=== PATIENT | male | born 1955 | race Caucasian/White ===

== ENCOUNTER 2017-06-03 17:23 | Observation (INO) | payer BC, OTHER ==
[2017-06-03] MEDS ORDERED: Sodium Chloride 0.9% 10 ML Syringe FLUSH PRN (17:41)
[2017-06-03] MEDS ORDERED: Sodium Chloride 0.9% 2.5 ML Syringe FLUSH PRN (17:41)
[2017-06-03] MEDS ORDERED: Ketorolac 30 MG/ML SDV IVPUSH ONE (17:41)
[2017-06-03] MEDS ORDERED: Sodium Chloride 0.9% 1,000 ML IV ONE (17:41)
--- NOTE | 2017-06-03 17:46 | EDM.PDOC ---
<BrockParviz José Miguel - Last Filed: 06/03/17 22:10> ED HPI GENERAL MEDICAL PROBLEM - General Chief Complaint: Abdominal Pain Stated Complaint: SHARP ABD PAIN Time Seen by Provider: 06/03/17 17:34 - History of Present Illness INITIAL COMMENTS - FREE TEXT/NARRATIVE: CT returned with cholelithiasis questionable nonobstructing stone in the common bile duct further ultrasound did not reveal her visualized common bile duct have a phone conversation with Dr. 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 Assessment Cholelithiasis Questionable CBD nonobstructing stone Plan patient will be admitted nothing by mouth after midnight follow liver function and lipase MRCP in the morning Lamine will be consult - Related Data Allergies Allergy/AdvReac Type Severity Reaction Status Date / Time No Known Allergies Allergy Verified 06/04/17 05:11 Home Meds: Home Meds Linagliptin [Tradjenta] 5 mg PO DAILY 06/03/17 [History] Losartan/Hydrochlorothiazide [Losartan-HCTZ 100-25 MG] 0.5 tab PO DAILY [History] Simvastatin [Zocor] 40 mg PO DAILY 06/03/17 [History] amLODIPine [Norvasc] 10 mg PO DAILY 06/03/17 [History] Course - Vital Signs Last Recorded V/S: Last Vital Signs Temp 36.3 C 06/03/17 22:50 Pulse 76 06/03/17 22:50 Resp 19 06/03/17 22:50 BP 144/89 H 06/03/17 22:50 Pulse Ox 93 L 06/03/17 22:50 - Orders/Labs/Meds Orders: Active Orders 24 hr Category Date Time Status Abdomen Ltd [US] Stat Exams 06/03/17 20:12 Taken Abdomen Pelvis wo Cont [CT] Stat Exams 06/03/17 19:05 Taken CULTURE URINE [RM] Stat Lab 06/03/17 18:14 Received Sodium Chloride 0.9% [Saline Flush] Med 06/03/17 17:41 Active 10 ml FLUSH ASDIRECTED PRN Sodium Chloride 0.9% [Saline Flush] Med 06/03/17 17:41 Active 2.5 ml FLUSH ASDIRECTED PRN Saline Lock Insert [OM.PC] Stat Oth 06/03/17 17:39 Ordered Medication Orders Sodium Chloride (Normal Saline) 1,000 mls @ 125 mls/hr IV ASDIRECTED RICHARD Last Admin: 06/04/17 04:16 Dose: 125 mls/hr Morphine Sulfate (Morphine) 2 mg IVPUSH Q2H PRN PRN Reason: Pain Ondansetron HCl (Zofran) 4 mg IVPUSH Q4H PRN PRN Reason: Nausea/Vomiting Sodium Chloride (Saline Flush) 10 ml FLUSH ASDIRECTED PRN PRN Reason: Keep Vein Open Last Admin: 06/03/17 18:12 Dose: 10 ml Sodium Chloride (Saline Flush) 2.5 ml FLUSH ASDIRECTED PRN PRN Reason: Keep Vein Open Last Admin: 06/03/17 18:13 Dose: 2.5 ml Labs: Laboratory Tests 06/03/17 06/03/17 06/03/17 Range/Units 18:14 18:14 18:14 WBC 11.64 H (4.0-11.0) K/uL RBC 4.53 (4.50-5.90) M/uL Hgb 14.1 (13.0-17.0) g/dL Hct 42.5 (38.0-50.0) % MCV 93.8 (80.0-98.0) fL MCH 31.1 (27.0-32.0) pg MCHC 33.2 (31.0-37.0) g/dL RDW Std Deviation 44.3 (28.0-62.0) fl RDW Coeff of Dalton 13 (11.0-15.0) % Plt Count 224 (150-400) K/uL MPV 10.40 (7.40-12.00) fL Neut % (Auto) 82.5 H (48.0-80.0) % Lymph % (Auto) 9.6 L (16.0-40.0) % [place] % (Auto) 7.0 (0.0-15.0) % Eos % (Auto) 0.3 (0.0-7.0) % Baso % (Auto) 0.6 (0.0-1.5) % Neut # (Auto) 9.6 H (1.4-5.7) K/uL Lymph # (Auto) 1.1 (0.6-2.4) K/uL [place] # (Auto) 0.8 (0.0-0.8) K/uL Eos # (Auto) 0.0 (0.0-0.7) K/uL Baso # (Auto) 0.1 (0.0-0.1) K/uL Nucleated RBC % 0.0 /100WBC Nucleated RBCs # 0 K/uL Sodium 135 L (136-146) mmol/L Potassium 5.5 H (3.5-5.1) mmol/L Chloride 106 (98-110) mmol/L Carbon Dioxide 17 L (21-31) mmol/L BUN 40 H (6.0-23.0) mg/dL Creatinine 2.1 H (0.6-1.5) mg/dL Est Cr Clr Drug Dosing 39.52 mL/min Estimated GFR (MDRD) 32.1 ml/min Glucose 183 H (60-110) mg/dL Calcium 9.4 (8.8-10.8) mg/dL Total Bilirubin 0.3 (0.1-1.5) mg/dL AST 35 (5-40) IU/L ALT 38 (8-54) IU/L Alkaline Phosphatase 60 (40-150) Total Protein 8.5 H (6.0-8.0) g/dL Albumin 4.3 (3.4-4.8) g/dL Globulin 4.2 H (2.0-3.5) g/dL Albumin/Globulin Ratio 1.0 L (1.3-2.8) Amylase 34 (10-90) U/L Lipase 20 (7-80) U/L Urine Color YELLOW Urine Appearance CLEAR Urine pH 5.5 (5.0-8.0) Ur Specific [place] 1.020 (1.001-1.035) Urine Protein TRACE (NEGATIVE) mg/dL Urine Glucose (UA) 250 H (NEGATIVE) mg/dL Urine Ketones NEGATIVE (NEGATIVE) mg/dL Urine Occult Blood LARGE H (NEGATIVE) Urine Nitrite NEGATIVE (NEGATIVE) Urine Bilirubin NEGATIVE (NEGATIVE) Urine Urobilinogen 0.2 (<2.0) EU/dL Ur Leukocyte Esterase NEGATIVE (NEGATIVE) Urine RBC TOO NUMBEROUS TO CT (0-2/HPF) Urine WBC 0-1 (0-5/HPF) Ur Epithelial Cells RARE (NONE-FEW) Calcium Oxalate Crystal OCCASIONAL (NEGATIVE) Urine Bacteria FEW (NEGATIVE) Meds: Medications Generic Name Dose Route Start Last Admin Trade Name Heshamq PRN Reason Stop Dose Admin Sodium Chloride 1,000 mls @ 125 mls/hr 06/03/17 22:45 06/04/17 04:16 Normal Saline IV 125 mls/hr ASDIRECTED RICHARD Administration Morphine Sulfate 2 mg 06/03/17 22:36 Morphine IVPUSH Q2H PRN Pain Ondansetron HCl 4 mg 06/03/17 22:36 Zofran IVPUSH Q4H PRN Nausea/Vomiting Sodium Chloride 10 ml 06/03/17 17:41 06/03/17 18:12 Saline Flush FLUSH 10 ml ASDIRECTED PRN Administration Keep Vein Open Sodium Chloride 2.5 ml 06/03/17 17:41 06/03/17 18:13 Saline Flush FLUSH 2.5 ml ASDIRECTED PRN Administration Keep Vein Open Discontinued Medications Generic Name Dose Route Start Last Admin Trade Name Heshamq PRN Reason Stop Dose Admin Sodium Chloride 1,000 mls @ 999 mls/hr 06/03/17 17:41 06/03/17 18:12 Normal Saline IV 06/03/17 18:41 999 mls/hr STAT ONE Administration Sodium Chloride 1,000 mls @ 125 mls/hr 06/03/17 19:45 06/03/17 19:39 Normal Saline IV 125 mls/hr STAT RICHARD Administration Ketorolac Tromethamine 30 mg 06/03/17 17:41 06/03/17 18:12 Toradol IVPUSH 06/03/17 17:42 30 mg ONETIME ONE Administration Departure - Departure Time of Disposition: 22:12 Disposition: Refer to Observation Condition: Fair Clinical Impression: Right flank pain, Cholelithiasis - Discharge Information - My Orders Last 24 Hours: My Active Orders 06/03/17 17:39 Saline Lock Insert [OM.PC] Stat 06/03/17 17:41 Sodium Chloride 0.9% [Saline Flush] 10 ml FLUSH ASDIRECTED PRN Sodium Chloride 0.9% [Saline Flush] 2.5 ml FLUSH ASDIRECTED PRN 06/03/17 18:14 CULTURE URINE [RM] Stat - Assessment/Plan Last 24 Hours: My Active Orders 06/03/17 17:39 Saline Lock Insert [OM.PC] Stat 06/03/17 17:41 Sodium Chloride 0.9% [Saline Flush] 10 ml FLUSH ASDIRECTED PRN Sodium Chloride 0.9% [Saline Flush] 2.5 ml FLUSH ASDIRECTED PRN 06/03/17 18:14 CULTURE URINE [RM] Stat <Camila Ceballos - Last Filed: 06/04/17 07:03> ED HPI GENERAL MEDICAL PROBLEM - History of Present Illness INITIAL COMMENTS - FREE TEXT/NARRATIVE: HISTORY AND PHYSICAL: History of present illness: The patient is a 61-year-old male with a history of [id number] diabetes hypertension hypercholesterolemia who follows at [facility] with Dr. Carrera and presents with onset of right lower flank pain that radiates to the right mid and right lower abdomen that started at 2 PM today. It was not sudden in onset but he did feel the discomfort which seemed to progress very quickly to this current pain. He says it's very deep and does radiate to his groin. He has no history of kidney stones or kidney trouble and has had no hematuria or dysuria. He's had no fevers chills nausea vomiting or diarrhea associated with this discomfort. Patient has not had any abdominal surgical history and he did not take anything specifically for this pain. He does not have any history of trauma to the area such as falls or abnormal strenuous activity. He has no midline back pain in this discomfort does not radiate to his buttocks or to his leg. He has no weakness in his lower extremities and no neurovascular changes. He says his bowel movements have been normal for him without change in color or character. Review of systems: As per history of present illness and below otherwise all systems reviewed and negative. Past medical history: As per history of present illness and as reviewed below otherwise noncontributory. Surgical history: As per history of present illness and as reviewed below otherwise noncontributory. Social history: No reported history of drug or alcohol abuse. Family history: As per history of present illness and as reviewed below otherwise noncontributory. Physical exam: Gen.: Well-developed overweight man who is nontoxic and moves easily in the ED without distress. His vital signs have been noted by me HEENT: Atraumatic, normocephalic, negative for conjunctival pallor or scleral icterus, mucous membranes moist, throat clear, neck supple, nontender, trachea midline. Lungs: Clear to auscultation, breath sounds equal bilaterally, chest nontender. Heart: S1S2, regular rate and rhythm no overt murmurs Abdomen: Soft, nondistended, nontender. Abdomen is very rotund and there is no tympany on percussion and bowel sounds are slightly hypoactive. There is no tenderness on deep palpation of the right upper or right lower quadrants but at the right mid abdomen at the level of the umbilicus there is some discomfort on very deep palpation without rebound or guarding. Negative for masses or hepatosplenomegaly. Negative for costovertebral tenderness. Pelvis: Stable nontender. Genitourinary: Deferred. Rectal: Deferred. Extremities: Atraumatic, negative for cords or calf pain. Neurovascular unremarkable. Neuro: Awake, alert, oriented. Cranial nerves II through XII unremarkable. Cerebellum unremarkable. Motor and sensory unremarkable throughout. Exam nonfocal. Back: There are no midline step-offs in his defects of the thoracic or lumbar spine no CVA tenderness and on palpation of the right flank and right upper lumbar/thoracic area there is no reproducible tenderness or soft tissue injuries appreciated Diagnostics: UA urine culture CBC CMP amylase lipase CT scan of the abdomen and pelvis Therapeutics: IV fluids Toradol 1900: Case is endorsed to Dr. Watson to follow-up on the lab tests as well as the CAT scan results and disposition the patient Impression: Right flank pain/right abdominal pain Definitive disposition and diagnosis as appropriate pending reevaluation and review of above. Rt. Flank Pain Score (Numeric/FACES): 10 Past Medical History Cardiovascular History: Reports: Hypertension Endocrine/Metabolic History: Reports: Diabetes, Type II - Past Surgical History Musculoskeletal Surgical History: Reports: Other (See Below) Other Musculoskeletal Surgeries/Procedures:: hamstring surgery Social & Family History - Family History Family Medical History: Noncontributory - Tobacco Use Smoking Status *Q: Never Smoker - Recreational Drug Use Recreational Drug Use: No ED ROS GENERAL - Review of Systems Review Of Systems: ROS reveals no pertinent complaints other than HPI. ED EXAM, GENERAL - Physical Exam Exam: See Below (See dictation) Course - Orders/Labs/Meds Labs: Laboratory Tests 06/03/17 06/03/17 06/03/17 Range/Units 18:14 18:14 18:14 WBC 11.64 H (4.0-11.0) K/uL RBC 4.53 (4.50-5.90) M/uL Hgb 14.1 (13.0-17.0) g/dL Hct 42.5 (38.0-50.0) % MCV 93.8 (80.0-98.0) fL MCH 31.1 (27.0-32.0) pg MCHC 33.2 (31.0-37.0) g/dL RDW Std Deviation 44.3 (28.0-62.0) fl RDW Coeff of Dalton 13 (11.0-15.0) % Plt Count 224 (150-400) K/uL MPV 10.40 (7.40-12.00) fL Neut % (Auto) 82.5 H (48.0-80.0) % Lymph % (Auto) 9.6 L (16.0-40.0) % [place] % (Auto) 7.0 (0.0-15.0) % Eos % (Auto) 0.3 (0.0-7.0) % Baso % (Auto) 0.6 (0.0-1.5) % Neut # (Auto) 9.6 H (1.4-5.7) K/uL Lymph # (Auto) 1.1 (0.6-2.4) K/uL [place] # (Auto) 0.8 (0.0-0.8) K/uL Eos # (Auto) 0.0 (0.0-0.7) K/uL Baso # (Auto) 0.1 (0.0-0.1) K/uL Nucleated RBC % 0.0 /100WBC Nucleated RBCs # 0 K/uL Sodium 135 L (136-146) mmol/L Potassium 5.5 H (3.5-5.1) mmol/L Chloride 106 (98-110) mmol/L Carbon Dioxide 17 L (21-31) mmol/L BUN 40 H (6.0-23.0) mg/dL Creatinine 2.1 H (0.6-1.5) mg/dL Est Cr Clr Drug Dosing 39.52 mL/min Estimated GFR (MDRD) 32.1 ml/min Glucose 183 H (60-110) mg/dL Calcium 9.4 (8.8-10.8) mg/dL Total Bilirubin 0.3 (0.1-1.5) mg/dL AST 35 (5-40) IU/L ALT 38 (8-54) IU/L Alkaline Phosphatase 60 (40-150) Total Protein 8.5 H (6.0-8.0) g/dL Albumin 4.3 (3.4-4.8) g/dL Globulin 4.2 H (2.0-3.5) g/dL Albumin/Globulin Ratio 1.0 L (1.3-2.8) Amylase 34 (10-90) U/L Lipase 20 (7-80) U/L Urine Color YELLOW Urine Appearance CLEAR Urine pH 5.5 (5.0-8.0) Ur Specific [place] 1.020 (1.001-1.035) Urine Protein TRACE (NEGATIVE) mg/dL Urine Glucose (UA) 250 H (NEGATIVE) mg/dL Urine Ketones NEGATIVE (NEGATIVE) mg/dL Urine Occult Blood LARGE H (NEGATIVE) Urine Nitrite NEGATIVE (NEGATIVE) Urine Bilirubin NEGATIVE (NEGATIVE) Urine Urobilinogen 0.2 (<2.0) EU/dL Ur Leukocyte Esterase NEGATIVE (NEGATIVE) Urine RBC TOO NUMBEROUS TO CT (0-2/HPF) Urine WBC 0-1 (0-5/HPF) Ur Epithelial Cells RARE (NONE-FEW) Calcium Oxalate Crystal OCCASIONAL (NEGATIVE) Urine Bacteria FEW (NEGATIVE)
[2017-06-03] MEDS ORDERED: Sodium Chloride 0.9% 1,000 ML IV SCH ×2 (19:45→22:45)
[2017-06-03] MEDS ORDERED: Ondansetron 4 MG/2 ML SDV IVPUSH PRN (22:36)
[2017-06-03] MEDS ORDERED: Morphine 2 MG/ML Syringe IVPUSH PRN (22:36)
--- NOTE | 2017-06-04 08:05 | PCM.HP ---
H&P History of Present Illness - General Date of Service: 06/04/17 Admit Problem/Dx: Admission Diagnosis/Problem Admission Diagnosis/Problem Cholelithiasis Source of Information: Patient History Limitations: Reports: No Limitations - History of Present Illness Initial Comments - Free Text/Narative: 61-year-old male with a history of HTN, Hypercholesterolemia & NIDDM admitted for cholelithiasis. Patient presented to ED with right sided abdominal pain that began suddenly yesterday evening. Pain began as discomfort but rapidly increased in severity causing him to present to the ED. He denies any associated fever, chills, nausea, vomiting, dysuria, hematuria or changes in urine/stool frequency. No previous history of kidney stones or abdominal surgery. In the ED his labs and vitals were normal. CT abdomen revealed cholelithiasis questionable nonobstructing stone in the common bile duct. RUQ US was done but CBD was not visualized. Dr. Aceves was consulted from ED and she recommended admit to observation for MRCP this morning. Patient states today he is doing better. His abdominal pain has nor recurred since admission. He continues to urinate but denies any pain or difficulty. ED Course Diagnostics: UA, urine culture, CBC, CMP, amylase, lipase, CT scan of the abdomen and pelvis wo contrast, abdominal US Therapeutics: IV fluids, Toradol Consults: Dr. Aceves, General Surgery Rt. Flank Pain Score (Numeric/FACES): 10 - Related Data Allergies/Adverse Reactions: Allergies Allergy/AdvReac Type Severity Reaction Status Date / Time No Known Allergies Allergy Verified 06/04/17 05:11 Home Medications: Home Meds Linagliptin [Tradjenta] 5 mg PO DAILY 06/03/17 [History] Losartan/Hydrochlorothiazide [Losartan-HCTZ 100-25 MG] 0.5 tab PO DAILY [History] Simvastatin [Zocor] 40 mg PO DAILY 06/03/17 [History] amLODIPine [Norvasc] 10 mg PO DAILY 06/03/17 [History] Past Medical History Cardiovascular History: Reports: Hypertension Endocrine/Metabolic History: Reports: Diabetes, Type II Dermatologic History: Reports: Other (See Below) Other Dermatologic History: rash to rith upper,outer thigh - Past Surgical History Musculoskeletal Surgical History: Reports: Other (See Below) Other Musculoskeletal Surgeries/Procedures:: hamstring surgery Social & Family History - Family History Family Medical History: Noncontributory Cardiac: Reports: Hypertension - Tobacco Use Smoking Status *Q: Never Smoker Second Hand Smoke Exposure: No - Caffeine Use Caffeine Use: Reports: Coffee Other Caffeine Use: "once in a while" - Recreational Drug Use Recreational Drug Use: No H&P Review of Systems - Review of Systems: Review Of Systems: See Below General: Reports: No Symptoms HEENT: Reports: No Symptoms Pulmonary: Reports: No Symptoms Cardiovascular: Reports: No Symptoms Genitourinary: Reports: No Symptoms Musculoskeletal: Reports: No Symptoms Skin: Reports: No Symptoms Psychiatric: Reports: No Symptoms Neurological: Reports: No Symptoms Hematologic/Lymphatic: Reports: No Symptoms Immunologic: Reports: No Symptoms Exam - Exam Exam: See Below - Vital Signs Vital Signs: Last Vital Signs Temp 36.3 C 06/04/17 04:00 Pulse 93 06/04/17 04:00 Resp 18 06/04/17 04:00 BP 119/57 L 06/04/17 04:00 Pulse Ox 93 L 06/04/17 04:00 Weight: 132.5 kg - Exam General: Alert, Oriented, Cooperative HEENT: Conjunctiva Clear, EACs Clear, EOMI, Hearing Intact, Mucosa Moist & [place] , Nares Patent, Normal Nasal Septum, Posterior Pharynx Clear, Pupils Equal, Pupils Reactive, TMs Clear Neck: Supple, Trachea Midline Lungs: Clear to Auscultation, Normal Respiratory Effort Cardiovascular: Regular Rate, Regular Rhythm GI/Abdominal Exam: Normal Bowel Sounds, Soft, Non-Tender Back Exam: Normal Inspection Extremities: Normal Inspection, Normal Capillary Refill Skin: Warm, Dry, Intact Neurological: Cranial Nerves Intact, Reflexes Equal Bilateral Neuro Extensive - Mental Status: Alert, Oriented x3 Psychiatric: Alert, Normal Affect, Normal Mood - Patient Data Lab Results Last 24 hrs: Laboratory Results - last 24 hr 06/04/17 06/04/17 Range/Units 05:11 05:11 WBC 8.42 (4.0-11.0) K/uL RBC 4.32 L (4.50-5.90) M/uL Hgb 13.4 (13.0-17.0) g/dL Hct 40.3 (38.0-50.0) % MCV 93.3 (80.0-98.0) fL MCH 31.0 (27.0-32.0) pg MCHC 33.3 (31.0-37.0) g/dL RDW Std Deviation 43.9 (28.0-62.0) fl RDW Coeff of [place] 13 (11.0-15.0) % Plt Count 216 (150-400) K/uL MPV 9.90 (7.40-12.00) fL Neut % (Auto) 64.3 (48.0-80.0) % Lymph % (Auto) 22.6 (16.0-40.0) % [place] % (Auto) 10.2 (0.0-15.0) % Eos % (Auto) 2.3 (0.0-7.0) % Baso % (Auto) 0.6 (0.0-1.5) % Neut # (Auto) 5.4 (1.4-5.7) K/uL Lymph # (Auto) 1.9 (0.6-2.4) K/uL [place] # (Auto) 0.9 H (0.0-0.8) K/uL Eos # (Auto) 0.2 (0.0-0.7) K/uL Baso # (Auto) 0.1 (0.0-0.1) K/uL Nucleated RBC % 0.0 /100WBC Nucleated RBCs # 0 K/uL Sodium 139 (136-146) mmol/L Potassium 4.3 (3.5-5.1) mmol/L Chloride 110 (98-110) mmol/L Carbon Dioxide 21 (21-31) mmol/L BUN 31 H (6.0-23.0) mg/dL Creatinine 1.6 H (0.6-1.5) mg/dL Est Cr Clr Drug Dosing 51.87 mL/min Estimated GFR (MDRD) 43.9 ml/min Glucose 122 H (60-110) mg/dL Calcium 8.7 L (8.8-10.8) mg/dL Total Bilirubin 0.5 (0.1-1.5) mg/dL AST 23 (5-40) IU/L ALT 32 (8-54) IU/L Alkaline Phosphatase 57 (40-150) Total Protein 6.6 (6.0-8.0) g/dL Albumin 3.8 (3.4-4.8) g/dL Globulin 2.8 (2.0-3.5) g/dL Albumin/Globulin Ratio 1.4 (1.3-2.8) Result Diagrams: 06/04/17 05:11 06/04/17 05:11 *Q Meaningful Use (ADM) - VTE *Q VTE Criteria *Q: - Stroke *Q Stroke Criteria *Q: - AMI *Q AMI Criteria *Q: Problem List Initiated/Reviewed/Updated: Yes Orders Last 24hrs: Active Orders 24 hr Category Date Time Status NPO [Nothing Per Oral Diet] [DIET] Diet 06/04/17 Breakfast Active Abdomen w wo Cont [MR] Stat Exams 06/04/17 07:46 Ordered Morphine Med 06/03/17 22:36 Active 2 mg IVPUSH Q2H PRN Ondansetron [Zofran] Med 06/03/17 22:36 Active 4 mg IVPUSH Q4H PRN Sodium Chloride 0.9% [Normal Saline] 1,000 ml Med 06/03/17 22:45 Active IV ASDIRECTED Medication Orders Sodium Chloride (Normal Saline) 1,000 mls @ 125 mls/hr IV ASDIRECTED RICHARD Last Admin: 06/04/17 04:16 Dose: 125 mls/hr Morphine Sulfate (Morphine) 2 mg IVPUSH Q2H PRN PRN Reason: Pain Ondansetron HCl (Zofran) 4 mg IVPUSH Q4H PRN PRN Reason: Nausea/Vomiting Sodium Chloride (Saline Flush) 10 ml FLUSH ASDIRECTED PRN PRN Reason: Keep Vein Open Last Admin: 06/03/17 18:12 Dose: 10 ml Sodium Chloride (Saline Flush) 2.5 ml FLUSH ASDIRECTED PRN PRN Reason: Keep Vein Open Last Admin: 06/03/17 18:13 Dose: 2.5 ml Assessment/Plan Comment:: 61 year old male with history of HTN, NIDDM & hypercholesterolemia admitted for right abdominal pain presumed secondary to cholelithiasis and/or Nephrolithiaisis #Cholelithiasis -borderline leukocytosis at admission, now resolved -AST/ALT/TBR normal -CT abdomen-pelvis wo contrast suggestive of Cholelithiasis and probable nonobstructing choledocholithiasis in distal CBD -Abdominal US revealed Gallstones in the gallbladder with thickened wall at 0.4 cm but no signs of cholecystitis. CBD was not visualized. -General surgery Dr. Aceves was consulted from ED who recommened MRCP plan: -MRCP ordered , patient currently NPO -as per Dr. Aceves, if MRCP is negative then patient will be cleared from General surgery point of view #ASHLEY -elevated BUN 40 & Cr 2.1 at admission, improved this AM to BUN 31 & Cr 1.6 -UA positive for blood -patient denies dysuria, gross hematuria or change in urinary frequency -CT abdomen-pelvis wo contrast suggestive of possible right renal stone: mild to moderate atrophy of the right and mild atrophy of the left kidney with perinephric stranding. Small triangular-shaped calyceal calculus versus milk of calcium posterior inferior right lower lobe. Perinephric cysts on the left. No significant mass or findings for obstruction. Both ureters are upper normal caliber without definitive filling defect. -Abdominal US reveals Right nonobstructing stone, but no mention of size of stone plan: -continue IVF -start flomax for nephrolithiasis once MRCP complete -monitor renal function -hold Toradol #Nephrolithiasis, right kidney, nonobstructing -as per above -consider out-patient referral to Urology at discharge #Right sided abdominal Pain -pain improved -plan as per above #hepatic Steatosis -likely secondary to obesity and/or NIDDM -no significant changes on hepatic panel -f/u with PCP at discharge
--- NOTE | 2017-06-04 12:06 | PCM.CONS ---
H&P History of Present Illness - General Date of Service: 06/04/17 Admit Problem/Dx: Admission Diagnosis/Problem Admission Diagnosis/Problem Cholelithiasis Source of Information: Patient History Limitations: Reports: No Limitations - History of Present Illness Initial Comments - Free Text/Narative: patient is a 61-year-old male who presented last night to the emergency room with right sided abdominal pain. He denies ever having pain like this before. it came on suddenly and rapidly increased in severity. He presented to the emergency room. He denied any fevers chills nausea vomiting shortness of breath or chest pain. Workup in the emergency room revealed a mild leukocytosis and elevated BUN/creatinine and hyperkalemia. CT the abdomen pelvis showed cholelithiasis with questionable choledocholithiasis. An ultrasound was performed that showed a mildly thickened gallbladder wall, cholelithiasis, but the common bile duct was unable to be visualized. His lipase and amylaseand liver function tests and bilirubin were all within normal limits. He was given IV fluids and pain medicine. His pain resolved. He was admitted to the medicine service for observation. The pain has not returned. Hislabs this morning all appear normal. Rt. Flank Pain Score (Numeric/FACES): 10 - Related Data Allergies/Adverse Reactions: Allergies Allergy/AdvReac Type Severity Reaction Status Date / Time No Known Allergies Allergy Verified 06/04/17 05:11 Home Medications: Home Meds Linagliptin [Tradjenta] 5 mg PO DAILY 06/03/17 [History] Losartan/Hydrochlorothiazide [Losartan-HCTZ 100-25 MG] 0.5 tab PO DAILY [History] Simvastatin [Zocor] 40 mg PO DAILY 06/03/17 [History] amLODIPine [Norvasc] 10 mg PO DAILY 06/03/17 [History] Past Medical History Cardiovascular History: Reports: Hypertension Endocrine/Metabolic History: Reports: Diabetes, Type II Dermatologic History: Reports: Other (See Below) Other Dermatologic History: rash to rith upper,outer thigh - Past Surgical History Musculoskeletal Surgical History: Reports: Other (See Below) Other Musculoskeletal Surgeries/Procedures:: hamstring surgery Social & Family History - Family History Family Medical History: Noncontributory Cardiac: Reports: Hypertension - Tobacco Use Smoking Status *Q: Never Smoker Second Hand Smoke Exposure: No - Caffeine Use Caffeine Use: Reports: Coffee Other Caffeine Use: "once in a while" - Recreational Drug Use Recreational Drug Use: No H&P Review of Systems - Review of Systems: Review Of Systems: See Below Exam - Exam Exam: See Below - Vital Signs Vital Signs: Last Vital Signs Temp 36.7 C 06/04/17 08:00 Pulse 82 06/04/17 08:00 Resp 18 06/04/17 08:00 BP 141/84 H 06/04/17 08:00 Pulse Ox 94 L 06/04/17 08:00 Weight: 132.5 kg - Exam General: Alert, Oriented HEENT: Conjunctiva Clear, EOMI, Hearing Intact, Mucosa Moist & Cantril, Posterior Pharynx Clear Neck: Supple Lungs: Clear to Auscultation, Normal Respiratory Effort Cardiovascular: Regular Rate, Regular Rhythm GI/Abdominal Exam: Soft, Non-Tender, No Distention, No Mass. No: Guarding, Rigid, Rebound Back Exam: Normal Inspection Extremities: Normal Inspection - Patient Data Lab Results Last 24 hrs: Laboratory Results - last 24 hr 06/04/17 06/04/17 Range/Units 05:11 05:11 WBC 8.42 (4.0-11.0) K/uL RBC 4.32 L (4.50-5.90) M/uL Hgb 13.4 (13.0-17.0) g/dL Hct 40.3 (38.0-50.0) % MCV 93.3 (80.0-98.0) fL MCH 31.0 (27.0-32.0) pg MCHC 33.3 (31.0-37.0) g/dL RDW Std Deviation 43.9 (28.0-62.0) fl RDW Coeff of Dalton 13 (11.0-15.0) % Plt Count 216 (150-400) K/uL MPV 9.90 (7.40-12.00) fL Neut % (Auto) 64.3 (48.0-80.0) % Lymph % (Auto) 22.6 (16.0-40.0) % [place] % (Auto) 10.2 (0.0-15.0) % Eos % (Auto) 2.3 (0.0-7.0) % Baso % (Auto) 0.6 (0.0-1.5) % Neut # (Auto) 5.4 (1.4-5.7) K/uL Lymph # (Auto) 1.9 (0.6-2.4) K/uL [place] # (Auto) 0.9 H (0.0-0.8) K/uL Eos # (Auto) 0.2 (0.0-0.7) K/uL Baso # (Auto) 0.1 (0.0-0.1) K/uL Nucleated RBC % 0.0 /100WBC Nucleated RBCs # 0 K/uL Sodium 139 (136-146) mmol/L Potassium 4.3 (3.5-5.1) mmol/L Chloride 110 (98-110) mmol/L Carbon Dioxide 21 (21-31) mmol/L BUN 31 H (6.0-23.0) mg/dL Creatinine 1.6 H (0.6-1.5) mg/dL Est Cr Clr Drug Dosing 51.87 mL/min Estimated GFR (MDRD) 43.9 ml/min Glucose 122 H (60-110) mg/dL Calcium 8.7 L (8.8-10.8) mg/dL Total Bilirubin 0.5 (0.1-1.5) mg/dL AST 23 (5-40) IU/L ALT 32 (8-54) IU/L Alkaline Phosphatase 57 (40-150) Total Protein 6.6 (6.0-8.0) g/dL Albumin 3.8 (3.4-4.8) g/dL Globulin 2.8 (2.0-3.5) g/dL Albumin/Globulin Ratio 1.4 (1.3-2.8) Result Diagrams: 06/04/17 05:11 06/04/17 05:11 Consult PN Assessment/Plan Procedures: Procedures X-RAY EXAM KNEE 4 OR MORE (06/04/15) Problem List Initiated/Reviewed/Updated: Yes My Orders Last 24 Hours: My Active Orders 06/04/17 07:46 Abdomen w wo Cont [MR] Stat Plan: Symptomatic cholelthiasis possible choledocholithiasis: The patient will undergo an MRCP this morning. If that shows no evidence of choledocholithiasis he is ok to go home. I would have him follow-up in one week with me so that we can schedule him for an outpatient laparoscopic cholecystectomy. He should avoid fatty foods and return to the ED should his symptoms reoccur. If he has choledocholithiasis (which I doubt given his normal LFTs, bilirubin) he may need to undergo an ERCP. Will follow up on the results of the MRCP and make final recommendations if there is any abnormal findings.
[2017-06-04] MEDS ORDERED: Gadobenate Dimeglumine 529 MG/ML 20 ML SDV IVPUSH STA (12:54)
--- NOTE | 2017-06-04 14:02 | MR ---
EXAMINATION: MRI abdomen with and without contrast/MRCP HISTORY: CT evidence of choledocholithiasis COMPARISON: CT dated 06/03/2017 TECHNIQUE: Multiplanar and multisequence imaging obtained of the abdomen before and following the adm inistration of 6 mL of MultiHance. The MRCP protocol was used with thick slab MIP reconstructions. FINDINGS: The liver, spleen, adrenal glands, and pancreas appear normal in signal. Several cholelith iasis are noted without significant pericholecystic fluid. There is no definite filling defect noted within the common bile duct. No intra or extrahepatic biliary ductal dilatation. The pancreatic duct appears normal. There is moderate focal thickening of the proximal second portion of the duodenum wit h mild adjacent edema. This area of the duodenum also demonstrates mildly increased relative and enha ncement. The kidneys enhance and function symmetrically without evidence of obstructive uropathy. There is a c yst within the upper pole of the left kidney. No significant abdominal ascites. No bulky retroperiton eal lymphadenopathy. Visualized bone marrow signal appears normal. IMPRESSION: 1. Cholelithiasis without evidence cholecystitis. 2. No choledocholithiasis noted. 3. Moderate stranding mucosal thickening involving the proximal second portion of the duodenum. This likely represents underlying duodenitis versus peptic ulcer disease.
--- NOTE | 2017-06-04 14:48 | PCM.SN ---
- Free Text/Narrative Note: As per Dr. Rothman patient found to have duodenitis. She has ordered H.pylori studies. If positive will treat, if not patient can be sent home on 40mg pantoprazole and follow-up with her in 1 Week.
--- NOTE | 2017-06-04 15:57 | CT ---
EXAM DATE: 06/03/17 PATIENT'S AGE: 61 Patient: RAMBO JIMENES Facility: [place], [place] Site . Site : 1955 Study: CT Abdomen/Pelvis WO TUNG [id number]/4/2018 7:37:35 PM Ordering Physician: Lin Jensen Final Report: INDICATION: Right-sided flank pain radiating into the abdomen. TECHNIQUE: CT abdomen and pelvis without contrast. COMPARISON: None FINDINGS: Lower chest: Strandy atelectasis at both costophrenic angles. Liver: Mild low attenuation diffusely. Spleen: Unremarkable. Pancreas: Unremarkable. Gallbladder and bile ducts: Peripherally mineralized small dependent gallstones. No inflammation. No biliary ductal dilatation. Punctate 1 mm density dependently distal common bile duct may be a nonobstructing choledocholith. Kidneys: Mild to moderate atrophy of the right and mild atrophy of the left kidney with perinephric stranding. Small triangular-shaped calyceal calculus versus milk of calcium posterior inferior right lower lobe. Perinephric cysts on the left. No significant mass or findings for obstruction. Both ureters are upper normal caliber without definitive filling defect. Adrenal glands: Unremarkable. GI tract: Unremarkable. Appendix is normal. Vascular structures: There is moderate diffuse atherosclerosis without aneurysmal dilatation. Lymph nodes: Unremarkable. Miscellaneous: Unremarkable. No free air or significant free fluid. Pelvic Organs: Unremarkable. Bones: Moderately prominent left greater than right sacroiliac degenerative arthrosis. No fracture or bone lesion. Diffuse mild degenerative disk disease. Mild osteoarthritis of both hips and symphysis pubis. IMPRESSION: Cholelithiasis and probable nonobstructing choledocholithiasis distal CBD. Direct visualization or MRCP for further characterization if there is ongoing clinical concern. Correlation with LFT studies recommended. Small amount of calcium cyst or small caliceal calculus lower pole on the right. Mild atrophy right kidney. Mild hepatic steatosis. Please note that all CT scans at this facility use dose modulation, iterative reconstruction, and/or weight-based dosing when appropriate to reduce radiation dose to as low as reasonably achievable. Dictated by Raul Casanova MD @ Jun 03 2017 7:50PM (Electronic Signature) Report Signed by Proxy. [facility]
--- NOTE | 2017-06-04 16:14 | US ---
EXAM DATE: 06/03/17 PATIENT'S AGE: 61 Patient: RAMBO JIMENES Facility: [place], [place] Site . Site : 1955 Study: US Abdomen [id number] 9:33:18 PM Ordering Physician: Lin Jensen Final Report: Indication: Pain. Findings : Examination is limited due to patient body habitus and overlying bowel gas. The liver is diffusely coarsened and echogenic reflecting fatty infiltration. The right kidney is increased in echotexture relative to the liver and an echogenic focus reflecting a stone is noted in the right lower kidney. Gallstones are noted in the gallbladder and the wall is thickened at 0.4 cm. A Goodman`s sign was not encountered during the course of this exam. The common bile duct was unable to be visualized. The pancreas is not visualized. Impression: 1. Cholelithiasis. 2. Stone right lower kidney, nonobstructing. 3. Cholelithiasis without ultrasound evidence of cholecystitis. 4. Hepatic steatosis. 5. Nonvisualization of the pancreas. Dictated by Josselyn Aguilar MD @ Jun 03 2017 10:01PM (Electronic Signature) Report Signed by Proxy. [facility]
--- NOTE | 2017-06-04 16:24 | PCM.DCSUM1 ---
Discharge Summary - Hospital Course Free Text/Narrative:: 61 yo male admitted 06/03/17 for right sided abdominal pain. His pain was acute and resolved shortly after admission. He did not have this pain in the past. Work-up was suggestive of Cholelithiasis. Dr. Aceves was consulted and ordered MRCP which was negative. Patient was cleared by general surgery and recommended out-patient f/u in 1 week. He was discharged home 06/04/17. #Cholelithiasis -borderline leukocytosis at admission, now resolved -AST/ALT/TBR normal -CT abdomen-pelvis wo contrast suggestive of Cholelithiasis and probable nonobstructing choledocholithiasis in distal CBD -Abdominal US revealed Gallstones in the gallbladder with thickened wall at 0.4 cm but no signs of cholecystitis. CBD was not visualized. -MRCP negative -consulted Dr. Aceves General surgery plan: -f/u with Dr. Aceves in 1 week #ASHLEY -elevated BUN 40 & Cr 2.1 at admission, improved this AM to BUN 31 & Cr 1.6 -UA positive for blood -Abdominal US reveals Right nonobstructing stone, but no mention of size of stone -patient instructed to increase PO fluid intake and will f/u with PCP for monitoring of renal function #Nephrolithiasis, right kidney, nonobstructing -f/u with PCP #Right sided abdominal Pain, resolved -plan as per above #hepatic Steatosis -likely secondary to obesity and/or NIDDM -no significant changes on hepatic panel -recommended exercise and weight loss -f/u with PCP - Discharge Data Discharge Date: 06/04/17 Discharge Disposition: Home, Self-Care 01 Condition: Good - Patient Instructions Diet, Other: avoid fatty foods until follow-up with general surgery Activity: As Tolerated Notify Provider of: Fever, Increased Pain, Swelling and Redness, Drainage, Nausea and/or Vomiting - Discharge Plan Prescriptions/Med Rec: Pantoprazole Sodium [Protonix] 40 mg PO DAILY #30 tablet.dr Home Medications: Home Meds Linagliptin [Tradjenta] 5 mg PO DAILY 06/03/17 [History] Losartan/Hydrochlorothiazide [Losartan-HCTZ 100-25 MG] 0.5 tab PO DAILY [History] Simvastatin [Zocor] 40 mg PO DAILY 06/03/17 [History] amLODIPine [Norvasc] 10 mg PO DAILY 06/03/17 [History] Pantoprazole Sodium [Protonix] 40 mg PO DAILY #30 tablet. 06/04/17 [Rx] Forms: ED Department Discharge Referrals: Cecily Aceves MD [Physician] - PCP,None [Primary Care Provider] - (1 week to monitor renal fuction ) - Discharge Summary/Plan Comment DC Time >30 min.: No - Patient Data Vitals - Most Recent: Last Vital Signs Temp 36.4 C 06/04/17 14:00 Pulse 72 06/04/17 14:00 Resp 18 06/04/17 14:00 BP 145/84 H 06/04/17 14:00 Pulse Ox 94 L 06/04/17 14:00 Weight - Most Recent: 132.5 kg I&O - Last 24 hours: Intake & Output 06/04/17 06/04/17 06/04/17 06:59 14:59 22:59 Intake Total 616 Output Total 1000 Balance -384 Lab Results - Last 24 hrs: Laboratory Results - last 24 hr 06/04/17 06/04/17 06/04/17 Range/Units 05:11 05:11 05:11 WBC 8.42 (4.0-11.0) K/uL RBC 4.32 L (4.50-5.90) M/uL Hgb 13.4 (13.0-17.0) g/dL Hct 40.3 (38.0-50.0) % MCV 93.3 (80.0-98.0) fL MCH 31.0 (27.0-32.0) pg MCHC 33.3 (31.0-37.0) g/dL RDW Std Deviation 43.9 (28.0-62.0) fl RDW Coeff of [place] 13 (11.0-15.0) % Plt Count 216 (150-400) K/uL MPV 9.90 (7.40-12.00) fL Neut % (Auto) 64.3 (48.0-80.0) % Lymph % (Auto) 22.6 (16.0-40.0) % [place] % (Auto) 10.2 (0.0-15.0) % Eos % (Auto) 2.3 (0.0-7.0) % Baso % (Auto) 0.6 (0.0-1.5) % Neut # (Auto) 5.4 (1.4-5.7) K/uL Lymph # (Auto) 1.9 (0.6-2.4) K/uL [place] # (Auto) 0.9 H (0.0-0.8) K/uL Eos # (Auto) 0.2 (0.0-0.7) K/uL Baso # (Auto) 0.1 (0.0-0.1) K/uL Nucleated RBC % 0.0 /100WBC Nucleated RBCs # 0 K/uL Sodium 139 (136-146) mmol/L Potassium 4.3 (3.5-5.1) mmol/L Chloride 110 (98-110) mmol/L Carbon Dioxide 21 (21-31) mmol/L BUN 31 H (6.0-23.0) mg/dL Creatinine 1.6 H (0.6-1.5) mg/dL Est Cr Clr Drug Dosing 51.87 mL/min Estimated GFR (MDRD) 43.9 ml/min Glucose 122 H (60-110) mg/dL Calcium 8.7 L (8.8-10.8) mg/dL Total Bilirubin 0.5 (0.1-1.5) mg/dL AST 23 (5-40) IU/L ALT 32 (8-54) IU/L Alkaline Phosphatase 57 (40-150) Total Protein 6.6 (6.0-8.0) g/dL Albumin 3.8 (3.4-4.8) g/dL Globulin 2.8 (2.0-3.5) g/dL Albumin/Globulin Ratio 1.4 (1.3-2.8) H. pylori IgG Antibody NEGATIVE (NEG) Med Orders - Current: Current Medications Sodium Chloride (Normal Saline) 1,000 mls @ 125 mls/hr IV [facility]ED [facility] Last Admin: 06/04/17 04:16 Dose: 125 mls/hr Morphine Sulfate (Morphine) 2 mg IVPUSH Q2H PRN PRN Reason: Pain Ondansetron HCl (Zofran) 4 mg IVPUSH Q4H PRN PRN Reason: Nausea/Vomiting Sodium Chloride (Saline Flush) 10 ml FLUSH ASDIRECTED PRN PRN Reason: Keep Vein Open Last Admin: 06/03/17 18:12 Dose: 10 ml Sodium Chloride (Saline Flush) 2.5 ml FLUSH ASDIRECTED PRN PRN Reason: Keep Vein Open Last Admin: 06/03/17 18:13 Dose: 2.5 ml Discontinued Medications Gadobenate Dimeglumine (Multihance) 20 ml IVPUSH ONETIME STA Stop: 06/04/17 12:55 Last Admin: 06/04/17 12:55 Dose: 10 ml Sodium Chloride (Normal Saline) 1,000 mls @ 999 mls/hr IV STAT ONE Stop: 06/03/17 18:41 Last Admin: 06/03/17 18:12 Dose: 999 mls/hr Sodium Chloride (Normal Saline) 1,000 mls @ 125 mls/hr IV STAT RICHARD Last Admin: 06/03/17 19:39 Dose: 125 mls/hr Ketorolac Tromethamine (Toradol) 30 mg IVPUSH ONETIME ONE Stop: 06/03/17 17:42 Last Admin: 06/03/17 18:12 Dose: 30 mg *Q Meaningful Use (DIS) - VTE *Q VTE Criteria *Q: - Stroke *Q Stroke Criteria *Q: - AMI *Q AMI Criteria *Q:
--- NOTE | 2017-06-04 16:53 | PCM.SN ---
- Free Text/Narrative Note: patient was found to have inflammation around the duodenum on MRI. H. pylori antigen test was negative. He should go home on Protonix 40 mg every before meals. I will see him in clinic in 1-2 weeks to schedule him for an outpatient EGD and laparoscopic cholecystectomy.
== END 2017-06-04 18:00 | disposition home or self-care (01) ==
LOC: MW.ED 17:23 → MW.MS 22:13
PROVIDERS: ADMIT Family Medicine; ATTEND Family Medicine
DX: K80.20 Calculus of gallbladder without cholecystitis without obstruction (principal); D72.829 Elevated white blood cell count, unspecified; N17.9 Acute kidney failure, unspecified; N20.0 Calculus of kidney; K76.0 Fatty (change of) liver, not elsewhere classified; E66.9 Obesity, unspecified; E11.9 Type 2 diabetes mellitus without complications; I10 Essential (primary) hypertension; E78.00 Pure hypercholesterolemia, unspecified; K29.80 Duodenitis without bleeding; Z79.899 Other long term (current) drug therapy
CPT/HCPCS: 36415; 74176; 74183; 76705; 80053; 81001; 82150; 83690; 85025; 86677; 87086; 93005; 96361; 96374; 99285; A9577; J1885; J7040; 99284; G0378

== ENCOUNTER 2017-06-24 12:28 | Day surgery (SDC) | payer BC ==
[~2017-06-24 12:28] MED LIST: Lactated Ringers 1,000 ML IV SCH; Sodium Chloride 0.9% 10 ML Syringe FLUSH PRN; Sodium Chloride 0.9% 2.5 ML Syringe FLUSH PRN
--- NOTE | 2017-06-24 14:18 | PCM.PREANE ---
Preanesthetic Assessment - Anesthesia/Transfusion/Family Hx Anesthesia History: Prior Anesthesia Without Reaction Other Type of Anesthesia Reaction Comment: "spinal did not work with my hamstring surgery" Family History of Anesthesia Reaction: No Transfusion History: No Prior Transfusion(s) - Review of Systems General: No Symptoms Pulmonary: No Symptoms Cardiovascular: No Symptoms Neurological: No Symptoms Other: Reports: None - Physical Assessment NPO Status Date: 06/23/17 Height: 1.83 m Weight: 131.542 kg ASA Class: 2 Mental Status: Alert & Oriented x3 Airway Class: Mallampati = 1 Dentition: Reports: Missing Tooth/Teeth ROM/Head Extension: Full Lungs: Clear to Auscultation, Normal Respiratory Effort Cardiovascular: Regular Rate, Regular Rhythm - Allergies Allergies/Adverse Reactions: Allergies Allergy/AdvReac Type Severity Reaction Status Date / Time No Known Allergies Allergy Verified 06/21/17 15:15 - Anesthesia Plan Pre-Op Medication Ordered: None - Acknowledgements Anesthesia Type Planned: MAC Pt an Appropriate Candidate for the Planned Anesthesia: Yes Alternatives and Risks of Anesthesia Discussed w Pt/Guardian: Yes Pt/Guardian Understands and Agrees with Anesthesia Plan: Yes PreAnesthesia Questionnaire Cardiovascular History: Reports: High Cholesterol, Hypertension Musculoskeletal History: Reports: Fracture, Osteoarthritis Other Musculoskeletal History: hx fx foot and fx finger rt hand Endocrine/Metabolic History: Reports: Diabetes, Type II, Obesity/BMI 30+ Dermatologic History: Reports: None - Past Surgical History Head Surgeries/Procedures: Reports: None Cardiovascular Surgical History: Reports: None Musculoskeletal Surgical History: Reports: Other (See Below) Other Musculoskeletal Surgeries/Procedures:: hamstring surgery , surgical tx for fx finger on rt hand - SUBSTANCE USE Smoking Status *Q: Never Smoker Second Hand Smoke Exposure: No Recreational Drug Use History: No - HOME MEDS Home Medications: Home Meds Linagliptin [Tradjenta] 5 mg PO DAILY 06/03/17 [History] Simvastatin [Zocor] 40 mg PO DAILY 06/03/17 [History] Pantoprazole Sodium [Protonix] 40 mg PO DAILY #30 tablet. 06/04/17 [Rx] Losartan Potassium 25 mg PO DAILY 06/21/17 [History] Nebivolol [Bystolic] 20 mg PO DAILY 06/21/17 [History] - CURRENT (IN HOUSE) MEDS Current Meds: Current Medications Lactated Ringer's (Ringers, Lactated) 1,000 mls @ 125 mls/hr IV ASDIRECTED RICHARD Sodium Chloride (Saline Flush) 10 ml FLUSH ASDIRECTED PRN PRN Reason: Keep Vein Open Sodium Chloride (Saline Flush) 2.5 ml FLUSH ASDIRECTED PRN PRN Reason: Keep Vein Open
[2017-06-24] MEDS ORDERED: Lidocaine 2% 5 ML SDV ONE (14:41)
[2017-06-24] MEDS ORDERED: Propofol 200 MG/20 ML SDV ONE (14:42)
[2017-06-24] MEDS ORDERED: Midazolam 1 MG/ML 2 ML SDV ONE (14:42)
--- NOTE | 2017-06-24 15:28 | PCM.OPNOTE ---
- General Post-Op/Procedure Note Date of Surgery/Procedure: 06/24/17 Operative Procedure(s): EGD Findings: Duodenal ulcers Pre Op Diagnosis: Duodenitis Post-Op Diagnosis: Duodenal ulcers Anesthesia Technique: MAC Primary Surgeon: Cecily Aceves Condition: Good
--- NOTE | 2017-06-24 16:01 | PCM.POSTAN ---
POST ANESTHESIA ASSESSMENT - MENTAL STATUS Mental Status: Alert, Oriented - RESPIRATORY Respiratory Status: Respiratory Rate WNL, Airway Patent, O2 Saturation Stable - CARDIOVASCULAR CV Status: Pulse Rate WNL, Blood Pressure Stable - GASTROINTESTINAL GI Status: No Symptoms - POST OP HYDRATION Hydration Status: Adequate & Stable
--- NOTE | 2017-06-24 16:38 | PCM48HPAN ---
Post Anesthesia Note - EVALUATION WITHIN 48HRS OF ANESTHETIC Vital Signs in Normal Range: Yes Patient Participated in Evaluation: Yes Respiratory Function Stable: Yes Airway Patent: Yes Cardiovascular Function Stable: Yes Hydration Status Stable: Yes Pain Control Satisfactory: Yes Nausea and Vomiting Control Satisfactory: Yes Mental Status Recovered: Yes
--- NOTE | 2017-06-24 23:09 | OR ---
SURGEON: CECILY ACEVES MD DATE OF PROCEDURE: 06/24/2017 PREOPERATIVE DIAGNOSIS: Duodenitis. POSTOPERATIVE DIAGNOSIS: Duodenal ulcers. PROCEDURE PERFORMED: Diagnostic EGD and biopsies. ENDOSCOPIST: Cecily Aceves M.D. ANESTHESIA: MAC. INSTRUMENT USED: Olympus endoscope. EXTENT OF EXAM: To the second portion of the duodenum. PREPARATION: Good. LIMITATIONS: None. INDICATION FOR EXAMINATION: The patient is a 62-year-old male who was admitted to the hospital with severe epigastric pain. An MRI of the abdomen showed duodenitis. The patient was discharged home on Protonix. After discharge, the patient developed melena. He was started on sucralfate as well. After starting the sucralfate, the melena subsided. The patient complains that the Protonix gives him joint aches and so it is unknown whether or not he is taking this medication faithfully. Either way, the patient and I discussed the need for a diagnostic EGD. We discussed the procedure, expected perioperative course, and risks including bleeding or perforation. The patient verbalized understanding and wishes to proceed. PROCEDURE IN DETAIL: The patient was brought into the endoscopy suite and placed in a beach chair position. A time-out was completed verifying the patient's name, age, date of , allergies, and procedure to be performed. A bite block was placed in the patient's mouth and monitored anesthesia care induced. Continuous oxygen was provided via nasal cannula throughout the procedure. After adequate sedation was achieved, a well lubricated endoscope was placed in the patient's mouth and advanced under direct visualization to the level of the second portion of the duodenum. The second portion of the duodenum appeared normal and a photograph was taken. The scope was then fully withdrawn while examining the color, texture, anatomy, integrity, mucosa from the cecum to the anal canal. The patient was found to have a large ulcer along the posterior aspect of the duodenum, in the distal first portion. This did not appear to have any stigmata of bleeding. Several small ulcers were noted around this area. The first portion of the duodenum did appear inflamed and biopsies were taken. The scope was then brought in the stomach and a photograph was taken of the pylorus as well as the GE junction. Both appeared normal. The gastric mucosa was free of inflammation or ulceration. Biopsies were taken of the gastric antrum, body, and fundus and sent for H. pylori testing and histologic review. The scope was then brought into the distal esophagus. A photograph was taken of the Z-line, which appeared normal. The scope was then fully withdrawn and the remainder of the esophageal mucosa appeared normal. The scope was removed from the patient. The procedure terminated. The patient tolerated the procedure well and was taken to the PACU in stable condition. ENDOSCOPIC DIAGNOSIS: Duodenal ulcers. RECOMMENDATIONS: I explained to the patient the importance of taking his PPI daily. I will switch him to omeprazole 40 mg every morning to see if this is better tolerated. He should continue to take the sucralfate. We will follow up with the patient in 2 weeks. LULÚ MEADE /[id number]
== END 2017-06-24 16:30 | disposition home or self-care (01) ==
LOC: MW.SDS 12:28
PROVIDERS: ATTEND Surgery
DX: K29.80 Duodenitis without bleeding (principal); K29.50 Unspecified chronic gastritis without bleeding; I10 Essential (primary) hypertension; M17.0 Bilateral primary osteoarthritis of knee; K80.20 Calculus of gallbladder without cholecystitis without obstruction; E11.9 Type 2 diabetes mellitus without complications; E66.9 Obesity, unspecified; Z68.39 Body mass index [BMI] 39.0-39.9, adult; Z79.899 Other long term (current) drug therapy; Z79.84 Long term (current) use of oral hypoglycemic drugs
CPT/HCPCS: 43239; J2250; J7120; 88305; 88312; J2704

== ENCOUNTER 2017-09-02 06:22 | Day surgery (SDC) | payer BC ==
--- NOTE | 2017-09-02 06:58 | PCM.PREANE ---
Preanesthetic Assessment - Anesthesia/Transfusion/Family Hx Anesthesia History: Prior Anesthesia Without Reaction Other Type of Anesthesia Reaction Comment: "spinal did not work with my hamstring surgery" Family History of Anesthesia Reaction: No Transfusion History: No Prior Transfusion(s) Intubation History: Unknown - Review of Systems General: No Symptoms Pulmonary: No Symptoms Cardiovascular: No Symptoms Gastrointestinal: No Symptoms, Other (recently diagnosed duodenal ulcer) Neurological: No Symptoms Other: Reports: None - Physical Assessment Height: 1.83 m Weight: 130.181 kg ASA Class: 3 Mental Status: Alert & Oriented x3 Airway Class: Mallampati = 3 Dentition: Reports: Missing Tooth/Teeth (multiple upper and lower) Thyro-Mental Finger Breadths: 3 Mouth Opening Finger Breadths: 2 ROM/Head Extension: Full Lungs: Clear to Auscultation, Normal Respiratory Effort Cardiovascular: Regular Rate, Regular Rhythm - Lab Values: Laboratory Last Values POC Glucose 170 mg/dL (60-110) H 09/02/17 06:41 - Allergies Allergies/Adverse Reactions: Allergies Allergy/AdvReac Type Severity Reaction Status Date / Time No Known Allergies Allergy Verified 06/21/17 15:15 - Blood Blood Available: No - Anesthesia Plan Pre-Op Medication Ordered: None - Acknowledgements Anesthesia Type Planned: MAC Pt an Appropriate Candidate for the Planned Anesthesia: Yes Alternatives and Risks of Anesthesia Discussed w Pt/Guardian: Yes Pt/Guardian Understands and Agrees with Anesthesia Plan: Yes PreAnesthesia Questionnaire Cardiovascular History: Reports: High Cholesterol, Hypertension Gastrointestinal History: Reports: Cholelithiasis, Other (See Below) Other Gastrointestinal History: duodenal ulcers, Musculoskeletal History: Reports: Fracture, Osteoarthritis Other Musculoskeletal History: hx fx foot and fx finger rt hand Endocrine/Metabolic History: Reports: Diabetes, Type II, Obesity/BMI 30+ Dermatologic History: Reports: None - Past Surgical History Head Surgeries/Procedures: Reports: None Cardiovascular Surgical History: Reports: None GI Surgical History: Reports: EGD (2 months ago) Musculoskeletal Surgical History: Reports: Other (See Below) Other Musculoskeletal Surgeries/Procedures:: hamstring surgery , surgical tx for fx finger on rt hand - SUBSTANCE USE Smoking Status *Q: Never Smoker Second Hand Smoke Exposure: No Recreational Drug Use History: No - HOME MEDS Home Medications: Home Meds Linagliptin [Tradjenta] 5 mg PO DAILY 06/03/17 [History] Simvastatin [Zocor] 40 mg PO DAILY 06/03/17 [History] Losartan Potassium 25 mg PO DAILY 06/21/17 [History] Nebivolol [Bystolic] 20 mg PO DAILY 06/21/17 [History] Omeprazole 40 mg PO DAILY #60 cap.sr 06/24/17 [Rx] Sucralfate 1 gm PO QID #56 tablet 06/24/17 [Rx] - CURRENT (IN HOUSE) MEDS Current Meds: Current Medications Lactated Ringer's (Ringers, Lactated) 1,000 mls @ 125 mls/hr IV ASDIRECTED [facility] Last Admin: 09/02/17 06:50 Dose: 125 mls/hr Sodium Chloride (Saline Flush) 10 ml FLUSH ASDIRECTED PRN PRN Reason: Keep Vein Open Sodium Chloride (Saline Flush) 2.5 ml FLUSH ASDIRECTED PRN PRN Reason: Keep Vein Open Sodium Chloride (Saline Flush) 10 ml FLUSH ASDIRECTED PRN PRN Reason: Keep Vein Open Sodium Chloride (Saline Flush) 2.5 ml FLUSH ASDIRECTED PRN PRN Reason: Keep Vein Open
[2017-09-02] MEDS ORDERED: fentaNYL 100 MCG/2 ML SDV ONE (07:28)
[2017-09-02] MEDS ORDERED: Lidocaine 2% 5 ML SDV ONE (07:28)
[2017-09-02] MEDS ORDERED: Midazolam 1 MG/ML 2 ML SDV ONE (07:28)
[2017-09-02] MEDS ORDERED: Propofol 200 MG/20 ML SDV ONE (07:28)
--- NOTE | 2017-09-02 07:59 | PCM.OPNOTE ---
- General Post-Op/Procedure Note Date of Surgery/Procedure: 09/02/17 Operative Procedure(s): Diagnostic EGD Findings: Healed duodenal ulcers. Normal mucosa Pre Op Diagnosis: Duodenal ulcer Post-Op Diagnosis: Resolved duodenal ulcers Anesthesia Technique: MAC Primary Surgeon: Cecily Aceves Condition: Good
--- NOTE | 2017-09-02 08:17 | PCM48HPAN ---
Post Anesthesia Note - EVALUATION WITHIN 48HRS OF ANESTHETIC Vital Signs in Normal Range: Yes Patient Participated in Evaluation: Yes Respiratory Function Stable: Yes Airway Patent: Yes Cardiovascular Function Stable: Yes Hydration Status Stable: Yes Pain Control Satisfactory: Yes Nausea and Vomiting Control Satisfactory: Yes Mental Status Recovered: Yes Resp Rate: 10 - COMMENTS/OBSERVATIONS Free Text/Narrative:: no anesthesia problems
--- NOTE | 2017-09-02 09:25 | OR ---
SURGEON: JOSE JUAN SALEEM MD DATE OF PROCEDURE: 09/02/2017 PREOPERATIVE DIAGNOSIS: Duodenal ulcer. POSTOPERATIVE DIAGNOSIS: Normal esophagogastroduodenoscopy. PROCEDURE PERFORMED: Diagnostic esophagogastroduodenoscopy. ANESTHESIA: MAC. INSTRUMENT USED: Olympus endoscope. EXTENT OF EXAMINATION: Second portion of duodenum. PREPARATION: Good. LIMITATIONS: None. INDICATION FOR EXAMINATION: The patient is a 62-year-old male who presented two months ago with severe epigastric pain. Workup revealed duodenal ulcers. He was placed on a PPI, and his symptoms have resolved. The patient does have cholelithiasis and is scheduled for a laparoscopic cholecystectomy. Prior to this procedure, a decision was made to proceed with a diagnostic EGD to ensure that the duodenal ulcers have completely healed. The patient and I discussed the procedure, expected perioperative course, and risks including bleeding or perforation. The patient verbalized understanding and wishes to proceed. PROCEDURE IN DETAIL: The patient was brought into the endoscopy suite and placed in a beach chair position. A time-out was completed verifying the patient's name, age, date of , allergies, and procedure to be performed. A bite-block was placed in the patient's mouth and monitored anesthesia care induced. Continuous oxygen was provided via nasal cannula throughout the procedure. After adequate sedation was achieved, a well-lubricated endoscope was placed in the patient's mouth and advanced under direct visualization to the level of the second portion of duodenum. This appeared normal and a photograph was taken. The scope was then fully withdrawn while examining the color, texture, anatomy, and integrity of the mucosa of the upper GI tract. The patient's duodenum appeared to be well healed with no evidence of any residual inflammation or ulceration. The scope was brought into the stomach, and a photograph was taken of the pylorus as well as the GE junction. Both appeared normal. The gastric mucosa was free of pathology. The scope was then brought into the distal esophagus, and a photograph was taken of the Z-line. This appeared normal. There was no evidence of esophagitis or reflux. The remainder of the esophageal mucosa was normal. The scope was then removed from the patient. The procedure was terminated, and the patient was transferred to the PACU in stable condition. ENDOSCOPIC DIAGNOSIS: Normal esophagogastroduodenoscopy. RECOMMENDATIONS: Continue omeprazole for now. The patient is scheduled for a laparoscopic cholecystectomy and will continue with procedure. LULÚ MEADE /[id number]
== END 2017-09-02 08:30 | disposition home or self-care (01) ==
LOC: MW.SDS 06:22
PROVIDERS: ATTEND Surgery
DX: K26.9 Duodenal ulcer, unspecified as acute or chronic, without hemorrhage or perforation (principal); I10 Essential (primary) hypertension; E11.9 Type 2 diabetes mellitus without complications; Z79.899 Other long term (current) drug therapy
CPT/HCPCS: 43235; 82962; J2250; J3010; J7120; 00731; J2704

== ENCOUNTER 2017-09-14 06:42 | Day surgery (SDC) | payer BC ==
[~2017-09-14 06:42] MED LIST changes: +ceFAZolin 2 GM in Premix Bag 1 BAG IV ONE
[2017-09-14] MEDS ORDERED: Propofol 200 MG/20 ML SDV ONE (07:07)
[2017-09-14] MEDS ORDERED: fentaNYL 100 MCG/2 ML SDV ONE ×2 (07:07→08:08)
[2017-09-14] MEDS ORDERED: Midazolam 1 MG/ML 2 ML SDV ONE (07:07)
--- NOTE | 2017-09-14 07:14 | PCM.PREANE ---
Preanesthetic Assessment - Anesthesia/Transfusion/Family Hx Anesthesia History: Prior Anesthesia Without Reaction Other Type of Anesthesia Reaction Comment: "spinal did not work with my hamstring surgery" Family History of Anesthesia Reaction: No Transfusion History: No Prior Transfusion(s) Intubation History: Unknown - Review of Systems General: No Symptoms Pulmonary: No Symptoms Cardiovascular: No Symptoms Gastrointestinal: No Symptoms, Other (cholelithiasis) Neurological: No Symptoms Other: Reports: None - Physical Assessment O2 Sat by Pulse Oximetry: 93 Respiratory Rate: 16 Vital Signs: Last Vital Signs Temp 36.4 C 09/14/17 06:47 Pulse 68 09/14/17 06:47 Resp 16 09/14/17 06:47 BP 147/92 H 09/14/17 06:47 Pulse Ox 93 L 09/14/17 06:47 Height: 1.83 m Weight: 130.181 kg ASA Class: 3 Mental Status: Alert & Oriented x3 Airway Class: Mallampati = 2 Dentition: Reports: Broken Tooth/Teeth (multiple), Missing Tooth/Teeth ( multiple upper and lower) Thyro-Mental Finger Breadths: 3 Mouth Opening Finger Breadths: 3 ROM/Head Extension: Full Lungs: Clear to Auscultation, Normal Respiratory Effort Cardiovascular: Regular Rate, Regular Rhythm - Allergies Allergies/Adverse Reactions: Allergies Allergy/AdvReac Type Severity Reaction Status Date / Time No Known Allergies Allergy Verified 09/09/17 07:55 - Blood Blood Available: No - Anesthesia Plan Pre-Op Medication Ordered: None - Acknowledgements Anesthesia Type Planned: General Anesthesia Pt an Appropriate Candidate for the Planned Anesthesia: Yes Alternatives and Risks of Anesthesia Discussed w Pt/Guardian: Yes Pt/Guardian Understands and Agrees with Anesthesia Plan: Yes PreAnesthesia Questionnaire Cardiovascular History: Reports: High Cholesterol, Hypertension Gastrointestinal History: Reports: Cholelithiasis, Other (See Below) Other Gastrointestinal History: duodenal ulcers Musculoskeletal History: Reports: Fracture, Osteoarthritis Other Musculoskeletal History: hx fx foot and fx finger rt hand Endocrine/Metabolic History: Reports: Diabetes, Type II, Obesity/BMI 30+ Dermatologic History: - Past Surgical History Head Surgeries/Procedures: Reports: None Cardiovascular Surgical History: Reports: None GI Surgical History: Reports: EGD Musculoskeletal Surgical History: Reports: Other (See Below) Other Musculoskeletal Surgeries/Procedures:: hamstring surgery , surgical tx for fx finger on rt hand - SUBSTANCE USE Smoking Status *Q: Never Smoker Second Hand Smoke Exposure: No Recreational Drug Use History: No - HOME MEDS Home Medications: Home Meds Linagliptin [Tradjenta] 5 mg PO DAILY 06/03/17 [History] Simvastatin [Zocor] 40 mg PO DAILY 06/03/17 [History] Losartan Potassium 25 mg PO DAILY 06/21/17 [History] Nebivolol [Bystolic] 20 mg PO DAILY 06/21/17 [History] Omeprazole 40 mg PO DAILY #60 cap.sr 06/24/17 [Rx] Sucralfate 1 gm PO QID #56 tablet 06/24/17 [Rx] - CURRENT (IN HOUSE) MEDS Current Meds: Current Medications Lactated Ringer's (Ringers, Lactated) 1,000 mls @ 125 mls/hr IV ASDIRECTED [facility] Last Admin: 09/14/17 06:52 Dose: 125 mls/hr Sodium Chloride (Saline Flush) 10 ml FLUSH ASDIRECTED PRN PRN Reason: Keep Vein Open Sodium Chloride (Saline Flush) 2.5 ml FLUSH ASDIRECTED PRN PRN Reason: Keep Vein Open Discontinued Medications Fentanyl (Sublimaze) Confirm Administered Dose 200 mcg .ROUTE .STK-MED ONE Stop: 09/14/17 07:08 Cefazolin Sodium/Dextrose 2 gm (/ Premix) 50 mls @ 100 mls/hr IV ONETIME ONE Stop: 09/13/17 12:36 Midazolam HCl (Versed 1 Mg/Ml) Confirm Administered Dose 2 mg .ROUTE .STK-MED ONE Stop: 09/14/17 07:08 Propofol (Diprivan 20 Ml) Confirm Administered Dose 200 mg .ROUTE .STK-MED ONE Stop: 09/14/17 07:08
[2017-09-14] MEDS ORDERED: Ondansetron 4 MG/2 ML SDV ONE (07:15)
[2017-09-14] MEDS ORDERED: Glycopyrrolate 0.2 MG/ML SDV ONE (07:15)
[2017-09-14] MEDS ORDERED: Ketorolac 30 MG/ML SDV ONE (07:15)
[2017-09-14] MEDS ORDERED: Neostigmine Methylsulfate 1 MG/ML 5 ML Syringe ONE (07:15)
[2017-09-14] MEDS ORDERED: Lidocaine 2% 5 ML SDV ONE (07:15)
[2017-09-14] MEDS ORDERED: Scopolamine 1.5 MG Transdermal Patch TRDERM PRN (07:15)
[2017-09-14] MEDS ORDERED: Rocuronium 10 MG/ML 10 ML Syringe ONE (07:15)
[2017-09-14] MEDS ORDERED: Desflurane 240 ML Bottle ONE (07:19)
[2017-09-14] MEDS ORDERED: Bupivacaine 0.5% 30 ML SDV ONE (07:23)
[2017-09-14] MEDS ORDERED: Phenylephrine/Normal Saline 100 MCG/ML 10 ML Syringe ONE ×2 (08:00→08:22)
[2017-09-14] MEDS ORDERED: ePHEDrine 50 MG/ML SDV ONE (08:18)
[2017-09-14] MEDS ORDERED: fentaNYL 100 MCG/2 ML SDV IVPUSH PRN (09:25)
--- NOTE | 2017-09-14 09:33 | PCM.OPNOTE ---
- General Post-Op/Procedure Note Date of Surgery/Procedure: 09/14/17 Operative Procedure(s): Laparoscopic cholecystectomy Findings: Mildly cirrhotic liver. Mild-moderately inflamed gallbladder. Pre Op Diagnosis: Symptomatic cholelithiasis Post-Op Diagnosis: same Anesthesia Technique: General ET Tube Primary Surgeon: Cecily Aceves EBL in mLs: 20 Condition: Good
--- NOTE | 2017-09-14 10:00 | PCM.POSTAN ---
POST ANESTHESIA ASSESSMENT - MENTAL STATUS Mental Status: Alert, Oriented - RESPIRATORY Respiratory Status: Respiratory Rate WNL, Airway Patent, O2 Saturation Stable, Supplemental Oxygen (per NC) - CARDIOVASCULAR CV Status: Pulse Rate WNL, Blood Pressure Stable - GASTROINTESTINAL GI Status: No Symptoms - PAIN Pain Score: 4 - POST OP HYDRATION Hydration Status: Adequate & Stable - OBSERVATIONS Free Text/Narrative:: Pt stable for discharge to phase II recovery. No anesthesia complications.
--- NOTE | 2017-09-14 10:37 | OR ---
SURGEON: JOSE JUAN SALEEM MD DATE OF PROCEDURE: 09/14/2017 PREOPERATIVE DIAGNOSIS: Symptomatic cholelithiasis. POSTOPERATIVE DIAGNOSIS: Symptomatic cholelithiasis. PROCEDURE PERFORMED: Laparoscopic cholecystectomy. ANESTHESIA: General endotracheal anesthesia. FLUIDS: See anesthesia record. URINE OUTPUT: See anesthesia record. ESTIMATED BLOOD LOSS: 20 mL. PATHOLOGY: Gallbladder. FINDINGS: Mildly cirrhotic liver. The gallbladder with [id number] inflammation. COMPLICATIONS: None. INDICATIONS: The patient is a 62-year-old male, who recently was treated for duodenal ulcer. Two weeks ago, the patient underwent a diagnostic EGD which revealed complete resolution of his peptic ulcer disease. He was incidentally found to have gallstones during his workup. The patient continues to have right upper quadrant and right shoulder pain. A decision was made to remove the gallbladder. The patient and I discussed the laparoscopic and open approaches. I explained that should I be unable to safely complete it laparoscopically, I would convert to open. We discussed the procedure, expected perioperative course, and risks including bleeding, infection, or damage to surrounding structures. The patient verbalized understanding and wishes to proceed. PROCEDURE IN DETAIL: The patient was brought into the OR and placed on the OR table in supine position. A time-out was completed verifying the patient's name, age, date of , allergies, and procedure to be performed. General endotracheal anesthesia was induced. The left arm was tucked to the patient's side and a Reyes catheter placed. The abdomen was prepped and draped in usual standard fashion. An area above the umbilicus was anesthetized with 0.5% Marcaine plain. A 2 cm supraumbilical incision was made using an 11 blade. Cautery was used to dissect down to the subcutaneous fat. S retractors were used to dissect bluntly down to the level of the fascia. The fascia was elevated with Louie's and incised sharply with the Metzenbaum scissors. Entry into the abdomen was palpated with my finger. A 12 mm Darrell trocar was inserted in the abdomen. The abdomen was insufflated to a pressure of 13 mmHg. A 5 mm 30-degree scope was inserted in the abdomen, and I inspected the area underneath my initial incision. No damage to surrounding structures was noted. The patient was placed into reverse Trendelenburg position and airplaned slightly to the left. The trocars were placed in the following locations: One in the epigastric area, one in the right flank, and one along the right subcostal margin in the midclavicular line. I attempted to grasp the dome of the gallbladder with an atraumatic grasper, but it was tense and full of bile. An aspirating needle was brought into the field and used to aspirate 120 mL of bilious appearing fluid from the gallbladder. This allowed me to adequately manipulate the gallbladder without undue tension. The dome of the gallbladder was lifted cranially. There were adhesions. The surrounding omentum was adhesed up to the body of the gallbladder wall. These were lysed with gentle blunt dissection as well as hook cautery. The infundibulum was noted to be encased in inflamed-appearing fat. This was scored using hook cautery and then bluntly dissected. The cystic duct and artery were skeletonized to allow adequate visualization of their insertion points on the gallbladder. I then cleared away the gallbladder from the proximal one-third of the cystic plate. A photograph was taken once I reached my critical view. A clip bean sprout grower was used to doubly clip and ligate my cystic duct and artery. The gallbladder was then removed from the gallbladder fossa using electrocautery. A small rent was made in the gallbladder wall and bile was spilled into the abdomen. Once the gallbladder was completely freed from the gallbladder fossa, it was placed in an EndoCatch bag and removed through the supraumbilical port site. The 12 mm trocar was placed back in the abdomen, and I inspected my operative field. The spilled bile and blood was suctioned clear. Hemostasis was achieved using electrocautery, and a small amount of Surgicel was placed in the gallbladder fossa. This appeared to achieve adequate hemostasis. The remainder of the abdomen was irrigated with normal saline until it ran clear. Inspection of the liver was notable for mild cirrhosis. The 5 mm trocars were then removed under direct visualization and the abdomen allowed to desufflate. The 12 mm Darrell trocar was removed as well. The fascia at the supraumbilical port site was closed with [id number] 0 Vicryl suture. The subcutaneous fat was closed with interrupted 3-0 Vicryls and the skin closed with a running 4-0 Monocryl stitch. The 5 mm trocar sites were closed with interrupted 4-0 Monocryls. Steri-Strips and sterile dressings were applied. The patient tolerated the procedure well and was taken to PACU in stable condition. LULÚ MEADE /[id number]
== END 2017-09-14 11:55 | disposition home or self-care (01) ==
LOC: MW.SDS 06:42
PROVIDERS: ATTEND Surgery
DX: K80.10 Calculus of gallbladder with chronic cholecystitis without obstruction (principal); K26.9 Duodenal ulcer, unspecified as acute or chronic, without hemorrhage or perforation; I10 Essential (primary) hypertension; M17.0 Bilateral primary osteoarthritis of knee; E11.9 Type 2 diabetes mellitus without complications; E78.00 Pure hypercholesterolemia, unspecified; E66.9 Obesity, unspecified; Z68.38 Body mass index [BMI] 38.0-38.9, adult; Z79.899 Other long term (current) drug therapy; Z79.84 Long term (current) use of oral hypoglycemic drugs
CPT/HCPCS: 47562; A9270; J1885; J2250; J2405; J3010; J7120; 88304; J2704

== ENCOUNTER 2017-10-04 09:13 | Emergency (ER) | payer OTHER, BC ==
[2017-10-04] MEDS ORDERED: Diphtheria,Pertussis(Acell),Tetanus Vaccine 0.5 ML Syringe IM ONE (09:30)
[2017-10-04] MEDS ORDERED: Silver Sulfadiazine 1% Crm 50 GM Tube TOP ONE (09:30)
--- NOTE | 2017-10-04 09:33 | EDM.PDOC ---
ED HPI GENERAL MEDICAL PROBLEM - General Chief Complaint: Burn Stated Complaint: RIGHT WRIST BURN WORK RELATED Time Seen by Provider: 10/04/17 09:28 Source of Information: Reports: Patient - History of Present Illness INITIAL COMMENTS - FREE TEXT/NARRATIVE: HISTORY AND PHYSICAL: History of present illness: [Patient was at work this morning morning and a radiator cap popped on a radiator burning his anterior wrist with antifreeze, painful blistering lesion approximately 3 inches in diameter no fever nausea vomiting chills sweats No chest pain shortness breath headache dizziness palpitation no bowel or urine symptoms ] Review of systems: As per history of present illness and below otherwise all systems reviewed and negative. Past medical history: As per history of present illness and as reviewed below otherwise noncontributory. Surgical history: As per history of present illness and as reviewed below otherwise noncontributory. Social history: No reported history of drug or alcohol abuse. Family history: As per history of present illness and as reviewed below otherwise noncontributory. Physical exam: HEENT: Atraumatic, normocephalic, pupils reactive, negative for conjunctival pallor or scleral icterus, mucous membranes moist, throat clear, neck supple, nontender, trachea midline. Lungs: Clear to auscultation, breath sounds equal bilaterally, chest nontender. Heart: S1S2, regular, negative for clicks, rubs, or JVD. Abdomen: Soft, nondistended, nontender. Negative for masses or hepatosplenomegaly. Negative for costovertebral tenderness. Pelvis: Stable nontender. Genitourinary: Deferred. Rectal: Deferred. Extremities: Atraumatic, negative for cords or calf pain. Neurovascular unremarkable. Neuro: Awake, alert, oriented. Cranial nerves II through XII unremarkable. Cerebellum unremarkable. Motor and sensory unremarkable throughout. Exam nonfocal. Skin as per history of present illness otherwise remarkable Diagnostics: [Clinical] Therapeutics: [Status updated Silvadene twice a day 10 days] Impression: [Second-degree burn right wrist], less than 1% total body surface area Definitive disposition and diagnosis as appropriate pending reevaluation and review of above. - Related Data Allergies Allergy/AdvReac Type Severity Reaction Status Date / Time No Known Allergies Allergy Verified 10/04/17 09:29 Home Meds: Home Meds Linagliptin [Tradjenta] 5 mg PO DAILY 06/03/17 [History] Simvastatin [Zocor] 40 mg PO DAILY 06/03/17 [History] Losartan Potassium 25 mg PO DAILY 06/21/17 [History] Nebivolol [Bystolic] 20 mg PO DAILY 06/21/17 [History] Omeprazole 40 mg PO DAILY #60 cap.sr 06/24/17 [Rx] Sucralfate 1 gm PO QID #56 tablet 06/24/17 [Rx] Past Medical History Cardiovascular History: Reports: High Cholesterol, Hypertension Gastrointestinal History: Reports: Cholelithiasis, Other (See Below) Other Gastrointestinal History: duodenal ulcers Musculoskeletal History: Reports: Fracture, Osteoarthritis Other Musculoskeletal History: hx fx foot and fx finger rt hand Endocrine/Metabolic History: Reports: Diabetes, Type II, Obesity/BMI 30+ Dermatologic History: - Past Surgical History Head Surgeries/Procedures: Reports: None Cardiovascular Surgical History: Reports: None GI Surgical History: Reports: EGD Musculoskeletal Surgical History: Reports: Other (See Below) Other Musculoskeletal Surgeries/Procedures:: hamstring surgery , surgical tx for fx finger on rt hand Social & Family History - Family History Family Medical History: Noncontributory Cardiac: Reports: Hypertension - Tobacco Use Smoking Status *Q: Never Smoker Second Hand Smoke Exposure: No - Caffeine Use Caffeine Use: Reports: Coffee Other Caffeine Use: "once in a while" - Recreational Drug Use Recreational Drug Use: No ED ROS GENERAL - Review of Systems Review Of Systems: ROS reveals no pertinent complaints other than HPI. ED EXAM, GENERAL - Physical Exam Exam: See Below Departure - Departure Time of Disposition: 09:31 Disposition: Home, Self-Care 01 Condition: Good Clinical Impression: Burn - Discharge Information Referrals: Denver Carrera MD [Primary Care Provider] - Additional Instructions: Silvadene applied twice a day 10 days Change dressing as needed if it becomes soiled Return if symptoms persist or worsen or redness warmth or pus fever nausea vomiting chills sweats which are signs of the burn becoming infected Follow-up with plastic surgery, call phone number below to schedule appropriate follow-up [facility] - [facility] Professional Building [address] [place] [address], [address] [place] [address] The following information is given to patients seen in the emergency department who are being discharged to home. This information is to outline your options for follow-up care. We provide all patients seen in our emergency department with a follow-up referral. The need for follow-up, as well as the timing and circumstances, are variable depending upon the specifics of your emergency department visit. If you don't have a primary care physician on staff, we will provide you with a referral. We always advise you to contact your personal physician following an emergency department visit to inform them of the circumstance of the visit and for follow-up with them and/or the need for any referrals to a consulting specialist. The emergency department will also refer you to a specialist when appropriate. This referral assures that you have the opportunity for follow-up care with a specialist. All of these measure are taken in an effort to provide you with optimal care, which includes your follow-up. Under all circumstances we always encourage you to contact your private physician who remains a resource for coordinating your care. When calling for follow-up care, please make the office aware that this follow-up is from your recent emergency room visit. If for any reason you are refused follow-up, please contact the [facility] emergency department at and asked to speak to the emergency department charge nurse.
== END 2017-10-04 10:37 | disposition home or self-care (01) ==
LOC: MW.ED 09:13
DX: T23.271A Burn of second degree of right wrist, initial encounter (principal); E78.00 Pure hypercholesterolemia, unspecified; I10 Essential (primary) hypertension; E11.9 Type 2 diabetes mellitus without complications; Z23 Encounter for immunization; Z79.899 Other long term (current) drug therapy; X16.XXXA Contact with hot heating appliances, radiators and pipes, initial encounter; Y99.0 Civilian activity done for income or pay
CPT/HCPCS: 16020; 90471; 90715; 99283; A9270

== ENCOUNTER 2018-01-20 18:10 | Emergency (ER) | payer BC, OTHER ==
--- NOTE | 2018-01-20 19:16 | EDM.PDOC ---
ED HPI GENERAL MEDICAL PROBLEM - General Chief Complaint: General Stated Complaint: RIGHT SIDE OF RIBS ARE IN PAIN Time Seen by Provider: 01/20/18 19:13 Source of Information: Reports: Patient History Limitations: Reports: No Limitations - History of Present Illness INITIAL COMMENTS - FREE TEXT/NARRATIVE: HISTORY AND PHYSICAL: History of present illness: Patient is a 62-year-old male here with rib pain following injury today. He states that he tripped over a mat earlier today and fell on to his left side. He denies hitting his head or LOC. He states he is having pain with deep breaths and sneezing now. He has not taken anything for his pain. Review of systems: As per history of present illness and below otherwise all systems reviewed and negative. Past medical history: As per history of present illness and as reviewed below otherwise noncontributory. Surgical history: As per history of present illness and as reviewed below otherwise noncontributory. Social history: No reported history of drug or alcohol abuse. Family history: As per history of present illness and as reviewed below otherwise noncontributory. Physical exam: General: patient sitting comfortably in no acute distress HEENT: Atraumatic, normocephalic, pupils reactive, negative for conjunctival pallor or scleral icterus, mucous membranes moist, throat clear, neck supple, nontender, trachea midline. Lungs: Clear to auscultation, breath sounds equal bilaterally, tenderness to palpation of right lateral chest. No ecchymosis noted and skin intact. Heart: S1S2, regular, negative for clicks, rubs, or JVD. Abdomen: Soft, nondistended, nontender. Negative for masses or hepatosplenomegaly. Negative for costovertebral tenderness. Pelvis: Stable nontender. Genitourinary: Deferred. Rectal: Deferred. Extremities: Atraumatic, negative for cords or calf pain. Neurovascular unremarkable. Neuro: Awake, alert, oriented. Cranial nerves II through XII unremarkable. Cerebellum unremarkable. Motor and sensory unremarkable throughout. Exam nonfocal. Notes: Diagnostics: Ribs with chest, right - age indeterminate 2nd right anterior fracture, no in location of patients pain Therapeutics: None Impression: Chest contusion Plan: 1. Alternate motrin and tylenol as needed, use incentive spirometer as discussed 2. Follow up with primary care provider 3. Return to ED as needed as discussed Definitive disposition and diagnosis as appropriate pending reevaluation and review of above. - Related Data Allergies Allergy/AdvReac Type Severity Reaction Status Date / Time No Known Allergies Allergy Verified 10/04/17 09:29 Home Meds: Home Meds Linagliptin [Tradjenta] 5 mg PO DAILY 06/03/17 [History] Simvastatin [Zocor] 40 mg PO DAILY 06/03/17 [History] Losartan Potassium 25 mg PO DAILY 06/21/17 [History] Nebivolol [Bystolic] 20 mg PO DAILY 06/21/17 [History] Past Medical History Cardiovascular History: Reports: High Cholesterol, Hypertension Respiratory History: Reports: None Gastrointestinal History: Reports: Cholelithiasis, Other (See Below) Other Gastrointestinal History: duodenal ulcers Genitourinary History: Reports: None Musculoskeletal History: Reports: Fracture, Osteoarthritis Other Musculoskeletal History: hx fx foot and fx finger rt hand Neurological History: Reports: None Psychiatric History: Reports: None Endocrine/Metabolic History: Reports: Diabetes, Type II, Obesity/BMI 30+ Hematologic History: Reports: None Immunologic History: Reports: None Oncologic (Cancer) History: Reports: None Dermatologic History: Reports: None - Infectious Disease History Infectious Disease History: Reports: None - Past Surgical History Head Surgeries/Procedures: Reports: None Cardiovascular Surgical History: Reports: None GI Surgical History: Reports: EGD Musculoskeletal Surgical History: Reports: Other (See Below) Other Musculoskeletal Surgeries/Procedures:: hamstring surgery , surgical tx for fx finger on rt hand Oncologic Surgical History: Reports: None Social & Family History - Family History Family Medical History: Noncontributory Cardiac: Reports: Hypertension - Tobacco Use Smoking Status *Q: Never Smoker Second Hand Smoke Exposure: No - Caffeine Use Caffeine Use: Reports: Coffee, Soda Other Caffeine Use: "once in a while" - Recreational Drug Use Recreational Drug Use: No ED ROS GENERAL - Review of Systems Review Of Systems: ROS reveals no pertinent complaints other than HPI. ED EXAM, GENERAL - Physical Exam Exam: See Below (see dictation) Course - Vital Signs Last Recorded V/S: Last Vital Signs Temp 36.2 C 01/20/18 18:49 Pulse 87 01/20/18 18:49 Resp 18 01/20/18 18:49 BP 173/100 H 01/20/18 18:49 Pulse Ox 94 L 01/20/18 18:49 - Orders/Labs/Meds Orders: Active Orders 24 hr Category Date Time Status Ribs 2V w Chest Rt [CR] Stat Exams 01/20/18 19:03 Taken Departure - Departure Time of Disposition: 20:01 Disposition: Home, Self-Care 01 Condition: Good Clinical Impression: Rib contusion - Discharge Information Referrals: Denver Carrera MD [Primary Care Provider] - Forms: ED Department Discharge Additional Instructions: The following information is given to patients seen in the emergency department who are being discharged to home. This information is to outline your options for follow-up care. We provide all patients seen in our emergency department with a follow-up referral. The need for follow-up, as well as the timing and circumstances, are variable depending upon the specifics of your emergency department visit. If you don't have a primary care physician on staff, we will provide you with a referral. We always advise you to contact your personal physician following an emergency department visit to inform them of the circumstance of the visit and for follow-up with them and/or the need for any referrals to a consulting specialist. The emergency department will also refer you to a specialist when appropriate. This referral assures that you have the opportunity for follow-up care with a specialist. All of these measure are taken in an effort to provide you with optimal care, which includes your follow-up. Under all circumstances we always encourage you to contact your private physician who remains a resource for coordinating your care. When calling for follow-up care, please make the office aware that this follow-up is from your recent emergency room visit. If for any reason you are refused follow-up, please contact the [facility] Emergency Department at and asked to speak to the emergency department charge nurse. [facility] [address] [place] [id number] [address] 1. Alternate motrin and tylenol as needed, use incentive spirometer as discussed 2. Follow up with primary care provider 3. Return to ED as needed as discussed - My Orders Last 24 Hours: My Active Orders 01/20/18 19:03 Ribs 2V w Chest Rt [CR] Stat - Assessment/Plan Last 24 Hours: My Active Orders 01/20/18 19:03 Ribs 2V w Chest Rt [CR] Stat
--- NOTE | 2018-01-21 20:45 | CR ---
EXAM DATE: 01/20/18 PATIENT'S AGE: 62 Patient: RAMBO JIMENES Facility: [place], [place] Site . Site : 1955 Study: XRay Chest ribs w chest [id number]/23/2018 7:43:29 PM Ordering Physician: Doctor Santana Final Report: INDICATION: fell on right side TECHNIQUE: Chest 1 view and right-sided rib series COMPARISON: None FINDINGS: Cardiovascular and mediastinum: The heart is normal size. Tortuosity of the descending thoracic aorta. Mediastinum is within normal limits. Lungs and pleural space: Mild scarring/atelectasis along the left lung base. No sign of pleural effusion. No pneumothorax. Bones: Age indeterminate 2nd right anterior rib fracture. Degenerative changes. Other: Cholecystectomy changes. IMPRESSION: 1. No acute cardiopulmonary disease. 2. Age indeterminate 2nd right anterior rib fracture. Dictated by Michelet Christine MD @ 01/20/2018 7:53:09 PM Dictated by: Michelet Christine MD @ 01/20/2018 19:56:53 (Electronic Signature) Report Signed by Proxy. [facility] CENTERAgapito
== END 2018-01-20 20:16 | disposition home or self-care (01) ==
LOC: MW.ED 18:10
DX: S20.212A Contusion of left front wall of thorax, initial encounter (principal); I10 Essential (primary) hypertension; E78.00 Pure hypercholesterolemia, unspecified; E11.9 Type 2 diabetes mellitus without complications; Z79.899 Other long term (current) drug therapy; W01.198A Fall on same level from slipping, tripping and stumbling with subsequent striking against other object, initial encounter
CPT/HCPCS: 71101-26-RT; 71101-RT; 99283

== ENCOUNTER 2018-07-07 09:42 | Emergency (ER) | payer OTHER ==
--- NOTE | 2018-07-07 10:24 | EDM.PDOC ---
ED HPI GENERAL MEDICAL PROBLEM - General Chief Complaint: Upper Extremity Injury/Pain Stated Complaint: LEFT HAND FINGER INJURY Time Seen by Provider: 07/07/18 10:09 Source of Information: Reports: Patient History Limitations: Reports: No Limitations - History of Present Illness INITIAL COMMENTS - FREE TEXT/NARRATIVE: HISTORY AND PHYSICAL: History of present illness: Patient is a 63-year-old male who presents to the emergency room today with a crush injury to his left pinky. He states he got his finger crushed in the door of the bus about an hour ago. He states he is up-to-date on his tetanus vaccine. He denies any pain at this time. He states that when it happened he had immediate pain but now he feels numb. Patient denies any other prior hand injury or trauma. Patient does have some nausea. He denies fever, chills, vomiting, all other GI or symptoms.Patient does have a history of hypertension. He states he just took his hypertension medications not long before arrival to the ED. Review of systems: As per history of present illness and below otherwise all systems reviewed and negative. Past medical history: As per history of present illness and as reviewed below otherwise noncontributory. Surgical history: As per history of present illness and as reviewed below otherwise noncontributory. Social history: See social history for further information Family history: As per history of present illness and as reviewed below otherwise noncontributory. Physical exam: General: Patient is alert, orientated, and in no acute distress. He is sitting comfortably on exam table. HEENT: Atraumatic, normocephalic, pupils equal and reactive bilaterally, negative for conjunctival pallor or scleral icterus, mucous membranes moist, TMs normal bilaterally, throat clear, neck supple, nontender, trachea midline. No drooling or trismus noted. No meningeal signs. No hot potato voice noted. Lungs: Clear to auscultation, breath sounds equal bilaterally, chest nontender. Heart: S1S2, regular rate and rhythm without overt murmur Abdomen: Soft, nondistended, nontender. Negative for masses or hepatosplenomegaly. Negative for costovertebral tenderness. Pelvis: Stable nontender. Genitourinary: Deferred. Rectal: Deferred. Skin: See extremities. Intact, warm, dry. No lesions or rashes noted. Extremities: There is a 2-3 cm laceration of the left distal volar aspect of the pinky, unable to visualize bone or tendon underneath. Otherwise, moves all extremities per self. Neurovascular unremarkable. Neuro: Patient is able to move left pinky without difficulty. Awake, alert, oriented. Cranial nerves II through XII unremarkable. Cerebellum unremarkable. Motor and sensory unremarkable throughout. Exam nonfocal. Notes: Since patient had a crush injury, will get imaging to make sure there is non- underneath fracture. Pain medication was offered to patient for discomfort but he declines at this time. Has no other injury or concerns related to today's visit. Imaging shows an open minimally displaced fracture through the distal fifth phalanx with an overlying soft tissue laceration and swelling in osseous structures and joint spaces appear preserved mild subchondral cystic change noted within the third MCP joint. Did anesthetize the area following cleansed with iodine/ Betadine solution with 1% lidocaine plain. Usual and customary procedures were taken for suture placement. Patient did tolerate the procedure well. Did speak with Dr. Calles, the hand specialist/surgeon, who will follow-up outpatient with him. Sterile dressing was applied. Patient was given 1 g of Ancef here in the ER and will be sent home with a prescription for antibiotics. Patient was offered pain medication for home but he declines at this time and will just use Tylenol a prescription for Bacliff was sent if patient decides to pick these up. Diagnostics: 5th digit xray Therapeutics: Wound care, sutures, Ancef IM, dressing Prescription: Bacliff (#30), Zofran, Bactrim DS Impression: 1. Open fracture of distal fifth phalanx 2. Soft tissue laceration Plan: 1. Take antibiotics / medications as prescribed. You can use Zofran for nausea. 2. Alternate Tylenol and Ibuprofen as needed for pain. You can use Bacliff as needed for moderate to severe pain. Caution as this medication can cause drowsiness so careful with activities outside of the house or operating a vehicle / machinery. 3. Follow up with Dr. Calles who is a hand specialist for definitive treatment. Would like you re-evaluated by her in the next 1-2 days. 4. Limit use of the finger until follow up with Dr. Calles. Can use ice as needed for swelling. 5. Follow up with your primary care provider for high blood pressure in the next 1-2 days. 6. Return to the ED as needed and as discussed. Definitive disposition and diagnosis as appropriate pending reevaluation and review of above. Right Finger-Little Pain Score (Numeric/FACES): 2 - Related Data Allergies Allergy/AdvReac Type Severity Reaction Status Date / Time No Known Allergies Allergy Verified 10/04/17 09:29 Home Meds: Home Meds Linagliptin [Tradjenta] 5 mg PO DAILY 06/03/17 [History] Simvastatin [Zocor] 40 mg PO DAILY 06/03/17 [History] Losartan Potassium 25 mg PO DAILY 06/21/17 [History] Nebivolol [Bystolic] 20 mg PO DAILY 06/21/17 [History] Acetaminophen/HYDROcodone [Bacliff 325-5 MG] 1 dose PO Q4H #30 tablet 07/07/18 [Rx ] Ondansetron [Zofran ODT] 4 mg PO Q6H PRN #10 tab.dis 07/07/18 [Rx] Sulfamethoxazole/Trimethoprim [Bactrim Ds Tablet] 1 each PO BID 10 Days #20 tablet 07/07/18 [Rx] Past Medical History Cardiovascular History: Reports: High Cholesterol, Hypertension Respiratory History: Reports: None Gastrointestinal History: Reports: Cholelithiasis, Other (See Below) Other Gastrointestinal History: duodenal ulcers Genitourinary History: Reports: None Musculoskeletal History: Reports: Fracture, Osteoarthritis Other Musculoskeletal History: hx fx foot and fx finger rt hand Neurological History: Reports: None Psychiatric History: Reports: None Endocrine/Metabolic History: Reports: Diabetes, Type II, Obesity/BMI 30+ Hematologic History: Reports: None Immunologic History: Reports: None Oncologic (Cancer) History: Reports: None Dermatologic History: Reports: None - Infectious Disease History Infectious Disease History: Reports: None - Past Surgical History Head Surgeries/Procedures: Reports: None Cardiovascular Surgical History: Reports: None GI Surgical History: Reports: Cholecystectomy, EGD Musculoskeletal Surgical History: Reports: Other (See Below) Other Musculoskeletal Surgeries/Procedures:: hamstring surgery , surgical tx for fx finger on rt hand Oncologic Surgical History: Reports: None Social & Family History - Family History Family Medical History: Noncontributory Cardiac: Reports: Hypertension - Tobacco Use Smoking Status *Q: Never Smoker - Caffeine Use Caffeine Use: Reports: Coffee Other Caffeine Use: "once in a while" - Recreational Drug Use Recreational Drug Use: No Review of Systems - Review of Systems Review Of Systems: ROS reveals no pertinent complaints other than HPI. ED EXAM, GENERAL - Physical Exam Exam: See Below (see dictation) ED TRAUMA EXTREMITY PROCEDURES - Laceration/Wound Repair Left Distal Digit - 5th (Baby) Lac/Wound Length In cm: 3 Appearance: Superficial, Irregular, Mildly Contaminated Distal NVT: Neuro & Vascular Intact, No Tendon Injury Anesthetic Type: Local Local Anesthesia - Lidocaine (Xylocaine): 1% Plain Local Anesthetic Volume: 4cc Skin Prep: Chlorhexidine (Hibiciens), Providone-Iodine (Betadine) Exploration/Debridement/Repair: Wound Explored Suture Size: other (5-0) # of Sutures: 6 Suture Type: Nylon, Interrupted Sterile Dressing Applied: Nurse Tetanus Status Addressed: Yes Complications: No Course - Vital Signs Last Recorded V/S: Last Vital Signs Temp 95.7 F 07/07/18 09:56 Pulse 60 07/07/18 11:49 Resp 15 07/07/18 11:49 BP 147/80 H 07/07/18 11:49 Pulse Ox 95 07/07/18 11:49 - Orders/Labs/Meds Orders: Active Orders 24 hr Category Date Time Status Ondansetron [Zofran ODT] Med 07/07/18 11:01 Active 8 mg PO ONETIME PRN Medication Orders Ondansetron HCl (Zofran Odt) 8 mg PO ONETIME PRN PRN Reason: Nausea/Vomiting Meds: Medications Generic Name Dose Route Start Last Admin Trade Name Freq PRN Reason Stop Dose Admin Ondansetron HCl 8 mg 07/07/18 11:01 Zofran Odt PO ONETIME PRN Nausea/Vomiting Discontinued Medications Generic Name Dose Route Start Last Admin Trade Name Freq PRN Reason Stop Dose Admin Cefazolin Sodium 1 gm 07/07/18 10:59 07/07/18 11:38 Ancef IM 07/07/18 11:00 1 gm ONETIME ONE Administration Lidocaine HCl 5 ml 07/07/18 10:01 07/07/18 10:04 Xylocaine-Mpf 1% INJECT 07/07/18 10:02 5 ml ONETIME ONE Administration Departure - Departure Time of Disposition: 11:51 Disposition: Home, Self-Care 01 Clinical Impression: Laceration Phalanx, distal fracture of finger Qualifiers: Encounter type: initial encounter Finger: little finger Fracture type: open Fracture alignment: displaced Laterality: left Qualified Code(s): S62.637B - Displaced fracture of distal phalanx of left little finger, initial encounter for open fracture - Discharge Information Prescriptions: Acetaminophen/HYDROcodone [Bacliff 325-5 MG] 1 dose PO Q4H #30 tablet Ondansetron [Zofran ODT] 4 mg PO Q6H PRN #10 tab.dis PRN Reason: Nausea Sulfamethoxazole/Trimethoprim [Bactrim Ds Tablet] 1 each PO BID 10 Days #20 tablet Instructions: Finger Fracture, [id number] Referrals: Denver Carrera MD [Primary Care Provider] - Forms: ED Department Discharge Additional Instructions: The following information is given to patients seen in the emergency department who are being discharged to home. This information is to outline your options for follow-up care. We provide all patients seen in our emergency department with a follow-up referral. The need for follow-up, as well as the timing and circumstances, are variable depending upon the specifics of your emergency department visit. If you don't have a primary care physician on staff, we will provide you with a referral. We always advise you to contact your personal physician following an emergency department visit to inform them of the circumstance of the visit and for follow-up with them and/or the need for any referrals to a consulting specialist. The emergency department will also refer you to a specialist when appropriate. This referral assures that you have the opportunity for follow-up care with a specialist. All of these measure are taken in an effort to provide you with optimal care, which includes your follow-up. Under all circumstances we always encourage you to contact your private physician who remains a resource for coordinating your care. When calling for follow-up care, please make the office aware that this follow-up is from your recent emergency room visit. If for any reason you are refused follow-up, please contact the [facility] Emergency Department at and asked to speak to the emergency department charge nurse. [facility] [address] [place] [address] [id number] [address] [place] [address] [facility] - Plastic Surgery Professional Building [address] [place] [address], [address] [place] [address] 1. Take antibiotics / medications as prescribed. You can use Zofran for nausea. 2. Alternate Tylenol and Ibuprofen as needed for pain. You can use Bacliff as needed for moderate to severe pain. Caution as this medicication can cause drowsiness so careful with activities outside of the house or operating a vehicle / machinery. 3. Follow up with Dr. Calles who is a hand specialist for definitive treatment. 4. Limit use of the finger until follow up with Dr. Calles. Can use ice as needed for swelling. 5. Follow up with your primary care provider for high blood pressure. 6. Return to the ED as needed and as discussed. - My Orders Last 24 Hours: My Active Orders 07/07/18 11:01 Ondansetron [Zofran ODT] 8 mg PO ONETIME PRN - Assessment/Plan Last 24 Hours: My Active Orders 07/07/18 11:01 Ondansetron [Zofran ODT] 8 mg PO ONETIME PRN
--- NOTE | 2018-07-07 10:55 | CR ---
EXAMINATION: Left hand, fifth digit HISTORY: Crush injury COMPARISON: None TECHNIQUE: 3 views FINDINGS/IMPRESSION: There is likely an open minimally displaced fracture through the distal fifth phalanx with an overlying soft tissue laceration and swelling. The remaining osseous structures and joint spaces appear preserved. Mild subchondral cystic change noted within the third MCP joint.
[2018-07-07] MEDS ORDERED: ceFAZolin 1 GM Vial IM ONE (10:59)
[2018-07-07] MEDS ORDERED: Ondansetron 4 MG Tab.DIS PO PRN (11:01)
== END 2018-07-07 12:03 | disposition home or self-care (01) ==
LOC: MW.ED 09:42
DX: S62.637B Displaced fracture of distal phalanx of left little finger, initial encounter for open fracture (principal); I10 Essential (primary) hypertension; E78.00 Pure hypercholesterolemia, unspecified; Z79.899 Other long term (current) drug therapy; W23.0XXA Caught, crushed, jammed, or pinched between moving objects, initial encounter
CPT/HCPCS: 12002; 73140; 96372; 99283; J0690

== ENCOUNTER 2019-02-13 14:34 | Emergency (ER) | payer OTHER ==
--- NOTE | 2019-02-13 15:00 | EDM.PDOC ---
ED HPI GENERAL MEDICAL PROBLEM - General Chief Complaint: Lower Extremity Injury/Pain Stated Complaint: LEFT SWOLLEN CALF Time Seen by Provider: 02/13/19 14:36 Source of Information: Reports: Patient History Limitations: Reports: No Limitations - History of Present Illness INITIAL COMMENTS - FREE TEXT/NARRATIVE: HISTORY AND PHYSICAL: History of present illness: Patient is a 63-year-old male who presents to the ED today with concern of left calf redness and swelling 4 days. Patient denies any direct trauma or injury to the calf. Patient states he has a history of hypertension but denies any other health history. Patient states other than the swelling and redness in his left calf he has not noticed any other symptoms. Patient denies any history of blood clots are in the shortness of breath, hemoptysis, or pleuritic chest pain. Patient has a history of T2DM. Patient denies fever, chills, chest pain, shortness of breath, or cough. Denies headache, neck stiff ness, change in vision, syncope, or near syncope. Denies nausea, vomiting, abdominal pain, diarrhea, constipation, or dysuria. Has not noted any blood in urine or stool. Patient has been eating and drinking appropriately. Review of systems: As per history of present illness and below otherwise all systems reviewed and negative. Past medical history: As per history of present illness and as reviewed below otherwise noncontributory. Surgical history: As per history of present illness and as reviewed below otherwise noncontributory. Social history: See social history for further information Family history: As per history of present illness and as reviewed below otherwise noncontributory. Physical exam: General: Patient is alert, oriented, and in no acute distress. Patient sitting comfortably on exam table. HEENT: Atraumatic, normocephalic, pupils equal and reactive bilaterally, negative for conjunctival pallor or scleral icterus, mucous membranes moist, TMs normal bilaterally, throat clear, neck supple, nontender, trachea midline. No drooling or trismus noted. No meningeal signs. No hot potato voice noted. Lungs: Clear to auscultation, breath sounds equal bilaterally, chest nontender. Heart: S1S2, regular rate and rhythm without overt murmur Abdomen: Soft, nondistended, nontender. Negative for masses or hepatosplenomegaly. Negative for costovertebral tenderness. Pelvis: Stable nontender. Genitourinary: Deferred. Rectal: Deferred. Skin: Intact, warm, dry. No lesions or rashes noted. Extremities: Atraumatic, negative for cords or calf pain. Neurovascular unremarkable. The left calf is erythematous and edematous with 2+ nonpitting edema. Patient does have moderate discomfort with palpation of the left calf. Dorsalis pedis and posterior tibial pulses are grossly intact of the left lower extremity with capillary refill less than 2 seconds. Neuro: Awake, alert, oriented. Cranial nerves II through XII unremarkable. Cerebellum unremarkable. Motor and sensory unremarkable throughout. Exam nonfocal. Notes: Discussed lab results with patient and he states that his kidney functions have been elevated in the past and that he follows along with Dr. Carrera for this. Discussed the importance of follow-up with primary care and patient put on expedited follow up list. Voices understanding and is agreeable to plan of care. Denies any further questions or concerns at this time. Diagnostics: CBC, CMP, UA, PT/INR, PTT, lower extremity Doppler ultrasound, tib/fib XR Therapeutics: Rocephin Prescription: Keflex Impression: Lower extremity cellulitis, left h/o Type 2 diabetes Transaminitis Elevated renal function tests Plan: 1. Take medication as prescribed. You can alternate ibuprofen and Tylenol as directed for pain and discomfort. 2. Follow-up with your primary care provider as discussed. Return to the ED as needed and as discussed. Definitive disposition and diagnosis as appropriate pending reevaluation and review of above. Left Calf Pain Score (Numeric/FACES): 7 - Related Data Allergies Allergy/AdvReac Type Severity Reaction Status Date / Time No Known Allergies Allergy Verified 02/13/19 14:47 Home Meds: Home Meds Linagliptin [Tradjenta] 5 mg PO DAILY 06/03/17 [History] Simvastatin [Zocor] 40 mg PO DAILY 06/03/17 [History] Losartan Potassium 25 mg PO DAILY 06/21/17 [History] Nebivolol [Bystolic] 20 mg PO DAILY 06/21/17 [History] Acetaminophen/HYDROcodone [[place] 325-5 MG] 1 dose PO Q4H #30 tablet 07/07/18 [Rx ] Ondansetron [Zofran ODT] 4 mg PO Q6H PRN #10 tab.dis 07/07/18 [Rx] Sulfamethoxazole/Trimethoprim [Bactrim Ds Tablet] 1 each PO BID 10 Days #20 tablet 07/07/18 [Rx] cephALEXin [Keflex] 500 mg PO Q8H 10 Days #30 cap 02/13/19 [Rx] Past Medical History Cardiovascular History: Reports: High Cholesterol, Hypertension Respiratory History: Reports: None Gastrointestinal History: Reports: Cholelithiasis, Other (See Below) Other Gastrointestinal History: duodenal ulcers Genitourinary History: Reports: None Musculoskeletal History: Reports: Fracture, Osteoarthritis Other Musculoskeletal History: hx fx foot and fx finger rt hand Neurological History: Reports: None Psychiatric History: Reports: None Endocrine/Metabolic History: Reports: Diabetes, Type II, Obesity/BMI 30+ Hematologic History: Reports: None Immunologic History: Reports: None Oncologic (Cancer) History: Reports: None Dermatologic History: Reports: None - Infectious Disease History Infectious Disease History: Reports: None - Past Surgical History Head Surgeries/Procedures: Reports: None Cardiovascular Surgical History: Reports: None GI Surgical History: Reports: Cholecystectomy, EGD Musculoskeletal Surgical History: Reports: Other (See Below) Other Musculoskeletal Surgeries/Procedures:: hamstring surgery , surgical tx for fx finger on rt hand Oncologic Surgical History: Reports: None Social & Family History - Family History Family Medical History: Noncontributory Cardiac: Reports: Hypertension - Tobacco Use Smoking Status *Q: Never Smoker - Caffeine Use Caffeine Use: Reports: Coffee Other Caffeine Use: "once in a while" Review of Systems - Review of Systems Review Of Systems: ROS reveals no pertinent complaints other than HPI. ED EXAM, GENERAL - Physical Exam Exam: See Below (See dictation) Course - Vital Signs Last Recorded V/S: Last Vital Signs Temp 37.0 C 02/13/19 14:47 Pulse 98 02/13/19 14:47 Resp 18 02/13/19 14:47 BP 134/83 02/13/19 14:47 Pulse Ox 98 02/13/19 14:47 - Orders/Labs/Meds Orders: Active Orders 24 hr Category Date Time Status UA RFX NEAL AND CULT IF INDIC [URIN] Stat Lab 02/13/19 16:50 Received Labs: Laboratory Tests 02/13/19 02/13/19 02/13/19 Range/Units 15:09 15:09 15:09 WBC 10.26 (4.0-11.0) K/uL RBC 4.40 L (4.50-5.90) M/uL Hgb 14.2 (13.0-17.0) g/dL Hct 41.9 (38.0-50.0) % MCV 95.2 (80.0-98.0) fL MCH 32.3 H (27.0-32.0) pg MCHC 33.9 (31.0-37.0) g/dL RDW Std Deviation 45.8 (28.0-62.0) fl RDW Coeff of [place] 13 (11.0-15.0) % Plt Count 270 (150-400) K/uL MPV 10.00 (7.40-12.00) fL Neut % (Auto) 75.5 (48.0-80.0) % Lymph % (Auto) 12.3 L (16.0-40.0) % [place] % (Auto) 10.5 (0.0-15.0) % Eos % (Auto) 1.2 (0.0-7.0) % Baso % (Auto) 0.5 (0.0-1.5) % Neut # (Auto) 7.8 H (1.4-5.7) K/uL Lymph # (Auto) 1.3 (0.6-2.4) K/uL [place] # (Auto) 1.1 H (0.0-0.8) K/uL Eos # (Auto) 0.1 (0.0-0.7) K/uL Baso # (Auto) 0.1 (0.0-0.1) K/uL Nucleated RBC % 0.0 /100WBC Nucleated RBCs # 0 K/uL INR 1.01 APTT 29.3 (18.6-31.3) SEC Sodium 134 L (136-148) mmol/L Potassium 3.8 (3.5-5.1) mmol/L Chloride 100 (98-107) mmol/L Carbon Dioxide 22.9 (21.0-32.0) mmol/L BUN 30 H (7.0-18.0) mg/dL Creatinine 2.2 H (0.8-1.3) mg/dL Est Cr Clr Drug Dosing 36.74 mL/min Estimated GFR (MDRD) 30.2 ml/min Glucose 308 H (74-106) mg/dL Hemoglobin A1c (4.5-6.2) % Calcium 9.5 (8.5-10.1) mg/dL Total Bilirubin 0.6 (0.2-1.0) mg/dL AST 48 H (15-37) IU/L ALT 81 H (14-63) IU/L Alkaline Phosphatase 83 (46-116) U/L Total Protein 7.6 (6.4-8.2) g/dL Albumin 3.1 L (3.4-5.0) g/dL Globulin 4.5 H (2.6-4.0) g/dL Albumin/Globulin Ratio 0.7 L (0.9-1.6) / Range/Units 15:09 WBC (4.0-11.0) K/uL RBC (4.50-5.90) M/uL Hgb (13.0-17.0) g/dL Hct (38.0-50.0) % MCV (80.0-98.0) fL MCH (27.0-32.0) pg MCHC (31.0-37.0) g/dL RDW Std Deviation (28.0-62.0) fl RDW Coeff of Dalton (11.0-15.0) % Plt Count (150-400) K/uL MPV (7.40-12.00) fL Neut % (Auto) (48.0-80.0) % Lymph % (Auto) (16.0-40.0) % [place] % (Auto) (0.0-15.0) % Eos % (Auto) (0.0-7.0) % Baso % (Auto) (0.0-1.5) % Neut # (Auto) (1.4-5.7) K/uL Lymph # (Auto) (0.6-2.4) K/uL [place] # (Auto) (0.0-0.8) K/uL Eos # (Auto) (0.0-0.7) K/uL Baso # (Auto) (0.0-0.1) K/uL Nucleated RBC % /100WBC Nucleated RBCs # K/uL INR APTT (18.6-31.3) SEC Sodium (136-148) mmol/L Potassium (3.5-5.1) mmol/L Chloride (98-107) mmol/L Carbon Dioxide (21.0-32.0) mmol/L BUN (7.0-18.0) mg/dL Creatinine (0.8-1.3) mg/dL Est Cr Clr Drug Dosing mL/min Estimated GFR (MDRD) ml/min Glucose (74-106) mg/dL Hemoglobin A1c 8.5 H (4.5-6.2) % Calcium (8.5-10.1) mg/dL Total Bilirubin (0.2-1.0) mg/dL AST (15-37) IU/L ALT (14-63) IU/L Alkaline Phosphatase (46-116) U/L Total Protein (6.4-8.2) g/dL Albumin (3.4-5.0) g/dL Globulin (2.6-4.0) g/dL Albumin/Globulin Ratio (0.9-1.6) Meds: Medications Discontinued Medications Generic Name Dose Route Start Last Admin Trade Name Heshamq PRN Reason Stop Dose Admin Ceftriaxone Sodium 1 gm 02/13/19 16:15 02/13/19 16:58 Rocephin IM 02/13/19 16:16 1 gm ONETIME ONE Administration Lidocaine HCl 2 ml 02/13/19 16:33 02/13/19 16:59 Xylocaine-Mpf 1% INJECT 02/13/19 16:34 2 ml ONETIME ONE Administration Departure - Departure Time of Disposition: 17:05 Disposition: Home, Self-Care 01 Clinical Impression: History of type 2 diabetes mellitus, Transaminitis, Abnormal renal function Cellulitis Qualifiers: Site of cellulitis: extremity Site of cellulitis of extremity: lower extremity Laterality: left Qualified Code(s): L03.116 - Cellulitis of left lower limb - Discharge Information Prescriptions: cephALEXin [Keflex] 500 mg PO Q8H 10 Days #30 cap Referrals: PCP,Unknown [Primary Care Provider] - Forms: ED Department Discharge Additional Instructions: The following information is given to patients seen in the emergency department who are being discharged to home. This information is to outline your options for follow-up care. We provide all patients seen in our emergency department with a follow-up referral. The need for follow-up, as well as the timing and circumstances, are variable depending upon the specifics of your emergency department visit. If you don't have a primary care physician on staff, we will provide you with a referral. We always advise you to contact your personal physician following an emergency department visit to inform them of the circumstance of the visit and for follow-up with them and/or the need for any referrals to a consulting specialist. The emergency department will also refer you to a specialist when appropriate. This referral assures that you have the opportunity for follow-up care with a specialist. All of these measure are taken in an effort to provide you with optimal care, which includes your follow-up. Under all circumstances we always encourage you to contact your private physician who remains a resource for coordinating your care. When calling for follow-up care, please make the office aware that this follow-up is from your recent emergency room visit. If for any reason you are refused follow-up, please contact the [facility] Emergency Department at and asked to speak to the emergency department charge nurse. [facility] [address] [place], [place] [id number] [place] [address] 1. Take medication as prescribed. You can alternate ibuprofen and Tylenol as directed for pain and discomfort. 2. Follow-up with your primary care provider as discussed. Return to the ED as needed and as discussed. - My Orders Last 24 Hours: My Active Orders 02/13/19 16:50 UA RFX NEAL AND CULT IF INDIC [URIN] Stat - Assessment/Plan Last 24 Hours: My Active Orders 02/13/19 16:50 UA RFX NEAL AND CULT IF INDIC [URIN] Stat
[2019-02-13 15:52] LABS: CARBON DIOXIDE,CO2 22.9 mmol/L (21.0-32.0); POTASSIUM,K 3.8 mmol/L (3.5-5.1)
--- NOTE | 2019-02-13 16:06 | US ---
Left lower extremity deep venous ultrasound: Duplex and color Doppler images were obtained of the left common femoral, superficial femoral, popliteal and posterior tibial veins. Lymph node noted within the right groin believed to be within normal limits. Normal phasic flow, augmentation and compression is seen. Subcutaneous edema is seen within the lower extremity. Impression: 1. Subcutaneous edema within the lower extremity. 2. No deep venous thrombosis is seen within the left lower extremity. Diagnostic code #2 MTDD
[2019-02-13] MEDS ORDERED: cefTRIAXone 1 GM Vial IM ONE (16:15)
[2019-02-13 16:29] LABS: HEMOGLOBIN A1C 8.5 % (4.5-6.2)
[2019-02-13] MEDS ORDERED: Lidocaine 1% PF 2 ML SDV INJECT ONE (16:33)
--- NOTE | 2019-02-13 16:58 | CR ---
Indication: Rule out gas. Technique: Two views of the left lower leg were obtained. Comparison: None Findings: Mild narrowing of the medial compartment is identified. Moderate severe narrowing of the lateral compartment is identified. Small plantar calcaneal spur is identified. No fracture subluxation is identified. No subcutaneous air is identified. Impression: No subcutaneous air. Dictated by Melisa Cervantes MD @ Feb 13 2019 4:56PM Signed by Dr. Melisa Cervantes @ Feb 13 2019 4:56PM
== END 2019-02-13 17:25 | disposition home or self-care (01) ==
LOC: MW.ED 14:34
DX: L03.116 Cellulitis of left lower limb (principal); R74.0 Nonspecific elevation of levels of transaminase and lactic acid dehydrogenase [LDH]; R94.4 Abnormal results of kidney function studies; E11.9 Type 2 diabetes mellitus without complications; I10 Essential (primary) hypertension; E78.00 Pure hypercholesterolemia, unspecified; M19.90 Unspecified osteoarthritis, unspecified site; E66.9 Obesity, unspecified; Z68.38 Body mass index [BMI] 38.0-38.9, adult; Z79.899 Other long term (current) drug therapy
CPT/HCPCS: 36415; 73590; 80053; 81001; 83036; 85025; 85610; 85730; 93971; 96372; 99284; J0696; J2001

== ENCOUNTER 2019-07-31 16:30 | Emergency (ER) | payer OTHER ==
--- NOTE | 2019-07-31 16:53 | EDM.PDOC ---
ED HPI GENERAL MEDICAL PROBLEM - General Chief Complaint: Back Pain or Injury Stated Complaint: RIB INJURY Time Seen by Provider: 07/31/19 16:33 Source of Information: Reports: Patient History Limitations: Reports: No Limitations - History of Present Illness INITIAL COMMENTS - FREE TEXT/NARRATIVE: HISTORY AND PHYSICAL: History of present illness: Patient is a 64-year-old male who presents to the ED today with concern of left- sided rib injury that occurred earlier this morning. 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 Patient states he caught his foot on the wheelchair device and leaned back into the seat of the bus with his left-sided ribs. Patient states since then he has had pain of the left-sided ribs. Patient states he did not fall and did not lose consciousness and states the mechanism was him leaning against the seat from fixing the bus panel and denies any dizziness. Denies any other symptoms or concerns. Patient denies fever, chills, chest pain, shortness of breath, or cough. Denies headache, neck stiff ness, change in vision, syncope, or near syncope. Denies nausea, vomiting, abdominal pain, diarrhea, constipation, or dysuria. Has not noted any blood in urine or stool. Patient has been eating and drinking appropriately. Review of systems: As per history of present illness and below otherwise all systems reviewed and negative. Past medical history: As per history of present illness and as reviewed below otherwise noncontributory. Surgical history: As per history of present illness and as reviewed below otherwise noncontributory. Social history: See social history for further information Family history: As per history of present illness and as reviewed below otherwise noncontributory. Physical exam: General: Patient is alert, oriented, and in no acute distress. Patient sitting comfortably on exam table. HEENT: Atraumatic, normocephalic, pupils equal and reactive bilaterally, negative for conjunctival pallor or scleral icterus, mucous membranes moist, TMs normal bilaterally, throat clear, neck supple, nontender, trachea midline. No drooling or trismus noted. No meningeal signs. No hot potato voice noted. Lungs: Clear to auscultation, breath sounds equal bilaterally, mild-moderate pain with palpation of posterior ribs #8-10. No crepitus noted. Heart: S1S2, regular rate and rhythm without overt murmur Abdomen: Soft, nondistended, nontender. Negative for masses or hepatosplenomegaly. Negative for costovertebral tenderness. Pelvis: Stable nontender. Genitourinary: Deferred. Rectal: Deferred. Skin: Intact, warm, dry. No lesions or rashes noted. Extremities: Atraumatic, negative for cords or calf pain. Neurovascular unremarkable. Neuro: Awake, alert, oriented. Cranial nerves II through XII unremarkable. Cerebellum unremarkable. Motor and sensory unremarkable throughout. Exam nonfocal. Notes: Discussed importance for follow-up with a primary care provider. Voices understanding and is agreeable to plan of care. Denies any further questions or concerns at this time. Diagnostics: Rib w chest XR, UA (labwork was offered but patient declines) Therapeutics: None Prescription: Diclofenac Impression: Left-sided rib injury Plan: 1. Rest, ice, elevate the affected area. You can apply ice 15 minutes on, 15 minutes off. 2. Tylenol as directed for pain management or discomfort. 3. Follow up with the primary care provider as discussed. Return to the ED as needed and as discussed. Definitive disposition and diagnosis as appropriate pending reevaluation and review of above. left flank Pain Score (Numeric/FACES): 7 - Related Data Allergies Allergy/AdvReac Type Severity Reaction Status Date / Time No Known Allergies Allergy Verified 07/31/19 16:44 Home Meds: Home Meds Linagliptin [Tradjenta] 5 mg PO DAILY 06/03/17 [History] Simvastatin [Zocor] 40 mg PO DAILY 06/03/17 [History] Losartan Potassium 25 mg PO DAILY 06/21/17 [History] Nebivolol [Bystolic] 20 mg PO DAILY 06/21/17 [History] Acetaminophen/HYDROcodone [[place] 325-5 MG] 1 dose PO Q4H #30 tablet 07/07/18 [Rx ] Ondansetron [Zofran ODT] 4 mg PO Q6H PRN #10 tab.dis 07/07/18 [Rx] Sulfamethoxazole/Trimethoprim [Bactrim Ds Tablet] 1 each PO BID 10 Days #20 tablet 07/07/18 [Rx] cephALEXin [Keflex] 500 mg PO Q8H 10 Days #30 cap 02/13/19 [Rx] Diclofenac Sodium [Voltaren] 75 mg PO BIDMEALS PRN #15 tab.cr 07/31/19 [Rx] Past Medical History Cardiovascular History: Reports: High Cholesterol, Hypertension Respiratory History: Reports: None Gastrointestinal History: Reports: Cholelithiasis, Other (See Below) Other Gastrointestinal History: duodenal ulcers Genitourinary History: Reports: None Musculoskeletal History: Reports: Fracture, Osteoarthritis Other Musculoskeletal History: hx fx foot and fx finger rt hand Neurological History: Reports: None Psychiatric History: Reports: None Endocrine/Metabolic History: Reports: Diabetes, Type II, Obesity/BMI 30+ Hematologic History: Reports: None Immunologic History: Reports: None Oncologic (Cancer) History: Reports: None Dermatologic History: Reports: None - Infectious Disease History Infectious Disease History: Reports: None - Past Surgical History Head Surgeries/Procedures: Reports: None Cardiovascular Surgical History: Reports: None GI Surgical History: Reports: Cholecystectomy, EGD Musculoskeletal Surgical History: Reports: Other (See Below) Other Musculoskeletal Surgeries/Procedures:: hamstring surgery , surgical tx for fx finger on rt hand Oncologic Surgical History: Reports: None Social & Family History - Family History Family Medical History: Noncontributory Cardiac: Reports: Hypertension - Caffeine Use Caffeine Use: Reports: Coffee Other Caffeine Use: "once in a while" ED ROS GENERAL - Review of Systems Review Of Systems: Comprehensive ROS is negative, except as noted in HPI. ED EXAM, GENERAL - Physical Exam Exam: See Below (see dictation) Course - Vital Signs Last Recorded V/S: Last Vital Signs Temp 97.8 F 07/31/19 16:44 Pulse 79 07/31/19 16:44 Resp 18 07/31/19 16:44 BP 152/83 H 07/31/19 16:44 Pulse Ox 95 07/31/19 16:44 - Orders/Labs/Meds Orders: Active Orders 24 hr Category Date Time Status Glucose [Blood Glucose Check, Bedside] [RC] ONETIME Care 07/31/19 17:42 Active Labs: Laboratory Tests 07/31/19 Range/Units 16:55 Urine Color YELLOW Urine Appearance CLEAR Urine pH 5.5 (5.0-8.0) Ur Specific [place] 1.025 (1.001-1.035) Urine Protein 30 H (NEGATIVE) mg/dL Urine Glucose (UA) 100 H (NEGATIVE) mg/dL Urine Ketones NEGATIVE (NEGATIVE) mg/dL Urine Occult Blood TRACE-INTACT H (NEGATIVE) Urine Nitrite NEGATIVE (NEGATIVE) Urine Bilirubin NEGATIVE (NEGATIVE) Urine Urobilinogen 0.2 (<2.0) EU/dL Ur Leukocyte Esterase NEGATIVE (NEGATIVE) U Hyaline Cast (Auto) 0-2 (0-2/LPF) Urine RBC 0-2 (0-2/HPF) Urine WBC 0-2 (0-5/HPF) Ur Epithelial Cells OCCASIONAL (NONE-FEW) Urine Bacteria RARE (NEGATIVE) Urine Mucus LIGHT (NONE-MOD) Departure - Departure Time of Disposition: 17:46 Disposition: Home, Self-Care 01 Clinical Impression: Rib injury - Discharge Information Prescriptions: Diclofenac Sodium [Voltaren] 75 mg PO BIDMEALS PRN #15 tab.cr PRN Reason: Pain Instructions: Chest Contusion, Adult, [id number] Referrals: Denver Carrera MD [Primary Care Provider] - Forms: ED Department Discharge Additional Instructions: The following information is given to patients seen in the emergency department who are being discharged to home. This information is to outline your options for follow-up care. We provide all patients seen in our emergency department with a follow-up referral. The need for follow-up, as well as the timing and circumstances, are variable depending upon the specifics of your emergency department visit. If you don't have a primary care physician on staff, we will provide you with a referral. We always advise you to contact your personal physician following an emergency department visit to inform them of the circumstance of the visit and for follow-up with them and/or the need for any referrals to a consulting specialist. The emergency department will also refer you to a specialist when appropriate. This referral assures that you have the opportunity for follow-up care with a specialist. All of these measure are taken in an effort to provide you with optimal care, which includes your follow-up. Under all circumstances we always encourage you to contact your private physician who remains a resource for coordinating your care. When calling for follow-up care, please make the office aware that this follow-up is from your recent emergency room visit. If for any reason you are refused follow-up, please contact the [facility] Emergency Department at and asked to speak to the emergency department charge nurse. [facility] Primary Care [address] [place] [id number] [facility] [address] [place] [address] 1. Rest, ice, elevate the affected area. You can apply ice 15 minutes on, 15 minutes off. 2. Tylenol as directed for pain management or discomfort. Take medication as prescribed. 3. Follow up with the primary care provider as discussed. Return to the ED as needed and as discussed. Sepsis Event Note - Focused Exam Vital Signs: Vital Signs Temp Pulse Resp BP Pulse Ox 07/31/19 16:44 97.8 F 79 18 152/83 H 95 Date Exam was Performed: 07/31/19 Time Exam was Performed: 17:46 - My Orders Last 24 Hours: My Active Orders 07/31/19 17:42 Glucose [Blood Glucose Check, Bedside] [RC] ONETIME - Assessment/Plan Last 24 Hours: My Active Orders 07/31/19 17:42 Glucose [Blood Glucose Check, Bedside] [RC] ONETIME
--- NOTE | 2019-07-31 17:42 | CR ---
Chest and left ribs: Frontal view of the chest was obtained as well as 4 things of the left ribs. Comparison: Prior chest and left rib exam of 05/30/18. Heart size is normal. Tortuous thoracic aorta is seen. Minimal atelectasis or scarring is noted within the left lung base. Mild degenerative endplate spurring is partially visualized within the spine. Mild degenerative change is noted within the acromioclavicular joint and glenohumeral joint of the left shoulder. No discrete left-sided rib abnormality is appreciated. Impression: 1. Findings as noted above. 2. Nothing acute is appreciated. Diagnostic code #2 This report was dictated in [place] Standard Time
== END 2019-07-31 18:05 | disposition home or self-care (01) ==
LOC: MW.ED 16:30
DX: S29.9XXA Unspecified injury of thorax, initial encounter (principal); I10 Essential (primary) hypertension; E78.00 Pure hypercholesterolemia, unspecified; E11.9 Type 2 diabetes mellitus without complications; E66.9 Obesity, unspecified; Z79.899 Other long term (current) drug therapy; W01.0XXA Fall on same level from slipping, tripping and stumbling without subsequent striking against object, initial encounter
CPT/HCPCS: 71101-26-LT; 71101-LT; 81001; 99283; 99283-25

== ENCOUNTER 2020-07-24 06:30 | Observation (INO) | payer OTHER, MEDICARE ==
[~2020-07-24 06:30] MED LIST changes: +Famotidine 20 MG/2 ML SDV IVPUSH SCH; -Lactated Ringers 1,000 ML IV SCH; +Ropivacaine 49.25 ML, Ketorolac 30 MG, EPINEPHrine 0.5 MG, cloNIDine 80 MCG in Sodium C... INJECT SCH; +Scopolamine 1.5 MG Transdermal Patch TRDERM SCH; -Sodium Chloride 0.9% 10 ML Syringe FLUSH PRN; -Sodium Chloride 0.9% 2.5 ML Syringe FLUSH PRN; -ceFAZolin 2 GM in Premix Bag 1 BAG IV ONE
[2020-07-24] MEDS ORDERED: Lidocaine 2% 5 ML SDV ONE (06:52)
[2020-07-24] MEDS ORDERED: Ondansetron 4 MG/2 ML SDV ONE (06:52)
[2020-07-24] MEDS ORDERED: Propofol 200 MG/20 ML SDV ONE ×2 (06:53→09:46)
[2020-07-24] MEDS ORDERED: Sodium Chloride 0.9% 20 ML ONE (06:54)
[2020-07-24] MEDS ORDERED: ceFAZolin 1 GM Vial ONE ×2 (06:54→08:28)
[2020-07-24] MEDS ORDERED: Midazolam 1 MG/ML 2 ML SDV ONE (07:08)
[2020-07-24] MEDS: Lactated Ringers 1,000 ML IV SCH ×2 (07:13→11:48)
[2020-07-24] MEDS ORDERED: Bupivacaine 0.25% 10 ML SDV ONE (07:39)
[2020-07-24] MEDS: Aspirin 81 MG Tab.Chew PO ONE ×2 (07:53→08:02)
--- NOTE | 2020-07-24 07:57 | PCM.PREANE ---
Preanesthetic Assessment - Anesthesia/Transfusion/Family Hx Anesthesia History: Prior Anesthesia Without Reaction Other Type of Anesthesia Reaction Comment: "spinal did not work with my hamstring surgery" Family History of Anesthesia Reaction: No Transfusion History: No Prior Transfusion(s) Intubation History: Unknown - Review of Systems General: No Symptoms Pulmonary: No Symptoms Cardiovascular: No Symptoms Gastrointestinal: No Symptoms Neurological: No Symptoms Other: Reports: None - Physical Assessment NPO Status Date: 07/23/20 Vital Signs: Last Vital Signs Temp 98.1 F 07/24/20 06:48 Pulse 84 07/24/20 06:48 Resp 16 07/24/20 06:48 BP 153/87 H 07/24/20 06:48 Pulse Ox 92 L 07/24/20 06:48 Height: 6 ft Weight: 113.398 kg ASA Class: 2 Mental Status: Alert & Oriented x3 Airway Class: Mallampati = 2 Dentition: Reports: Missing Tooth/Teeth ROM/Head Extension: Full Lungs: Clear to Auscultation, Normal Respiratory Effort Cardiovascular: Regular Rate, Regular Rhythm - Lab Values: Laboratory Last Values Hgb 16.1 g/dL (13.0-17.0) 07/24/20 07:03 Hct 48.6 % (38.0-50.0) 07/24/20 07:03 SARS-CoV-2 RNA ([facility]) NEGATIVE (NEGATIVE) 07/24/20 06:47 - Allergies Allergies/Adverse Reactions: Allergies Allergy/AdvReac Type Severity Reaction Status Date / Time No Known Allergies Allergy Verified 07/24/20 07:38 - Anesthesia Plan Pre-Op Medication Ordered: Anxiolytic - Acknowledgements Anesthesia Type Planned: Spinal Pt an Appropriate Candidate for the Planned Anesthesia: Yes Alternatives and Risks of Anesthesia Discussed w Pt/Guardian: Yes Pt/Guardian Understands and Agrees with Anesthesia Plan: Yes Additional Comments: pmh: htn, dm2 plan spinal with iv sedation, fem nerve block at dr cavazos request for post op pain management PreAnesthesia Questionnaire HEENT History: Reports: Other (See Below) Other HEENT History: reading glasses Cardiovascular History: Reports: High Cholesterol, Hypertension Respiratory History: Reports: None Gastrointestinal History: Reports: Cholelithiasis, Other (See Below) Other Gastrointestinal History: duodenal ulcers Genitourinary History: Reports: None Musculoskeletal History: Reports: Fracture, Osteoarthritis Other Musculoskeletal History: hx fx foot and fx finger rt hand Neurological History: Reports: None Psychiatric History: Reports: None Endocrine/Metabolic History: Reports: Diabetes, Type II, Obesity/BMI 30+ Hematologic History: Reports: None Immunologic History: Reports: None Oncologic (Cancer) History: Reports: None Dermatologic History: Reports: None - Infectious Disease History Infectious Disease History: Reports: None - Past Surgical History Head Surgeries/Procedures: Reports: None HEENT Surgical History: Reports: Cataract Surgery Cardiovascular Surgical History: Reports: None Respiratory Surgical History: Reports: None GI Surgical History: Reports: Cholecystectomy, EGD Male Surgical History: Reports: None Endocrine Surgical History: Reports: None Neurological Surgical History: Reports: None Musculoskeletal Surgical History: Reports: Other (See Below) Other Musculoskeletal Surgeries/Procedures:: hamstring surgery , surgical tx for fx finger on rt hand Oncologic Surgical History: Reports: None - SUBSTANCE USE Tobacco Use Status *Q: Never Tobacco User - HOME MEDS Home Medications: Home Meds Linagliptin [Tradjenta] 5 mg PO DAILY 06/03/17 [History] Simvastatin [Zocor] 40 mg PO DAILY 06/03/17 [History] Losartan Potassium 50 mg PO DAILY 06/21/17 [History] Glimepiride 1 mg PO DAILY 07/18/20 [History] amLODIPine Besylate [Amlodipine Besylate] 10 mg PO DAILY 07/18/20 [History] - CURRENT (IN HOUSE) MEDS Current Meds: Current Medications Famotidine (Pepcid) 40 mg IVPUSH ONARRIVE [facility] Last Admin: 07/24/20 07:16 Dose: 40 mg Documented by: Tranexamic Acid 1,000 mg/ (Sodium Chloride) 110 mls @ 600 mls/hr IV ASDIRECTED ONE Stop: 07/24/20 08:10 Ropivacaine 49.25 ml/Ketorolac Tromethamine 30 mg/Epinephrine HCl 0.5 mg/Clonidine HCl 80 mcg/ Sodium Chloride 75 mls @ 50 mls/sec INJECT ASDIRECTED [facility] Cefazolin Sodium/Dextrose 2 gm (/ Premix) 50 mls @ 100 mls/hr IV ONCALL [facility] Lactated Ringer's (Ringers, Lactated) 1,000 mls @ 100 mls/hr IV ASDIRECTED [facility] Last Admin: 07/24/20 07:13 Dose: 100 mls/hr Documented by: Scopolamine (Transderm-Scop) 1.5 mg TRDERM ONARRIVE [facility] Last Admin: 07/24/20 07:14 Dose: 1.5 mg Documented by: Discontinued Medications Bupivacaine HCl (Sensorcaine-Mpf 0.25%) Confirm Administered Dose 30 ml .ROUTE .STK-MED ONE Stop: 07/24/20 07:40 Cefazolin Sodium (Ancef) Confirm Administered Dose 2 gm .ROUTE .STK-MED ONE Stop: 07/24/20 06:55 Sodium Chloride (Normal Saline) Confirm Administered Dose 20 mls @ as directed .ROUTE .STK-MED ONE Stop: 07/24/20 06:55 Lidocaine (Xylocaine-Mpf 2%) Confirm Administered Dose 5 ml .ROUTE .STK-MED ONE Stop: 07/24/20 06:53 Midazolam HCl (Versed 1 Mg/Ml) Confirm Administered Dose 2 mg .ROUTE .STK-MED ONE Stop: 07/24/20 07:09 Ondansetron HCl (Zofran) Confirm Administered Dose 4 mg .ROUTE .STK-MED ONE Stop: 07/24/20 06:53 Propofol (Diprivan 20 Ml) Confirm Administered Dose 400 mg .ROUTE .STK-MED ONE Stop: 07/24/20 06:54
[2020-07-24] MEDS ORDERED: Tranexamic Acid 1,000 MG in Sodium Chloride 0.9% 100 ML IV ONE (08:00)
[2020-07-24] MEDS ORDERED: ceFAZolin 2 GM in Premix Bag 1 BAG IV SCH (08:00)
--- NOTE | 2020-07-24 08:11 | PCM.SN.2 ---
- Free Text/Narrative Note: procedure note. femoral nerve block. pt identified, site reidentified, skin antisepsis with alcohol. skin wheel with lidocaine. 2 inch stimux needle advanced until fem nerve motor stimulation. estinguished about 0.24 ma, 20 ml of 0.25% bupivicaine administered in 5 ml increments. no comps.
[2020-07-24] MEDS ORDERED: ePHEDrine 50 MG/ML SDV ONE (08:42)
[2020-07-24] MEDS ORDERED: fentaNYL 100 MCG/2 ML SDV ONE (09:37)
[2020-07-24] MEDS ORDERED: Glycopyrrolate 0.2 MG/ML SDV ONE (10:10)
[2020-07-24] MEDS ORDERED: Ondansetron 4 MG/2 ML SDV IVPUSH PRN (10:42)
[2020-07-24] MEDS ORDERED: traMADol 50 MG Tab PO PRN (10:42)
[2020-07-24] MEDS ORDERED: Aluminum Hydroxide/Magnesium Hydroxide/Simethicone Susp 30 ML Cup PO PRN (10:42)
[2020-07-24] MEDS ORDERED: Morphine 2 MG/ML SYRINGE IVPUSH PRN (10:42)
[2020-07-24] MEDS ORDERED: Sodium Chloride 0.9% 10 ML Syringe FLUSH PRN (10:42)
[2020-07-24] MEDS ORDERED: Bisacodyl 10 MG Supp RECTAL PRN (10:42)
[2020-07-24] MEDS ORDERED: Docusate Sodium 100 MG Cap PO PRN (10:42)
[2020-07-24] MEDS ORDERED: diphenhydrAMINE 25 MG Cap PO PRN (10:42)
--- NOTE | 2020-07-24 10:43 | PCM.OPNOTE ---
- General Post-Op/Procedure Note Date of Surgery/Procedure: 07/24/20 Operative Procedure(s): Right total knee replacement Findings: Right knee medial compartment grade 4 arthritis on femur and tibia Lateral compartment grade 4 changes on femur and grade 4 changes with bony erosion on tibia Patellofemoral joint large superior trochlear osteophytes but only grade 1 changes on the patella Pre Op Diagnosis: Right knee grade 4 lateral and medial compartment osteoarthritis Post-Op Diagnosis: Right knee grade 4 lateral and medial compartment osteoarthritis Anesthesia Technique: Spinal Primary Surgeon: Isaias Barker Division Toll Wire Chief: Deena Neri Division Toll Wire Chief Was Necessary: Positioning and retraction Pathology: Bone cuts to pathology EBL in mLs: 10 Complications: None Free Text/Narrative:: Patient had failed optimal medical management for his knee osteoarthritis. We discussed the risks and benefits of total knee arthroplasty. All patients were answered. Patient consented to proceed with surgery. Patient was medically optimized for surgery. Patient was taken to the operating room. After adequate spinal anesthesia, he was placed in the supine position. Tourniquet was placed around the right proximal thigh. Right lower extremities prepped and draped in usual sterile manner. The leg was elevated and the tourniquet inflated. A midline incision was used centered over the patella. Subcutaneous tissue was incised electrocautery. A medial parapatellar arthrotomy was performed with the patella everted. Soft tissues were excised. The distal femoral cut was made with a intramedullary alignment guide. Two extra millimeters were taken to get to the base of the cartilage in the trochlear groove. The femur was sized to a size 6 and the rotation of the cutting block was adjusted to account for the lateral femoral condyle hypoplasia. The cuts were made with a constrained cutting guide. Trial component fit well. Lug holes were punched. Tibia was cut with an intramedullary alignment guide. This was sized to a size 7. Osteophytes were removed on the posterior femur and the medial tibia. The keel was punched. The trial component fit well and there was good range of motion and stability with a 9 mm polyethylene component. The patella did not require resurfacing because there was only grade 1 changes on the patella. Marginal osteophytes were removed with a rongeur. Trial components were removed, the #7 tibial component was inserted with antibiotic cement, and excess cement removed. A 9 mm cruciate retaining polyethylene component was then inserted. The #6 cobalt chrome cruciate retaining femoral component was then inserted with antibiotic cement and excess cement removed. The knee was brought into full extension and reinspected. A excess cement was removed. The cement was allowed to harden. The knee was then pulse lavaged and reinspected and noted to clear any loose debris or cement. Parapatellar arthrotomy was repaired with interrupted and running #1 Vicryl suture. Subcutaneous tissue was closed with interrupted 2-0 Vicryl suture. Skin was closed with strata fix running Monocryl suture. A sterile dressing was applied and patient was accompanied the cover in stable condition. Pain management: Pitcher, tramadol, acetaminophen. No NSAIDs due to renal disease. Venous thromboembolism prophylaxis: Aspirin 3 and 25 mg enteric-coated daily for 90 days. Prophylactic antibiotics: Ancef IV for 2 doses. Restrictions: Patient is weightbearing as tolerated on his right lower extremity with an assistive device as needed. He should receive physical therapy according to the total knee arthroplasty protocol. No restrictions.
[2020-07-24] MEDS ORDERED: Glucagon,Human Recombinant 1 MG Vial IM PRN (11:41)
[2020-07-24] MEDS ORDERED: 50% Dextrose in Water 50 ML Syringe IV PRN (11:41)
--- NOTE | 2020-07-24 11:45 | PCM.CONS ---
H&P History of Present Illness - General Date of Service: 07/24/20 Admit Problem/Dx: Admission Diagnosis/Problem Admission Diagnosis/Problem Knee pain Source of Information: Patient History Limitations: Reports: No Limitations - History of Present Illness Initial Comments - Free Text/Narative: This 65-year-old male with past medical history of HTN, HLD, DM type II, CKD, and duodenal ulcers presented today for right TKA with Dr. Barker, orthopedics. Hospitalist service consulted for medical management of comorbidities postoperatively. Braydon returned to his room from PACU. He is alert and oriented and denies any current pain. He reports he has been feeling well and currently feels well. He denies any chest pain shortness of breath fevers chills or palpitations. He denies any abdominal pain and no knee pain. He reports that blood pressure and blood sugars at home have been really well controlled. He follows up with Dr. Carrera for PCP. He reports no significant issues postoperatively with prior surgeries. He denies any history of VA or CVA. He denies any history of breathing trouble such as COPD or NANETTE. He does have a history of CKD which baseline BUN and creatinine are 24 and 1.7 respectively. He is on amlodipine and losartan for blood pressures which are well controlled. He takes Tradjenta as well as glimepiride for blood sugar control last A1c was 7.4. PCP Dr. Carrera - Related Data Allergies/Adverse Reactions: Allergies Allergy/AdvReac Type Severity Reaction Status Date / Time No Known Allergies Allergy Verified 07/24/20 07:38 Home Medications: Home Meds Linagliptin [Tradjenta] 5 mg PO DAILY 06/03/17 [History] Simvastatin [Zocor] 40 mg PO DAILY 06/03/17 [History] Losartan Potassium 50 mg PO DAILY 06/21/17 [History] Glimepiride 1 mg PO DAILY 07/18/20 [History] amLODIPine Besylate [Amlodipine Besylate] 10 mg PO DAILY 07/18/20 [History] Past Medical History HEENT History: Reports: Other (See Below) Other HEENT History: reading glasses Cardiovascular History: Reports: High Cholesterol, Hypertension. Denies: Afib, Blood Clots/VTE/DVT, CAD, VA Respiratory History: Reports: None. Denies: Asthma, COPD, Sleep Apnea, SOB Gastrointestinal History: Reports: Cholelithiasis, Other (See Below) Other Gastrointestinal History: duodenal ulcers Genitourinary History: Reports: None Musculoskeletal History: Reports: Fracture, Osteoarthritis Other Musculoskeletal History: hx fx foot and fx finger rt hand Neurological History: Reports: None Psychiatric History: Reports: None Endocrine/Metabolic History: Reports: Diabetes, Type II, Obesity/BMI 30+ Hematologic History: Reports: None Immunologic History: Reports: None Oncologic (Cancer) History: Reports: None Dermatologic History: Reports: None - Infectious Disease History Infectious Disease History: Reports: None - Past Surgical History Head Surgeries/Procedures: Reports: None HEENT Surgical History: Reports: Cataract Surgery Cardiovascular Surgical History: Reports: None Respiratory Surgical History: Reports: None GI Surgical History: Reports: Cholecystectomy, EGD Male Surgical History: Reports: None Endocrine Surgical History: Reports: None Neurological Surgical History: Reports: None Musculoskeletal Surgical History: Reports: Other (See Below) Other Musculoskeletal Surgeries/Procedures:: hamstring surgery , surgical tx for fx finger on rt hand Oncologic Surgical History: Reports: None Social & Family History - Family History Family Medical History: No Pertinent Family History Cardiac: Reports: Hypertension - Tobacco Use Tobacco Use Status *Q: Never Tobacco User - Caffeine Use Caffeine Use: Reports: Coffee Other Caffeine Use: "once in a while" - Recreational Drug Use Drug Use in Last 12 Months: No H&P Review of Systems - Review of Systems: Review Of Systems: See Below General: Reports: No Symptoms. Denies: Fever, Malaise, Weakness HEENT: Reports: No Symptoms. Denies: Headaches, Sinus Congestion, Visual Changes Pulmonary: Reports: No Symptoms. Denies: Shortness of Breath Cardiovascular: Reports: No Symptoms. Denies: Chest Pain Gastrointestinal: Reports: No Symptoms. Denies: Abdominal Pain, Black Stool, Bloody Stool, Nausea, Vomiting Genitourinary: Reports: No Symptoms. Denies: Dysuria, Frequency, Burning Musculoskeletal: Reports: No Symptoms Skin: Reports: No Symptoms Psychiatric: Reports: No Symptoms Neurological: Reports: No Symptoms Hematologic/Lymphatic: Reports: No Symptoms Immunologic: Reports: No Symptoms Exam - Exam Exam: See Below - Vital Signs Vital Signs: Last Vital Signs Temp 96.8 F L 07/24/20 11:30 Pulse 77 07/24/20 11:30 Resp 16 07/24/20 11:30 BP 145/70 H 07/24/20 11:30 Pulse Ox 91 L 07/24/20 11:30 Weight: 113.398 kg - Exam General: Alert, Oriented, Cooperative HEENT: Conjunctiva Clear, Mucosa Moist & [place], Posterior Pharynx Clear Lungs: Clear to Auscultation, Normal Respiratory Effort Cardiovascular: Regular Rate, Regular Rhythm GI/Abdominal Exam: Normal Bowel Sounds, Soft, Non-Tender Extremities: Normal Inspection, Normal Range of Motion, Non-Tender, No Pedal Edema Skin: Warm, Dry, Intact, Incision (Right knee Thom wrap with polar ice intact) Neuro Extensive - Mental Status: Alert, Oriented x3 Psychiatric: Alert, Normal Affect, Normal Mood - Patient Data Lab Results Last 24 hrs: Laboratory Results - last 24 hr 07/24/20 07/24/20 07/24/20 Range/Units 06:47 07:03 07:03 Hgb 16.1 (13.0-17.0) g/dL Hct 48.6 (38.0-50.0) % SARS-CoV-2 RNA ([facility]) NEGATIVE (NEGATIVE) Blood Type A NEGATIVE Antibody Screen NEGATIVE Result Diagrams: 07/24/20 07:03 07/24/20 06:59 Sepsis Event Note - Focused Exam Vital Signs: Vital Signs Temp Pulse Resp BP Pulse Ox 07/24/20 11:30 96.8 F L 77 16 145/70 H 91 L 07/24/20 11:20 65 12 114/64 92 L 07/24/20 11:15 79 15 104/56 L 92 L 07/24/20 11:09 80 13 127/62 93 L 07/24/20 11:05 77 13 126/73 92 L 07/24/20 10:59 70 10 L 118/67 91 L 07/24/20 10:55 72 12 127/64 92 L 07/24/20 10:50 86 14 116/67 92 L 07/24/20 10:45 94 12 126/63 89 L 07/24/20 10:39 97.5 F 82 10 L 123/64 92 L 07/24/20 06:48 98.1 F 84 16 153/87 H 92 L Consult PN Assessment/Plan POD#: 0 Procedures: Procedures ASSAY OF AMYLASE (06/03/17) ASSAY OF LIPASE (06/03/17) COMPLETE CBC W/AUTO DIFF WBC (02/13/19) COMPREHEN METABOLIC PANEL (02/13/19) CT ABD & PELVIS W/O CONTRAST (06/03/17) DRESS/DEBRID P-THICK BURN S (10/04/17) ECHO EXAM OF ABDOMEN (06/03/17) EGD BIOPSY SINGLE/MULTIPLE (06/24/17) EGD DIAGNOSTIC BRUSH WASH (09/02/17) ELECTROCARDIOGRAM TRACING (06/03/17) EMERGENCY DEPT VISIT (07/31/19) EMERGENCY DEPT VISIT (02/13/19) EMERGENCY DEPT VISIT (07/07/18) EMERGENCY DEPT VISIT (06/03/17) EXTREMITY STUDY (02/13/19) GLUCOSE BLOOD TEST (09/02/17) GLYCOSYLATED HEMOGLOBIN TEST (02/13/19) HELICOBACTER PYLORI ANTIBODY (06/03/17) HYDRATE IV INFUSION ADD-ON (06/03/17) IMMUNIZATION ADMIN (10/04/17) LAPAROSCOPIC CHOLECYSTECTOMY (09/14/17) MRI ABDOMEN W/O & W/DYE (06/03/17) PROTHROMBIN TIME (02/13/19) ROUTINE VENIPUNCTURE (02/13/19) RPR S/N/AX/GEN/TRNK2.6-7.5CM (07/07/18) TDAP VACCINE 7 YRS/> IM (10/04/17) THER/PROPH/DIAG INJ IV PUSH (06/03/17) THER/PROPH/DIAG INJ SC/IM (02/13/19) THROMBOPLASTIN TIME PARTIAL (02/13/19) URINALYSIS AUTO W/SCOPE (07/31/19) URINE CULTURE/COLONY COUNT (06/03/17) X-RAY EXAM KNEE 4 OR MORE (06/06/20) X-RAY EXAM OF FINGER(S) (07/07/18) X-RAY EXAM OF LOWER LEG (02/13/19) X-RAY EXAM UNILAT RIBS/CHEST (07/31/19) (1) S/P total knee arthroplasty SNOMED Code(s): 2826046321512, 678728221, 0952393571660 Code(s): Z96.659 - PRESENCE OF UNSPECIFIED ARTIFICIAL KNEE JOINT Current Visit: Yes Qualifiers: Laterality: right Qualified Code(s): Z96.651 - Presence of right artificial knee joint (2) History of duodenal ulcer SNOMED Code(s): 185700741 Code(s): Z87.19 - PERSONAL HISTORY OF OTHER DISEASES OF THE DIGESTIVE SYSTEM Current Visit: Yes (3) HTN (hypertension) SNOMED Code(s): 15552444 Code(s): I10 - ESSENTIAL (PRIMARY) HYPERTENSION Current Visit: Yes Qualifiers: Hypertension type: essential hypertension Qualified Code(s): I10 - Essential (primary) hypertension (4) HLD (hyperlipidemia) SNOMED Code(s): 18171310 Code(s): E78.5 - HYPERLIPIDEMIA, UNSPECIFIED Current Visit: Yes (5) CKD (chronic kidney disease) SNOMED Code(s): 501432685 Code(s): N18.9 - CHRONIC KIDNEY DISEASE, UNSPECIFIED Current Visit: Yes (6) History of type 2 diabetes mellitus SNOMED Code(s): 609785431 Code(s): Z86.39 - PERSONAL HISTORY OF ENDO, NUTRITIONAL AND METABOLIC DISEASE Current Visit: No Problem List Initiated/Reviewed/Updated: Yes My Orders Last 24 Hours: My Active Orders 07/24/20 06:59 BASIC METABOLIC PANEL,BMP [CHEM] Routine CBC WITH AUTO DIFF [HEME] Routine MAGNESIUM [CHEM] Routine 07/24/20 11:41 Blood Glucose Check, Bedside [RC] TIDMEALS Dextrose 50% in Water 50 ml IV ASDIRECTED PRN Glucagon,Human Recombinant [GlucaGen] 1 mg IM ASDIRECTED PRN Insulin Aspart [NovoLOG] See Protocol SUBCUT TIDAC 07/25/20 09:00 Losartan Potassium 50 mg PO DAILY Simvastatin [Zocor] 40 mg PO DAILY amLODIPine Besylate 10 mg PO DAILY Plan: This 65-year-old male admitted with right TKA. Hospitalist service consulted for medical management of comorbidities postoperatively. 1. S/p total right knee arthroplasty -Orders per orthopedics -ASA daily for VTE prophylaxis 2. HTN -Stable, will resume amlodipine and losartan 3. DM type II -Stable A1c 7.4 -Hold oral medications during hospitalization may restart upon discharge -NovoLog sliding scale insulin with meals -3 times daily AC blood sugars 4. CKD: -Avoid nephrotoxic medications -BUN/creatinine 26 and 1.7 which is near baseline -Monitor daily VTE prophylaxis: SCDs and ASA GI prophylaxis: Pepcid CODE STATUS: Full code
[2020-07-24 12:01] LABS: CARBON DIOXIDE,CO2 23.4 mmol/L (21.0-32.0); POTASSIUM,K 4.3 mmol/L (3.5-5.1)
--- NOTE | 2020-07-24 12:10 | CR ---
INDICATION: Post surgical evaluation. TECHNIQUE: Portable AP and lateral view right knee performed at 11:13 a.m.. FINDINGS: The femoral and tibial components of the new right knee arthroplasty appear anatomically aligned. There is no evidence of a fracture. IMPRESSION: Normal radiographic appearance of the new right knee arthroplasty. Dictated by Jm Davis MD @ Jul 24 2020 12:07PM Signed by Dr. Jm Davis @ Jul 24 2020 12:09PM
[2020-07-24] MEDS ORDERED: Acetaminophen 325 MG Tab PO PRN (13:00)
--- NOTE | 2020-07-24 13:44 | PCM.POSTAN ---
POST ANESTHESIA ASSESSMENT - MENTAL STATUS Mental Status: Alert, Oriented - VITAL SIGNS Vital Signs: Last Vital Signs Temp 96.8 F L 07/24/20 11:30 Pulse 77 07/24/20 11:30 Resp 16 07/24/20 11:30 BP 145/70 H 07/24/20 11:30 Pulse Ox 91 L 07/24/20 11:30 - RESPIRATORY Respiratory Status: Respiratory Rate WNL, Airway Patent, O2 Saturation Stable - CARDIOVASCULAR CV Status: Pulse Rate WNL, Blood Pressure Stable - GASTROINTESTINAL GI Status: No Symptoms - POST OP HYDRATION Hydration Status: Adequate & Stable
[2020-07-24] MEDS: Insulin Aspart 100 Units/ML 3 ML Pen SUBCUT SCH ×2 (14:04→17:44)
[2020-07-24] MEDS: oxyCODONE 5 MG Tab PO PRN (15:30)
[2020-07-24] MEDS: Aspirin 325 MG Tab PO SCH (17:12)
[2020-07-24] MEDS: ceFAZolin 2 GM in Premix Bag 1 BAG IV SCH (17:13)
--- NOTE | 2020-07-24 18:24 | PCM.SN.2 ---
- Free Text/Narrative Note: Ortho Note I received a call from the charge nurse. Patient fell attempting to get out of bed. He reports that his right leg gave out when he was trying to get out of bed. He landed on his buttocks. He did not hit his head or his operative knee. He has no pain or injury. I followed up with Dr. Ospina. Patient received a femoral nerve block. I had communicated that I wanted a regional block for pain management but I did not specify an adductor canal block. Quadriceps weakness is a known effect of femoral nerve blocks. I spoke with the patient and he understands. He was not injured.
[2020-07-24] MEDS: Simvastatin 40 MG Tab PO SCH (21:22)
[2020-07-24] MEDS: Sodium Chloride 0.9% 2.5 ML Syringe FLUSH PRN (21:22)
[2020-07-25] MEDS: Sodium Chloride 0.9% 2.5 ML Syringe FLUSH PRN (01:02)
[2020-07-25] MEDS: ceFAZolin 2 GM in Premix Bag 1 BAG IV SCH (01:06)
[2020-07-25 06:43] LABS: CARBON DIOXIDE,CO2 28.5 mmol/L (21.0-32.0); POTASSIUM,K 5.3 mmol/L (3.5-5.1)
[2020-07-25] MEDS ORDERED: Magnesium Sulfate/Water 2 GM/50 ML BAG IV ONE (08:09)
--- NOTE | 2020-07-25 08:16 | PCM48HPAN ---
Post Anesthesia Note - EVALUATION WITHIN 48HRS OF ANESTHETIC Vital Signs in Normal Range: Yes Patient Participated in Evaluation: Yes Respiratory Function Stable: Yes Airway Patent: Yes Cardiovascular Function Stable: Yes Hydration Status Stable: Yes Pain Control Satisfactory: Yes Nausea and Vomiting Control Satisfactory: Yes Mental Status Recovered: Yes Vital Signs: Last Vital Signs Temp 36.4 C 07/25/20 05:00 Pulse 69 07/25/20 05:00 Resp 20 07/25/20 05:00 BP 136/79 07/25/20 05:00 Pulse Ox 93 L 07/25/20 05:00 - COMMENTS/OBSERVATIONS Free Text/Narrative:: Patient doing well in regards to anesthesia. He did have a fall last evening without injury and Surgeon was notified. Explained to patient what type of block he had and how it affects his motor and sensory sensation. Patient states understanding. No concerns related to anesthesia at this time.
[2020-07-25] MEDS: Famotidine 20 MG Tab PO SCH (08:40)
[2020-07-25] MEDS: amLODIPine 5 MG Tab PO SCH (08:48)
[2020-07-25] MEDS: Losartan 50 MG Tab PO SCH (08:48)
[2020-07-25] MEDS ORDERED: Aspirin 325 MG Tab ONE (08:55)
[2020-07-25] MEDS: Insulin Aspart 100 Units/ML 3 ML Pen SUBCUT SCH ×3 (09:00→17:59)
[2020-07-25] MEDS: oxyCODONE 5 MG Tab PO PRN ×3 (09:06→20:15)
[2020-07-25] MEDS: Polyethylene Glycol 3350 Powder 17 GM Packet PO SCH (09:07)
[2020-07-25] MEDS: Aspirin 325 MG Tab PO SCH (09:07)
--- NOTE | 2020-07-25 12:05 | PCM.SURGPN ---
- General Info Date of Service: 07/25/20 (0800) Date of Surgery/Procedure: 07/24/20 (RIGHT TKA) POD#: 1 Admission Diagnosis/Problem: Knee pain Functional Status: Reports: Pain Controlled (received femoral nerve block prior to surgery, and tolerating oxycodone), Tolerating Diet (denies N/V), Urinating. Denies: Ambulating (reports leg weakness, which resulted in a fall yesterday) - Review of Systems General: Denies: Fever Gastrointestinal: Denies: Nausea, Vomiting Musculoskeletal: Reports: Joint Pain (post-surgical knee pain, well controlled) Neurological: Reports: No Symptoms Psychiatric: Reports: No Symptoms - Patient Data Vitals - Most Recent: Last Vital Signs Temp 36.6 C 07/25/20 08:50 Pulse 74 07/25/20 08:50 Resp 18 07/25/20 08:50 BP 117/77 07/25/20 08:48 Pulse Ox 95 07/25/20 08:50 Weight - Most Recent: 113.398 kg I&O - Last 24 Hours: Intake & Output 07/24/20 07/25/20 07/25/20 22:59 06:59 14:59 Intake Total 1212 50 Balance 1212 50 Lab Results Last 24 Hrs: Laboratory Results - last 24 hr 07/24/20 07/24/20 07/24/20 Range/Units 06:59 06:59 17:16 WBC 7.24 (4.0-11.0) K/uL RBC 4.96 (4.50-5.90) M/uL Hgb 15.9 (13.0-17.0) g/dL Hct 48.6 (38.0-50.0) % MCV 98.0 (80.0-98.0) fL MCH 32.1 H (27.0-32.0) pg MCHC 32.7 (31.0-37.0) g/dL RDW Std Deviation 46.5 (28.0-62.0) fl RDW Coeff of Dalton 13 (11.0-15.0) % Plt Count 205 (150-400) K/uL MPV 10.70 (7.40-12.00) fL Neut % (Auto) 56.5 (48.0-80.0) % Lymph % (Auto) 23.9 (16.0-40.0) % [place] % (Auto) 14.6 (0.0-15.0) % Eos % (Auto) 4.0 (0.0-7.0) % Baso % (Auto) 1.0 (0.0-1.5) % Neut # (Auto) 4.1 (1.4-5.7) K/uL Lymph # (Auto) 1.7 (0.6-2.4) K/uL [place] # (Auto) 1.1 H (0.0-0.8) K/uL Eos # (Auto) 0.3 (0.0-0.7) K/uL Baso # (Auto) 0.1 (0.0-0.1) K/uL Nucleated RBC % 0.0 /100WBC Nucleated RBCs # 0 K/uL Sodium 139 (136-148) mmol/L Potassium 4.3 (3.5-5.1) mmol/L Chloride 103 (98-107) mmol/L Carbon Dioxide 23.4 (21.0-32.0) mmol/L BUN 26 H (7.0-18.0) mg/dL Creatinine 1.7 H (0.8-1.3) mg/dL Est Cr Clr Drug Dosing 46.28 mL/min Estimated GFR (MDRD) 40.4 ml/min Glucose 179 H (74-106) mg/dL POC Glucose 152 H (60-110) mg/dL Calcium 9.3 (8.5-10.1) mg/dL Magnesium 2.0 (1.8-2.4) mg/dL 07/25/20 07/25/20 07/25/20 Range/Units 05:55 05:55 06:12 WBC (4.0-11.0) K/uL RBC (4.50-5.90) M/uL Hgb 13.2 (13.0-17.0) g/dL Hct 41.3 (38.0-50.0) % MCV (80.0-98.0) fL MCH (27.0-32.0) pg MCHC (31.0-37.0) g/dL RDW Std Deviation (28.0-62.0) fl RDW Coeff of Dalton (11.0-15.0) % Plt Count (150-400) K/uL MPV (7.40-12.00) fL Neut % (Auto) (48.0-80.0) % Lymph % (Auto) (16.0-40.0) % [place] % (Auto) (0.0-15.0) % Eos % (Auto) (0.0-7.0) % Baso % (Auto) (0.0-1.5) % Neut # (Auto) (1.4-5.7) K/uL Lymph # (Auto) (0.6-2.4) K/uL [place] # (Auto) (0.0-0.8) K/uL Eos # (Auto) (0.0-0.7) K/uL Baso # (Auto) (0.0-0.1) K/uL Nucleated RBC % /100WBC Nucleated RBCs # K/uL Sodium 136 (136-148) mmol/L Potassium 5.3 H (3.5-5.1) mmol/L Chloride 102 (98-107) mmol/L Carbon Dioxide 28.5 (21.0-32.0) mmol/L BUN 21 H (7.0-18.0) mg/dL Creatinine 1.6 H (0.8-1.3) mg/dL Est Cr Clr Drug Dosing 49.17 mL/min Estimated GFR (MDRD) 43.3 ml/min Glucose 176 H (74-106) mg/dL POC Glucose 175 H (60-110) mg/dL Calcium 8.2 L (8.5-10.1) mg/dL Magnesium 1.7 L (1.8-2.4) mg/dL 07/25/20 Range/Units 09:00 WBC (4.0-11.0) K/uL RBC (4.50-5.90) M/uL Hgb (13.0-17.0) g/dL Hct (38.0-50.0) % MCV (80.0-98.0) fL MCH (27.0-32.0) pg MCHC (31.0-37.0) g/dL RDW Std Deviation (28.0-62.0) fl RDW Coeff of Dalton (11.0-15.0) % Plt Count (150-400) K/uL MPV (7.40-12.00) fL Neut % (Auto) (48.0-80.0) % Lymph % (Auto) (16.0-40.0) % [place] % (Auto) (0.0-15.0) % Eos % (Auto) (0.0-7.0) % Baso % (Auto) (0.0-1.5) % Neut # (Auto) (1.4-5.7) K/uL Lymph # (Auto) (0.6-2.4) K/uL [place] # (Auto) (0.0-0.8) K/uL Eos # (Auto) (0.0-0.7) K/uL Baso # (Auto) (0.0-0.1) K/uL Nucleated RBC % /100WBC Nucleated RBCs # K/uL Sodium (136-148) mmol/L Potassium (3.5-5.1) mmol/L Chloride (98-107) mmol/L Carbon Dioxide (21.0-32.0) mmol/L BUN (7.0-18.0) mg/dL Creatinine (0.8-1.3) mg/dL Est Cr Clr Drug Dosing mL/min Estimated GFR (MDRD) ml/min Glucose (74-106) mg/dL POC Glucose 150 H (60-110) mg/dL Calcium (8.5-10.1) mg/dL Magnesium (1.8-2.4) mg/dL Med Orders - Current: Current Medications Acetaminophen (Tylenol) 650 mg PO Q6H PRN PRN Reason: Pain Al Hydroxide/Mg Hydroxide (Mag-Al Plus) 30 ml PO Q4H PRN PRN Reason: Indigestion Amlodipine Besylate (Norvasc) 10 mg PO DAILY [facility] Last Admin: 07/25/20 08:48 Dose: 10 mg Documented by: Aspirin (Aspirin) 325 mg PO DAILY [facility] Last Admin: 07/25/20 09:07 Dose: 325 mg Documented by: Bisacodyl (Dulcolax) 10 mg RECTAL DAILY PRN PRN Reason: Constipation Dextrose/Water (Dextrose 50% In Water) 50 ml IV ASDIRECTED PRN PRN Reason: Hypoglycemia Diphenhydramine HCl (Benadryl) 25 - 50 mg PO Q6H PRN PRN Reason: Itching Docusate Sodium (Colace) 100 mg PO BID PRN PRN Reason: Constipation Famotidine (Pepcid) 40 mg IVPUSH ONARRIVE [facility] Last Admin: 07/24/20 07:16 Dose: 40 mg Documented by: Famotidine (Pepcid) 40 mg PO ACBREAKFAST [facility] Last Admin: 07/25/20 08:40 Dose: 40 mg Documented by: Glucagon (Glucagen) 1 mg IM ASDIRECTED PRN PRN Reason: Hypoglycemia Ropivacaine 49.25 ml/Ketorolac Tromethamine 30 mg/Epinephrine HCl 0.5 mg/Clonidine HCl 80 mcg/ Sodium Chloride 75 mls @ 50 mls/sec INJECT ASDIRECTED [facility] Cefazolin Sodium/Dextrose 2 gm (/ Premix) 50 mls @ 100 mls/hr IV ONCALL [facility] Lactated Ringer's (Ringers, Lactated) 1,000 mls @ 100 mls/hr IV ASDIRECTED [facility] Last Admin: 07/24/20 11:48 Dose: 100 mls/hr Documented by: Insulin Aspart (Novolog) 0 unit SUBCUT TIDAC [facility]; Protocol Last Admin: 07/25/20 09:00 Dose: 1 unit Documented by: Losartan Potassium (Cozaar) 50 mg PO DAILY [facility] Last Admin: 07/25/20 08:48 Dose: 50 mg Documented by: Morphine Sulfate (Morphine) 1 - 2 mg IVPUSH Q3H PRN PRN Reason: Pain Ondansetron HCl (Zofran) 4 mg IVPUSH Q6H PRN PRN Reason: Nausea/Vomiting Oxycodone HCl (Oxycodone) 5 - 10 mg PO Q4H PRN PRN Reason: Pain Last Admin: 07/25/20 09:06 Dose: 5 mg Documented by: Polyethylene Glycol (Miralax) 17 gm PO DAILY [facility] Last Admin: 07/25/20 09:07 Dose: 17 gm Documented by: Scopolamine (Transderm-Scop) 1.5 mg TRDERM ONARRIVE [facility] Last Admin: 07/24/20 07:14 Dose: 1.5 mg Documented by: Simvastatin (Zocor) 40 mg PO BEDTIME [facility] Last Admin: 07/24/20 21:22 Dose: 40 mg Documented by: Sodium Chloride (Saline Flush) 10 ml FLUSH ASDIRECTED PRN PRN Reason: Keep Vein Open Sodium Chloride (Saline Flush) 2.5 ml FLUSH ASDIRECTED PRN PRN Reason: Keep Vein Open Last Admin: 07/25/20 01:02 Dose: 2.5 ml Documented by: Tramadol HCl (Ultram) 50 - 100 mg PO Q6H PRN PRN Reason: Pain Discontinued Medications Aspirin (Aspirin) 81 mg PO ONETIME ONE Stop: 07/24/20 07:56 Last Admin: 07/24/20 08:02 Dose: 324 mg Documented by: Aspirin (Aspirin) Confirm Administered Dose 325 mg .ROUTE .STK-MED ONE Stop: 07/25/20 08:56 Last Admin: 07/25/20 09:06 Dose: Not Given Documented by: Bupivacaine HCl (Sensorcaine-Mpf 0.25%) Confirm Administered Dose 30 ml .ROUTE .STK-MED ONE Stop: 07/24/20 07:40 Cefazolin Sodium (Ancef) Confirm Administered Dose 2 gm .ROUTE .STK-MED ONE Stop: 07/24/20 06:55 Cefazolin Sodium (Ancef) Confirm Administered Dose 1 gm .ROUTE .STK-MED ONE Stop: 07/24/20 08:29 Ephedrine Sulfate (Ephedrine Sulfate) Confirm Administered Dose 50 mg .ROUTE .STK-MED ONE Stop: 07/24/20 08:43 Fentanyl (Sublimaze) Confirm Administered Dose 100 mcg .ROUTE .STK-MED ONE Stop: 07/24/20 09:38 Glycopyrrolate (Robinul) Confirm Administered Dose 0.2 mg .ROUTE .STK-MED ONE Stop: 07/24/20 10:11 Tranexamic Acid 1,000 mg/ (Sodium Chloride) 110 mls @ 600 mls/hr IV ASDIRECTED ONE Stop: 07/24/20 08:10 Sodium Chloride (Normal Saline) Confirm Administered Dose 20 mls @ as directed .ROUTE .STK-MED ONE Stop: 07/24/20 06:55 Cefazolin Sodium/Dextrose 2 gm (/ Premix) 50 mls @ 100 mls/hr IV Q8H RICHARD Stop: 07/25/20 01:29 Last Admin: 07/25/20 01:06 Dose: 100 mls/hr Documented by: Magnesium Sulfate (Magnesium Sulfate In Water 2 Gm/50 Ml) 2 gm in 50 mls @ 50 mls/hr IV ONETIME ONE Stop: 07/25/20 09:08 Last Admin: 07/25/20 08:45 Dose: 50 mls/hr Documented by: Lidocaine (Xylocaine-Mpf 2%) Confirm Administered Dose 5 ml .ROUTE .STK-MED ONE Stop: 07/24/20 06:53 Lidocaine HCl (Xylocaine-Mpf 1%) Confirm Administered Dose 5 ml .ROUTE .STK-MED ONE Stop: 07/24/20 08:43 Midazolam HCl (Versed 1 Mg/Ml) Confirm Administered Dose 2 mg .ROUTE .STK-MED ONE Stop: 07/24/20 07:09 Ondansetron HCl (Zofran) Confirm Administered Dose 4 mg .ROUTE .STK-MED ONE Stop: 07/24/20 06:53 Propofol (Diprivan 20 Ml) Confirm Administered Dose 400 mg .ROUTE .STK-MED ONE Stop: 07/24/20 06:54 Propofol (Diprivan 20 Ml) Confirm Administered Dose 200 mg .ROUTE .STK-MED ONE Stop: 07/24/20 09:47 Tranexamic Acid (Cyklokapron) Confirm Administered Dose 2,000 mg .ROUTE .STK-MED ONE Stop: 07/24/20 08:08 - Exam Wound/Incisions: Dressing Dry and Intact (surgical dressing intact to right knee), No Drainage Quality Assessment: DVT Prophylaxis (ASA 325mg was started yesterday) General: Alert, Oriented, Cooperative, No Acute Distress Lungs: Normal Respiratory Effort Extremities: No Pedal Edema, Normal Capillary Refill, Other ( sensation intact to medial and lateral thigh. Sensation intact to RLE. Active ROM with ankle plantarflexion and dorsiflexion. ) Neurological: Normal Speech Psy/Mental Status: Alert, Normal Affect Sepsis Event Note - Evaluation Sepsis Screening Result: No Definite Risk - Focused Exam Vital Signs: Vital Signs Temp Pulse Resp BP BP Pulse Ox 07/25/20 08:50 36.6 C 74 18 95 07/25/20 08:48 117/77 07/25/20 05:00 36.4 C 69 20 136/79 93 L 07/25/20 00:47 36.2 C 76 20 121/77 92 L - Problem List Review Problem List Initiated/Reviewed/Updated: Yes - My Orders Last 24 Hours: Active Orders 24 hr Category Date Time Status Blood Glucose Check, Bedside [RC] TIDMEALS Care 07/24/20 11:41 Active Chest 1V Frontal [CR] Urgent Exams 07/25/20 11:10 Taken HEMOGLOBIN/HEMATOCRIT,HH [HEME] DAILY Lab 07/26/20 06:00 Ordered Acetaminophen [TylenoL] Med 07/24/20 13:00 Active 650 mg PO Q6H PRN Aspirin Med 07/24/20 17:00 Active 325 mg PO DAILY Dextrose 50% in Water Med 07/24/20 11:41 Active 50 ml IV ASDIRECTED PRN Famotidine [Pepcid] Med 07/25/20 07:30 Active 40 mg PO ACBREAKFAST Glucagon,Human Recombinant [GlucaGen] Med 07/24/20 11:41 Active 1 mg IM ASDIRECTED PRN Insulin Aspart [NovoLOG] Med 07/24/20 11:41 Active See Protocol SUBCUT TIDAC Losartan [Cozaar] Med 07/25/20 09:00 Active 50 mg PO DAILY Simvastatin [Zocor] Med 07/24/20 21:00 Active 40 mg PO BEDTIME amLODIPine [Norvasc] Med 07/25/20 09:00 Active 10 mg PO DAILY polyethylene glycoL 3350 [MiraLAX] Med 07/25/20 09:00 Active 17 gm PO DAILY Convert IV to Saline Lock [OM.PC] PRN Oth 07/25/20 10:45 Ordered Medication Orders Acetaminophen (Tylenol) 650 mg PO Q6H PRN PRN Reason: Pain Al Hydroxide/Mg Hydroxide (Mag-Al Plus) 30 ml PO Q4H PRN PRN Reason: Indigestion Amlodipine Besylate (Norvasc) 10 mg PO DAILY [facility] Last Admin: 07/25/20 08:48 Dose: 10 mg Documented by: JESSICA Aspirin (Aspirin) 325 mg PO DAILY [facility] Last Admin: 07/25/20 09:07 Dose: 325 mg Documented by: Admin: 07/24/20 17:12 Dose: 325 mg Documented by: JOY Bisacodyl (Dulcolax) 10 mg RECTAL DAILY PRN PRN Reason: Constipation Dextrose/Water (Dextrose 50% In Water) 50 ml IV ASDIRECTED PRN PRN Reason: Hypoglycemia Diphenhydramine HCl (Benadryl) 25 - 50 mg PO Q6H PRN PRN Reason: Itching Docusate Sodium (Colace) 100 mg PO BID PRN PRN Reason: Constipation Famotidine (Pepcid) 40 mg IVPUSH ONARRIVE [facility] Last Admin: 07/24/20 07:16 Dose: 40 mg Documented by: GILDARDO Famotidine (Pepcid) 40 mg PO ACBREAKFAST [facility] Last Admin: 07/25/20 08:40 Dose: 40 mg Documented by: JESSICA Glucagon (Glucagen) 1 mg IM ASDIRECTED PRN PRN Reason: Hypoglycemia Ropivacaine 49.25 ml/Ketorolac Tromethamine 30 mg/Epinephrine HCl 0.5 mg/Clonidine HCl 80 mcg/ Sodium Chloride 75 mls @ 50 mls/sec INJECT ASDIRECTED [facility] Cefazolin Sodium/Dextrose 2 gm (/ Premix) 50 mls @ 100 mls/hr IV ONCALL [facility] Lactated Ringer's (Ringers, Lactated) 1,000 mls @ 100 mls/hr IV ASDIRECTED [facility] Last Admin: 07/24/20 11:48 Dose: 100 mls/hr Documented by: Infusion: 07/24/20 11:48 Dose: 100 mls/hr Documented by: Admin: 07/24/20 07:13 Dose: 100 mls/hr Documented by: GILDARDO Insulin Aspart (Novolog) 0 unit SUBCUT TIDAC [facility]; Protocol Last Admin: 07/25/20 09:00 Dose: 1 unit Documented by: Admin: 07/24/20 17:44 Dose: 1 unit Documented by: Admin: 07/24/20 14:04 Dose: Not Given Documented by: JOY Losartan Potassium (Cozaar) 50 mg PO DAILY [facility] Last Admin: 07/25/20 08:48 Dose: 50 mg Documented by: JESSICA Morphine Sulfate (Morphine) 1 - 2 mg IVPUSH Q3H PRN PRN Reason: Pain Ondansetron HCl (Zofran) 4 mg IVPUSH Q6H PRN PRN Reason: Nausea/Vomiting Oxycodone HCl (Oxycodone) 5 - 10 mg PO Q4H PRN PRN Reason: Pain Last Admin: 07/25/20 09:06 Dose: 5 mg Documented by: Admin: 07/24/20 15:30 Dose: 10 mg Documented by: JOY Polyethylene Glycol (Miralax) 17 gm PO DAILY [facility] Last Admin: 07/25/20 09:07 Dose: 17 gm Documented by: JESSICA Scopolamine (Transderm-Scop) 1.5 mg TRDERM ONARRIVE [facility] Last Admin: 07/24/20 07:14 Dose: 1.5 mg Documented by: GILDARDO Simvastatin (Zocor) 40 mg PO BEDTIME [facility] Last Admin: 07/24/20 21:22 Dose: 40 mg Documented by: MONTSE Sodium Chloride (Saline Flush) 10 ml FLUSH ASDIRECTED PRN PRN Reason: Keep Vein Open Sodium Chloride (Saline Flush) 2.5 ml FLUSH ASDIRECTED PRN PRN Reason: Keep Vein Open Last Admin: 07/25/20 01:02 Dose: 2.5 ml Documented by: Admin: 07/24/20 21:22 Dose: 2.5 ml Documented by: MONTSE Tramadol HCl (Ultram) 50 - 100 mg PO Q6H PRN PRN Reason: Pain - Assessment Assessment (Free Text/Narrative):: s/p RIGHT TKA - Plan Plan (Free Text/Narrative):: Along with pain relief, he continues to experience weakness in his right thigh secondary to femoral nerve block. He has not been able to ambulate with staff, and therefore do not expect discharge home today. Reassurance provided to Braydon and he will call for staff assistance with transfers and participate in PT today, and be reassessed tomorrow for discharge home, as he lives home alone, with need to show independent ambulation for his safety. Otherwise, he is doing well. Afebrile. Tolerating food/fluids. Hg stable at 13.2. Pain controlled and tolerating narcotic medication. ASA was started yesterday for DVT prophylaxis. 2 additional doses of Ancef were given overnight. Continue hospitalist services for medical management.
--- NOTE | 2020-07-25 12:30 | CR ---
Indication: Hypoxia Technique: Chest 1 view Comparison: May 30, 2020 Findings/Impression: Stable cardiac size. New, 1.5 x 3.8 cm oval opacity at the right lung base. Consider chest CT for further evaluation. The pleural spaces are clear. Normal pulmonary vasculature. No acute osseous abnormality. Dictated by Josselyn Thompson MD @ Jul 25 2020 12:26PM Signed by Dr. Josselyn Thompson @ Jul 25 2020 12:29PM
--- NOTE | 2020-07-25 13:32 | PCM.CONSN ---
- General Info Date of Service: 07/25/20 Admission Dx/Problem (Free Text): Admission Diagnosis/Problem Admission Diagnosis/Problem Knee pain s/p RIGHT TOTAL KNEE ARTHROPLASTY Subjective Update: Reports no pain this morning. Denies any chest pain shortness of breath or palpitations. Reports knee is tolerable. No fevers or chills. Noted to be on oxygen still postoperatively. Counseled on I-S use and given this during interview. Denies any cough or productive sputum. Oxygen saturations on room air dipped to 86%. Functional Status: Reports: Pain Controlled, Tolerating Diet, Urinating. Denies: Ambulating - Review of Systems General: Reports: No Symptoms. Denies: Weakness, Fatigue, Malaise HEENT: Reports: No Symptoms. Denies: Headaches, Visual Changes Pulmonary: Reports: No Symptoms. Denies: Shortness of Breath, Cough, Sputum Cardiovascular: Reports: No Symptoms. Denies: Chest Pain Gastrointestinal: Reports: No Symptoms. Denies: Abdominal Pain, Nausea, Vomiting Genitourinary: Reports: No Symptoms Musculoskeletal: Reports: Joint Pain (Mild knee pain.) Skin: Reports: No Symptoms Neurological: Reports: No Symptoms Psychiatric: Reports: No Symptoms - Patient Data Vitals - Most Recent: Last Vital Signs Temp 98 F 07/25/20 08:50 Pulse 74 07/25/20 08:50 Resp 18 07/25/20 08:50 BP 117/77 07/25/20 08:48 Pulse Ox 95 07/25/20 08:50 Weight - Most Recent: 113.398 kg I&O - Last 24 Hours: Intake & Output 07/24/20 07/25/20 07/25/20 22:59 06:59 14:59 Intake Total 1212 50 Balance 1212 50 Lab Results Last 24 Hours: Laboratory Results - last 24 hr 07/24/20 07/25/20 07/25/20 Range/Units 17:16 05:55 05:55 Hgb 13.2 (13.0-17.0) g/dL Hct 41.3 (38.0-50.0) % Sodium 136 (136-148) mmol/L Potassium 5.3 H (3.5-5.1) mmol/L Chloride 102 (98-107) mmol/L Carbon Dioxide 28.5 (21.0-32.0) mmol/L BUN 21 H (7.0-18.0) mg/dL Creatinine 1.6 H (0.8-1.3) mg/dL Est Cr Clr Drug Dosing 49.17 mL/min Estimated GFR (MDRD) 43.3 ml/min Glucose 176 H (74-106) mg/dL POC Glucose 152 H (60-110) mg/dL Calcium 8.2 L (8.5-10.1) mg/dL Magnesium 1.7 L (1.8-2.4) mg/dL 07/25/20 07/25/20 07/25/20 Range/Units 06:12 09:00 11:29 Hgb (13.0-17.0) g/dL Hct (38.0-50.0) % Sodium (136-148) mmol/L Potassium (3.5-5.1) mmol/L Chloride (98-107) mmol/L Carbon Dioxide (21.0-32.0) mmol/L BUN (7.0-18.0) mg/dL Creatinine (0.8-1.3) mg/dL Est Cr Clr Drug Dosing mL/min Estimated GFR (MDRD) ml/min Glucose (74-106) mg/dL POC Glucose 175 H 150 H 191 H (60-110) mg/dL Calcium (8.5-10.1) mg/dL Magnesium (1.8-2.4) mg/dL Med Orders - Current: Current Medications Acetaminophen (Tylenol) 650 mg PO Q6H PRN PRN Reason: Pain Al Hydroxide/Mg Hydroxide (Mag-Al Plus) 30 ml PO Q4H PRN PRN Reason: Indigestion Amlodipine Besylate (Norvasc) [address] [facility] Last Admin: 07/25/20 08:48 Dose: 10 mg Documented by: Aspirin (Aspirin) [address] [facility] Last Admin: 07/25/20 09:07 Dose: 325 mg Documented by: Bisacodyl (Dulcolax) 10 mg RECTAL DAILY PRN PRN Reason: Constipation Dextrose/Water (Dextrose 50% In Water) 50 ml IV ASDIRECTED PRN PRN Reason: Hypoglycemia Diphenhydramine HCl (Benadryl) 25 - 50 mg PO Q6H PRN PRN Reason: Itching Docusate Sodium (Colace) 100 mg PO BID PRN PRN Reason: Constipation Famotidine (Pepcid) [address] [facility] Last Admin: 07/24/20 07:16 Dose: 40 mg Documented by: Famotidine (Pepcid) [address] [facility] Last Admin: 07/25/20 08:40 Dose: 40 mg Documented by: Glucagon (Glucagen) 1 mg IM ASDIRECTED PRN PRN Reason: Hypoglycemia Ropivacaine 49.25 ml/Ketorolac Tromethamine 30 mg/Epinephrine HCl 0.5 mg/Clonidine HCl 80 mcg/ Sodium Chloride 75 mls @ 50 mls/sec INJECT ASDIRECTED [facility] Cefazolin Sodium/Dextrose 2 gm (/ Premix) 50 mls @ 100 mls/hr IV ONCALL [facility] Lactated Ringer's (Ringers, Lactated) 1,000 mls @ 100 mls/hr IV ASDIRECTED [facility] Last Admin: 07/24/20 11:48 Dose: 100 mls/hr Documented by: Insulin Aspart (Novolog) [address] [facility]; Protocol Last Admin: 07/25/20 12:15 Dose: 1 unit Documented by: Losartan Potassium (Cozaar) [address] [facility] Last Admin: 07/25/20 08:48 Dose: 50 mg Documented by: Morphine Sulfate (Morphine) 1 - 2 mg IVPUSH Q3H PRN PRN Reason: Pain Ondansetron HCl (Zofran) 4 mg IVPUSH Q6H PRN PRN Reason: Nausea/Vomiting Oxycodone HCl (Oxycodone) 5 - 10 mg PO Q4H PRN PRN Reason: Pain Last Admin: 07/25/20 09:06 Dose: 5 mg Documented by: Polyethylene Glycol (Miralax) [address] [facility] Last Admin: 07/25/20 09:07 Dose: 17 gm Documented by: Scopolamine (Transderm-Scop) 1.[address] [facility] Last Admin: 07/24/20 07:14 Dose: 1.5 mg Documented by: Simvastatin (Zocor) [address] [facility] Last Admin: 07/24/20 21:22 Dose: 40 mg Documented by: Sodium Chloride (Saline Flush) 10 ml FLUSH ASDIRECTED PRN PRN Reason: Keep Vein Open Sodium Chloride (Saline Flush) 2.5 ml FLUSH ASDIRECTED PRN PRN Reason: Keep Vein Open Last Admin: 07/25/20 01:02 Dose: 2.5 ml Documented by: Tramadol HCl (Ultram) 50 - 100 mg PO Q6H PRN PRN Reason: Pain Discontinued Medications Aspirin (Aspirin) 81 mg PO ONETIME ONE Stop: 07/24/20 07:56 Last Admin: 07/24/20 08:02 Dose: 324 mg Documented by: Aspirin (Aspirin) Confirm Administered Dose 325 mg .ROUTE .STK-MED ONE Stop: 07/25/20 08:56 Last Admin: 07/25/20 09:06 Dose: Not Given Documented by: Bupivacaine HCl (Sensorcaine-Mpf 0.25%) Confirm Administered Dose 30 ml .ROUTE .STK-MED ONE Stop: 07/24/20 07:40 Cefazolin Sodium (Ancef) Confirm Administered Dose 2 gm .ROUTE .STK-MED ONE Stop: 07/24/20 06:55 Cefazolin Sodium (Ancef) Confirm Administered Dose 1 gm .ROUTE .STK-MED ONE Stop: 07/24/20 08:29 Ephedrine Sulfate (Ephedrine Sulfate) Confirm Administered Dose 50 mg .ROUTE .STK-MED ONE Stop: 07/24/20 08:43 Fentanyl (Sublimaze) Confirm Administered Dose 100 mcg .ROUTE .STK-MED ONE Stop: 07/24/20 09:38 Glycopyrrolate (Robinul) Confirm Administered Dose 0.2 mg .ROUTE .STK-MED ONE Stop: 07/24/20 10:11 Tranexamic Acid 1,000 mg/ (Sodium Chloride) 110 mls @ 600 mls/hr IV ASDIRECTED ONE Stop: 07/24/20 08:10 Sodium Chloride (Normal Saline) Confirm Administered Dose 20 mls @ as directed .ROUTE .STK-MED ONE Stop: 07/24/20 06:55 Cefazolin Sodium/Dextrose 2 gm (/ Premix) 50 mls @ 100 mls/hr IV Q8H [facility] Stop: 07/25/20 01:29 Last Admin: 07/25/20 01:06 Dose: 100 mls/hr Documented by: Magnesium Sulfate (Magnesium Sulfate In Water 2 Gm/50 Ml) 2 gm in 50 mls @ 50 mls/hr IV ONETIME ONE Stop: 07/25/20 09:08 Last Admin: 07/25/20 08:45 Dose: 50 mls/hr Documented by: Lidocaine (Xylocaine-Mpf 2%) Confirm Administered Dose 5 ml .ROUTE .STK-MED ONE Stop: 07/24/20 06:53 Lidocaine HCl (Xylocaine-Mpf 1%) Confirm Administered Dose 5 ml .ROUTE .STK-MED ONE Stop: 07/24/20 08:43 Midazolam HCl (Versed 1 Mg/Ml) Confirm Administered Dose 2 mg .ROUTE .STK-MED ONE Stop: 07/24/20 07:09 Ondansetron HCl (Zofran) Confirm Administered Dose 4 mg .ROUTE .STK-MED ONE Stop: 07/24/20 06:53 Propofol (Diprivan 20 Ml) Confirm Administered Dose 400 mg .ROUTE .STK-MED ONE Stop: 07/24/20 06:54 Propofol (Diprivan 20 Ml) Confirm Administered Dose 200 mg .ROUTE .STK-MED ONE Stop: 07/24/20 09:47 Tranexamic Acid (Cyklokapron) Confirm Administered Dose 2,000 mg .ROUTE .STK-MED ONE Stop: 07/24/20 08:08 - Exam Quality Assessment: Supplemental Oxygen (2 L), DVT Prophylaxis General: Alert, Oriented, No Acute Distress Neck: Supple Lungs: Clear to Auscultation, Normal Respiratory Effort Cardiovascular: Regular Rate, Regular Rhythm GI/Abdominal Exam: Normal Bowel Sounds, Soft, Non-Tender Extremities: Normal Inspection, Normal Range of Motion, Non-Tender, No Pedal Edema Neurological: No New Focal Deficit Psy/Mental Status: Alert, Normal Affect, Normal Mood Sepsis Event Note - Evaluation Sepsis Screening Result: No Definite Risk - Focused Exam Vital Signs: Vital Signs Temp Pulse Resp BP BP Pulse Ox 07/25/20 08:50 98 F 74 18 95 07/25/20 08:48 117/77 07/25/20 05:00 97.5 F 69 20 136/79 93 L Consult PN Assessment/Plan POD#: 1 Procedures: Procedures ASSAY OF AMYLASE (06/03/17) ASSAY OF LIPASE (06/03/17) COMPLETE CBC W/AUTO DIFF WBC (02/13/19) COMPREHEN METABOLIC PANEL (02/13/19) CT ABD & PELVIS W/O CONTRAST (06/03/17) DRESS/DEBRID P-THICK BURN S (10/04/17) ECHO EXAM OF ABDOMEN (06/03/17) EGD BIOPSY SINGLE/MULTIPLE (06/24/17) EGD DIAGNOSTIC BRUSH WASH (09/02/17) ELECTROCARDIOGRAM TRACING (06/03/17) EMERGENCY DEPT VISIT (07/31/19) EMERGENCY DEPT VISIT (02/13/19) EMERGENCY DEPT VISIT (07/07/18) EMERGENCY DEPT VISIT (06/03/17) EXTREMITY STUDY (02/13/19) GLUCOSE BLOOD TEST (09/02/17) GLYCOSYLATED HEMOGLOBIN TEST (02/13/19) HELICOBACTER PYLORI ANTIBODY (06/03/17) HYDRATE IV INFUSION ADD-ON (06/03/17) IMMUNIZATION ADMIN (10/04/17) LAPAROSCOPIC CHOLECYSTECTOMY (09/14/17) MRI ABDOMEN W/O & W/DYE (06/03/17) PROTHROMBIN TIME (02/13/19) ROUTINE VENIPUNCTURE (02/13/19) RPR S/N/AX/GEN/TRNK2.6-7.5CM (07/07/18) TDAP VACCINE 7 YRS/> IM (10/04/17) THER/PROPH/DIAG INJ IV PUSH (06/03/17) THER/PROPH/DIAG INJ SC/IM (02/13/19) THROMBOPLASTIN TIME PARTIAL (02/13/19) URINALYSIS AUTO W/SCOPE (07/31/19) URINE CULTURE/COLONY COUNT (06/03/17) X-RAY EXAM KNEE 4 OR MORE (06/06/20) X-RAY EXAM OF FINGER(S) (07/07/18) X-RAY EXAM OF LOWER LEG (02/13/19) X-RAY EXAM UNILAT RIBS/CHEST (07/31/19) (1) S/P total knee arthroplasty SNOMED Code(s): 5967775498920, 385344126, 4378040269668 Code(s): Z96.659 - PRESENCE OF UNSPECIFIED ARTIFICIAL KNEE JOINT Current Visit: Yes Qualifiers: Laterality: right Qualified Code(s): Z96.651 - Presence of right artificial knee joint (2) History of duodenal ulcer SNOMED Code(s): 724431972 Code(s): Z87.19 - PERSONAL HISTORY OF OTHER DISEASES OF THE DIGESTIVE SYSTEM Current Visit: Yes (3) HTN (hypertension) SNOMED Code(s): 58205280 Code(s): I10 - ESSENTIAL (PRIMARY) HYPERTENSION Current Visit: Yes Qualifiers: Hypertension type: essential hypertension Qualified Code(s): I10 - Essential (primary) hypertension (4) HLD (hyperlipidemia) SNOMED Code(s): 86860493 Code(s): E78.5 - HYPERLIPIDEMIA, UNSPECIFIED Current Visit: Yes (5) CKD (chronic kidney disease) SNOMED Code(s): 912727065 Code(s): N18.9 - CHRONIC KIDNEY DISEASE, UNSPECIFIED Current Visit: Yes (6) History of type 2 diabetes mellitus SNOMED Code(s): 396513945 Code(s): Z86.39 - PERSONAL HISTORY OF ENDO, NUTRITIONAL AND METABOLIC DISEASE Current Visit: No Problem List Initiated/Reviewed/Updated: Yes My Orders Last 24 Hours: My Active Orders 07/24/20 21:00 Simvastatin [Zocor] 40 mg PO BEDTIME 07/25/20 09:00 Losartan [Cozaar] 50 mg PO DAILY amLODIPine [Norvasc] 10 mg PO DAILY Plan: This 65-year-old male admitted with right TKA. Hospitalist service consulted for medical management of comorbidities postoperatively. 1. S/p total right knee arthroplasty -Orders per orthopedics -ASA daily for VTE prophylaxis -Mild hypoxia noted during rounds today chest x-ray obtained which is negative for any cardiopulmonary process. Encouraged I-S use every 1 hour. -Oxygen saturations with physical therapy were noted to be 96% on room air but at rest he did dip down to low 90s and 88% when he laid back and rested. Will refer for sleep study as an outpatient. 2. HTN -Stable, continue amlodipine and losartan 3. DM type II -Stable A1c 7.4 -Hold oral medications during hospitalization may restart upon discharge -NovoLog sliding scale insulin with meals -3 times daily AC blood sugars 4. CKD: -Avoid nephrotoxic medications -BUN/creatinine 26 and 1.7 which is near baseline -Monitor daily VTE prophylaxis: SCDs and ASA GI prophylaxis: Pepcid CODE STATUS: Full code
[2020-07-25] MEDS: Simvastatin 40 MG Tab PO SCH (20:15)
[2020-07-26 06:16] LABS: CARBON DIOXIDE,CO2 28.5 mmol/L (21.0-32.0); POTASSIUM,K 4.7 mmol/L (3.5-5.1)
[2020-07-26] MEDS: oxyCODONE 5 MG Tab PO PRN (06:44)
[2020-07-26] MEDS: Insulin Aspart 100 Units/ML 3 ML Pen SUBCUT SCH ×2 (07:00→12:26)
[2020-07-26] MEDS: Famotidine 20 MG Tab PO SCH (08:43)
[2020-07-26] MEDS: Aspirin 325 MG Tab PO SCH (08:44)
[2020-07-26] MEDS: amLODIPine 5 MG Tab PO SCH (08:47)
[2020-07-26] MEDS: Losartan 50 MG Tab PO SCH (08:47)
[2020-07-26] MEDS: Polyethylene Glycol 3350 Powder 17 GM Packet PO SCH (08:47)
--- NOTE | 2020-07-26 08:53 | PCM.CONSN ---
- General Info Date of Service: 07/26/20 Admission Dx/Problem (Free Text): Admission Diagnosis/Problem Admission Diagnosis/Problem Knee pain s/p RIGHT TOTAL KNEE ARTHROPLASTY Subjective Update: Reports no pain this morning. Denies any chest pain shortness of breath or palpitations. Reports knee is tolerable. No fevers or chills. Sitting up in the chair. Saturations are good on room air now. It appears intermittently he does drop at night with sleep. He will encouraged to get sleep study. He will discuss this with PCP. Functional Status: Reports: Pain Controlled, Tolerating Diet, Ambulating, Urinating - Review of Systems General: Reports: No Symptoms. Denies: Fatigue, Malaise HEENT: Reports: No Symptoms. Denies: Headaches, Sore Throat Pulmonary: Reports: No Symptoms. Denies: Shortness of Breath, Cough, Sputum Cardiovascular: Reports: No Symptoms. Denies: Chest Pain Gastrointestinal: Reports: No Symptoms. Denies: Abdominal Pain, Nausea, Vomiting Genitourinary: Reports: No Symptoms Musculoskeletal: Reports: Joint Pain (Knee pain) Skin: Reports: No Symptoms Neurological: Reports: No Symptoms. Denies: Confusion Psychiatric: Reports: No Symptoms. Denies: Confusion - Patient Data Vitals - Most Recent: Last Vital Signs Temp 98.3 F 07/26/20 08:00 Pulse 85 07/26/20 08:00 Resp 18 07/26/20 08:00 BP 121/67 07/26/20 08:47 Pulse Ox 93 L 07/26/20 08:00 Weight - Most Recent: 113.398 kg I&O - Last 24 Hours: Intake & Output 07/25/20 07/26/20 07/26/20 22:59 06:59 14:59 Intake Total 736 680 Output Total 800 960 Balance -64 -280 Lab Results Last 24 Hours: Laboratory Results - last 24 hr 07/24/20 07/25/20 07/25/20 Range/Units 06:51 09:00 11:29 Hgb (13.0-17.0) g/dL Hct (38.0-50.0) % Sodium (136-148) mmol/L Potassium (3.5-5.1) mmol/L Chloride (98-107) mmol/L Carbon Dioxide (21.0-32.0) mmol/L BUN (7.0-18.0) mg/dL Creatinine (0.8-1.3) mg/dL Est Cr Clr Drug Dosing mL/min Estimated GFR (MDRD) ml/min Glucose (74-106) mg/dL POC Glucose 158 H 150 H 191 H (60-110) mg/dL Calcium (8.5-10.1) mg/dL Magnesium (1.8-2.4) mg/dL 07/25/20 07/25/20 07/26/20 Range/Units 13:37 17:01 05:55 Hgb 12.9 L (13.0-17.0) g/dL Hct 39.0 (38.0-50.0) % Sodium (136-148) mmol/L Potassium (3.5-5.1) mmol/L Chloride (98-107) mmol/L Carbon Dioxide (21.0-32.0) mmol/L BUN (7.0-18.0) mg/dL Creatinine (0.8-1.3) mg/dL Est Cr Clr Drug Dosing mL/min Estimated GFR (MDRD) ml/min Glucose (74-106) mg/dL POC Glucose 174 H 161 H (60-110) mg/dL Calcium (8.5-10.1) mg/dL Magnesium (1.8-2.4) mg/dL 07/26/20 07/26/20 Range/Units 05:55 06:40 Hgb (13.0-17.0) g/dL Hct (38.0-50.0) % Sodium 134 L (136-148) mmol/L Potassium 4.7 (3.5-5.1) mmol/L Chloride 100 (98-107) mmol/L Carbon Dioxide 28.5 (21.0-32.0) mmol/L BUN 24 H (7.0-18.0) mg/dL Creatinine 1.7 H (0.8-1.3) mg/dL Est Cr Clr Drug Dosing 46.28 mL/min Estimated GFR (MDRD) 40.4 ml/min Glucose 150 H (74-106) mg/dL POC Glucose 144 H (60-110) mg/dL Calcium 8.4 L (8.5-10.1) mg/dL Magnesium 2.0 (1.8-2.4) mg/dL Med Orders - Current: Current Medications Acetaminophen (Tylenol) 650 mg PO Q6H PRN PRN Reason: Pain Last Admin: 07/25/20 13:54 Dose: 650 mg Documented by: Al Hydroxide/Mg Hydroxide (Mag-Al Plus) 30 ml PO Q4H PRN PRN Reason: Indigestion Amlodipine Besylate (Norvasc) 10 mg PO DAILY [facility] Last Admin: 07/26/20 08:47 Dose: 10 mg Documented by: Aspirin (Aspirin) 325 mg PO DAILY [facility] Last Admin: 07/26/20 08:44 Dose: 325 mg Documented by: Bisacodyl (Dulcolax) 10 mg RECTAL DAILY PRN PRN Reason: Constipation Dextrose/Water (Dextrose 50% In Water) 50 ml IV ASDIRECTED PRN PRN Reason: Hypoglycemia Diphenhydramine HCl (Benadryl) 25 - 50 mg PO Q6H PRN PRN Reason: Itching Docusate Sodium (Colace) 100 mg PO BID PRN PRN Reason: Constipation Famotidine (Pepcid) 40 mg PO ACBREAKFAST [facility] Last Admin: 07/26/20 08:43 Dose: 40 mg Documented by: Glucagon (Glucagen) 1 mg IM ASDIRECTED PRN PRN Reason: Hypoglycemia Ropivacaine 49.25 ml/Ketorolac Tromethamine 30 mg/Epinephrine HCl 0.5 mg/Clonidine HCl 80 mcg/ Sodium Chloride 75 mls @ 50 mls/sec INJECT ASDIRECTED [facility] Cefazolin Sodium/Dextrose 2 gm (/ Premix) 50 mls @ 100 mls/hr IV ONCALL [facility] Lactated Ringer's (Ringers, Lactated) 1,000 mls @ 100 mls/hr IV ASDIRECTED [facility] Last Admin: 07/24/20 11:48 Dose: 100 mls/hr Documented by: Insulin Aspart (Novolog) 0 unit SUBCUT TIDAC [facility]; Protocol Last Admin: 07/26/20 07:00 Dose: Not Given Documented by: Losartan Potassium (Cozaar) 50 mg PO DAILY [facility] Last Admin: 07/26/20 08:47 Dose: 50 mg Documented by: Morphine Sulfate (Morphine) 1 - 2 mg IVPUSH Q3H PRN PRN Reason: Pain Last Admin: 07/25/20 23:31 Dose: 2 mg Documented by: Ondansetron HCl (Zofran) 4 mg IVPUSH Q6H PRN PRN Reason: Nausea/Vomiting Oxycodone HCl (Oxycodone) 5 - 10 mg PO Q4H PRN PRN Reason: Pain Last Admin: 07/26/20 06:44 Dose: 10 mg Documented by: Polyethylene Glycol (Miralax) 17 gm PO DAILY [facility] Last Admin: 07/26/20 08:47 Dose: 17 gm Documented by: Scopolamine (Transderm-Scop) 1.5 mg TRDERM ONARRIVE [facility] Last Admin: 07/24/20 07:14 Dose: 1.5 mg Documented by: Simvastatin (Zocor) 40 mg PO BEDTIME [facility] Last Admin: 07/25/20 20:15 Dose: 40 mg Documented by: Sodium Chloride (Saline Flush) 10 ml FLUSH ASDIRECTED PRN PRN Reason: Keep Vein Open Sodium Chloride (Saline Flush) 2.5 ml FLUSH ASDIRECTED PRN PRN Reason: Keep Vein Open Last Admin: 07/25/20 01:02 Dose: 2.5 ml Documented by: Tramadol HCl (Ultram) 50 - 100 mg PO Q6H PRN PRN Reason: Pain Last Admin: 07/25/20 15:31 Dose: 50 mg Documented by: Discontinued Medications Aspirin (Aspirin) 81 mg PO ONETIME ONE Stop: 07/24/20 07:56 Last Admin: 07/24/20 08:02 Dose: 324 mg Documented by: Aspirin (Aspirin) Confirm Administered Dose 325 mg .ROUTE .STK-MED ONE Stop: 07/25/20 08:56 Last Admin: 07/25/20 09:06 Dose: Not Given Documented by: Bupivacaine HCl (Sensorcaine-Mpf 0.25%) Confirm Administered Dose 30 ml .ROUTE .STK-MED ONE Stop: 07/24/20 07:40 Cefazolin Sodium (Ancef) Confirm Administered Dose 2 gm .ROUTE .STK-MED ONE Stop: 07/24/20 06:55 Cefazolin Sodium (Ancef) Confirm Administered Dose 1 gm .ROUTE .STK-MED ONE Stop: 07/24/20 08:29 Ephedrine Sulfate (Ephedrine Sulfate) Confirm Administered Dose 50 mg .ROUTE .STK-MED ONE Stop: 07/24/20 08:43 Famotidine (Pepcid) 40 mg IVPUSH ONARRIVE [facility] Last Admin: 07/24/20 07:16 Dose: 40 mg Documented by: Fentanyl (Sublimaze) Confirm Administered Dose 100 mcg .ROUTE .STK-MED ONE Stop: 07/24/20 09:38 Glycopyrrolate (Robinul) Confirm Administered Dose 0.2 mg .ROUTE .STK-MED ONE Stop: 07/24/20 10:11 Tranexamic Acid 1,000 mg/ (Sodium Chloride) 110 mls @ 600 mls/hr IV ASDIRECTED ONE Stop: 07/24/20 08:10 Last Admin: 07/25/20 19:27 Dose: Not Given Documented by: Sodium Chloride (Normal Saline) Confirm Administered Dose 20 mls @ as directed .ROUTE .STK-MED ONE Stop: 07/24/20 06:55 Cefazolin Sodium/Dextrose 2 gm (/ Premix) 50 mls @ 100 mls/hr IV Q8H [facility] Stop: 07/25/20 01:29 Last Admin: 07/25/20 01:06 Dose: 100 mls/hr Documented by: Magnesium Sulfate (Magnesium Sulfate In Water 2 Gm/50 Ml) 2 gm in 50 mls @ 50 mls/hr IV ONETIME ONE Stop: 07/25/20 09:08 Last Admin: 07/25/20 08:45 Dose: 50 mls/hr Documented by: Lidocaine (Xylocaine-Mpf 2%) Confirm Administered Dose 5 ml .ROUTE .STK-MED ONE Stop: 07/24/20 06:53 Lidocaine HCl (Xylocaine-Mpf 1%) Confirm Administered Dose 5 ml .ROUTE .STK-MED ONE Stop: 07/24/20 08:43 Midazolam HCl (Versed 1 Mg/Ml) Confirm Administered Dose 2 mg .ROUTE .STK-MED ONE Stop: 07/24/20 07:09 Ondansetron HCl (Zofran) Confirm Administered Dose 4 mg .ROUTE .STK-MED ONE Stop: 07/24/20 06:53 Propofol (Diprivan 20 Ml) Confirm Administered Dose 400 mg .ROUTE .STK-MED ONE Stop: 07/24/20 06:54 Propofol (Diprivan 20 Ml) Confirm Administered Dose 200 mg .ROUTE .STK-MED ONE Stop: 07/24/20 09:47 Tranexamic Acid (Cyklokapron) Confirm Administered Dose 2,000 mg .ROUTE .STK-MED ONE Stop: 07/24/20 08:08 - Exam Quality Assessment: DVT Prophylaxis. No: Supplemental Oxygen General: Alert, Oriented, Cooperative, No Acute Distress Neck: Supple Lungs: Clear to Auscultation, Normal Respiratory Effort Cardiovascular: Regular Rate, Regular Rhythm GI/Abdominal Exam: Normal Bowel Sounds, Soft, Non-Tender Extremities: Normal Inspection, Normal Range of Motion, Non-Tender, No Pedal Edema Wound/Incisions: Dressing Dry and Intact, No Drainage Psy/Mental Status: Alert, Normal Affect, Normal Mood Sepsis Event Note - Evaluation Sepsis Screening Result: No Definite Risk - Focused Exam Vital Signs: Vital Signs Temp Pulse Resp BP BP Pulse Ox 07/26/20 08:47 121/67 07/26/20 08:00 98.3 F 85 18 121/67 93 L 07/26/20 04:00 98.2 F 75 18 118/75 91 L Consult PN Assessment/Plan POD#: 2 Procedures: Procedures ASSAY OF AMYLASE (06/03/17) ASSAY OF LIPASE (06/03/17) COMPLETE CBC W/AUTO DIFF WBC (02/13/19) COMPREHEN METABOLIC PANEL (02/13/19) CT ABD & PELVIS W/O CONTRAST (06/03/17) DRESS/DEBRID P-THICK BURN S (10/04/17) ECHO EXAM OF ABDOMEN (06/03/17) EGD BIOPSY SINGLE/MULTIPLE (06/24/17) EGD DIAGNOSTIC BRUSH WASH (09/02/17) ELECTROCARDIOGRAM TRACING (06/03/17) EMERGENCY DEPT VISIT (07/31/19) EMERGENCY DEPT VISIT (02/13/19) EMERGENCY DEPT VISIT (07/07/18) EMERGENCY DEPT VISIT (06/03/17) EXTREMITY STUDY (02/13/19) GLUCOSE BLOOD TEST (09/02/17) GLYCOSYLATED HEMOGLOBIN TEST (02/13/19) HELICOBACTER PYLORI ANTIBODY (06/03/17) HYDRATE IV INFUSION ADD-ON (06/03/17) IMMUNIZATION ADMIN (10/04/17) LAPAROSCOPIC CHOLECYSTECTOMY (09/14/17) MRI ABDOMEN W/O & W/DYE (06/03/17) PROTHROMBIN TIME (02/13/19) ROUTINE VENIPUNCTURE (02/13/19) RPR S/N/AX/GEN/TRNK2.6-7.5CM (07/07/18) TDAP VACCINE 7 YRS/> IM (10/04/17) THER/PROPH/DIAG INJ IV PUSH (06/03/17) THER/PROPH/DIAG INJ SC/IM (02/13/19) THROMBOPLASTIN TIME PARTIAL (02/13/19) URINALYSIS AUTO W/SCOPE (07/31/19) URINE CULTURE/COLONY COUNT (06/03/17) X-RAY EXAM KNEE 4 OR MORE (06/06/20) X-RAY EXAM OF FINGER(S) (07/07/18) X-RAY EXAM OF LOWER LEG (02/13/19) X-RAY EXAM UNILAT RIBS/CHEST (07/31/19) (1) S/P total knee arthroplasty SNOMED Code(s): 4116224417359, 792491348, 3469618124615 Code(s): Z96.659 - PRESENCE OF UNSPECIFIED ARTIFICIAL KNEE JOINT Current Visit: Yes Qualifiers: Laterality: right Qualified Code(s): Z96.651 - Presence of right artificial knee joint (2) History of duodenal ulcer SNOMED Code(s): 387875792 Code(s): Z87.19 - PERSONAL HISTORY OF OTHER DISEASES OF THE DIGESTIVE SYSTEM Current Visit: Yes (3) HTN (hypertension) SNOMED Code(s): 90101277 Code(s): I10 - ESSENTIAL (PRIMARY) HYPERTENSION Current Visit: Yes Qualifiers: Hypertension type: essential hypertension Qualified Code(s): I10 - Essential (primary) hypertension (4) HLD (hyperlipidemia) SNOMED Code(s): 80472027 Code(s): E78.5 - HYPERLIPIDEMIA, UNSPECIFIED Current Visit: Yes (5) CKD (chronic kidney disease) SNOMED Code(s): 939127720 Code(s): N18.9 - CHRONIC KIDNEY DISEASE, UNSPECIFIED Current Visit: Yes (6) History of type 2 diabetes mellitus SNOMED Code(s): 708051939 Code(s): Z86.39 - PERSONAL HISTORY OF ENDO, NUTRITIONAL AND METABOLIC DISEASE Current Visit: No Problem List Initiated/Reviewed/Updated: Yes My Orders Last 24 Hours: My Active Orders 07/25/20 09:00 Losartan [Cozaar] 50 mg PO DAILY amLODIPine [Norvasc] 10 mg PO DAILY 07/27/20 05:11 BASIC METABOLIC PANEL,BMP [CHEM] AM 07/28/20 05:11 BASIC METABOLIC PANEL,BMP [CHEM] AM Plan: This 65-year-old male admitted with right TKA. Hospitalist service consulted for medical management of comorbidities postoperatively. 1. S/p total right knee arthroplasty -Orders per orthopedics -ASA daily for VTE prophylaxis -Chest x-ray negative. Oxygen saturations have improved with I-S use. It is noted intermittent hypoxia with sleep. Will recommend outpatient sleep study he will discuss this with PCP. 2. HTN -Stable, continue amlodipine and losartan 3. DM type II -Stable A1c 7.4 -Hold oral medications during hospitalization may restart upon discharge -NovoLog sliding scale insulin with meals -3 times daily AC blood sugars 4. CKD: -Avoid nephrotoxic medications -BUN/creatinine at baseline -Monitor daily VTE prophylaxis: SCDs and ASA GI prophylaxis: Pepcid CODE STATUS: Full code
--- NOTE | 2020-07-26 09:21 | PCM.DCSUM1 ---
Discharge Summary - Hospital Course Free Text/Narrative:: Braydon underwent RIGHT TOTAL KNEE ARTHROPLASTY 07/24/[address] Ke Barker. Admitted to Med/Surg for postoperative care and PT. HOSPITAL COURSE: Hospitalist services consulted for medical management of his HTN, DM, CKD and risk for NANETTE. Afebrile during hospital stay. No acute N/V, and tolerated food/fluids and oral narcotics. Pain was controlled with oral oxycodone. He also received a femoral nerve block, which had prolonged pain relief thru POD#1 afternoon. He did sustain a fall when attempting to ambulate day of surgery, secondary to leg weakness from the nerve block. Diligent use of polar care ice, resulting in minimal soft tissue swelling and ef fective pain management. Surgical dressing was CDI POD#1, removed POD#2 and large AquaCell bandage was applied. Incision approximated with no surrounding erythema or active drainage. DVT prophylaxis : ASA 325mg daily, bilateral SCDs, and compression stockings. Hg stable 13.2 and 12.9 Afternoon of POD#1, he was ambulating in his room with staff standby and his walker. POD#2, he reports feeling ready to be discharged home. DISCHARGE MEDICATIONS: 1) oxycodone 2) tylenol 3) ASA 325mg daily for 90 days for DVT prophylaxis 4) Miralax and colace to prevent constipation 5) previous home medications DISCHARGE ORDERS: He will start PT at [facility] next week. Use walker when ambulating. Next appt in 2 weeks at ortho clinic. Wear compression stockings on am/off hs. No driving for 6 weeks. He has arrangement for transportation to outpatient therapy. [facility] paperwork had been completed by Dr. Barker. An AquaCell dressing will be sent home with him, directed to change in 1 week. Braydon had no additional questions, instructed to call ortho clinic with concerns. - Discharge Data Discharge Date: 07/26/20 Discharge Disposition: Home, Self-Care 01 Condition: Good - Referral to Home Health Primary Care Physician: Denver Carrera MD - Patient Summary/Data Operative Procedure(s) Performed: Right total knee replacement Consults: Consultations 07/24/20 10:42 Consult to Physician [CONS] Routine PT Evaluation and Treatment [CONS] Routine - Patient Instructions Diet: Regular Diet as Tolerated (DIABETIC DIET) Activity: Apply Ice (USE POLAR CARE ICE PAD OFTEN TO MINIMIZE SWELLING AND DECREASE PAIN), Cough & Deep Breathe (USE INCENTIVE SPIROMETER EVERY 2 HOURS DURING THE DAY), Elevate Extremity (WHEN ELEVATING LEG, PLACE PILLOW UNDER YOUR HEEL. PLEASE DO NOT PLACE PILLOW UNDER YOUR KNEE), Full Weight Bearing, No Strenuous Activities Activity, Other: USE WALKER WHEN AMBULATING Driving: Do Not Drive Driving, Other: NO DRIVING UNTIL CLEARED BY DR. BARKER AT YOUR 6 WEEK APPOINTMENT Showering/Bathing: May Shower, No Tub Bathing/Swimming Showering/Bathing, Other: YOU DO NOT NEED TO COVER AQUACELL BANDAGE WHEN SHOWERING. Notify Provider of: Fever, Increased Pain, Swelling and Redness, Drainage Other/Special Instructions: REFER TO THE KNEE NOTEBOOK AND THE ENCLOSED ORANGE SUMMARY SHEET THAT WAS PROVIDED TO YOU AT YOUR OPTIMIZATION VISIT IF YOU HAVE A DDITIONAL QUESTIONS. COMPRESSION STOCKINGS ON BOTH LEGS. PUT ON IN THE MORNING AND REMOVE AT BEDTIME. CONSTIPATION IS A COMMON WHEN TAKING NARCOTIC PAIN MEDICATION. TAKE MIRALAX DAILY IF NEEDED. - Discharge Plan Prescriptions/Med Rec: Aspirin 325 mg PO DAILY #90 tablet Docusate Sodium [Colace] 100 mg PO BID PRN #60 cap PRN Reason: Constipation polyethylene glycoL 3350 [MiraLAX] 17 gm PO DAILY #1 bottle oxyCODONE 5 - 10 mg PO Q4H PRN 10 Days #40 tablet PRN Reason: Pain Home Medications: Home Meds Linagliptin [Tradjenta] 5 mg PO DAILY 06/03/17 [History] Simvastatin [Zocor] 40 mg PO DAILY 06/03/17 [History] Losartan Potassium 50 mg PO DAILY 06/21/17 [History] Glimepiride 1 mg PO DAILY 07/18/20 [History] amLODIPine Besylate [Amlodipine Besylate] 10 mg PO DAILY 07/18/20 [History] Acetaminophen [Tylenol] 650 mg PO Q6H PRN 30 Days #100 tablet MDD 8 07/26/20 [Rx] Aspirin 325 mg PO DAILY #90 tablet 07/26/20 [Rx] Docusate Sodium [Colace] 100 mg PO BID PRN #60 cap 07/26/20 [Rx] oxyCODONE 5 - 10 mg PO Q4H PRN 10 Days #40 tablet 07/26/20 [Rx] polyethylene glycoL 3350 [MiraLAX] 17 gm PO DAILY #1 bottle 07/26/20 [Rx] Patient Handouts: Total Knee Replacement, Care After, [id number], Total Knee Replacement, [id number] Referrals: Deena Neri NP [Nurse Practitioner] - 08/08/20 1:00 pm - Discharge Summary/Plan Comment DC Time >30 min.: No - General Info Date of Service: 07/26/20 (0800) Functional Status: Reports: Pain Controlled, Tolerating Diet (no N/V), Ambulating (with walker), Urinating - Review of Systems General: Denies: Fever Musculoskeletal: Reports: Joint Pain (post-surgical knee pain, rates mild and tolerable), Other Neurological: Reports: No Symptoms Psychiatric: Reports: No Symptoms - Patient Data Vitals - Most Recent: Last Vital Signs Temp 36.8 C 07/26/20 08:00 Pulse 85 07/26/20 08:00 Resp 18 07/26/20 08:00 BP 121/67 07/26/20 08:47 Pulse Ox 93 L 07/26/20 08:00 Weight - Most Recent: 113.398 kg I&O - Last 24 hours: Intake & Output 07/25/20 07/26/20 07/26/20 22:59 06:59 14:59 Intake Total 736 680 Output Total 800 960 Balance -64 -280 Lab Results - Last 24 hrs: Laboratory Results - last 24 hr 07/24/20 07/25/20 07/25/20 Range/Units 06:51 11:29 13:37 Hgb (13.0-17.0) g/dL Hct (38.0-50.0) % Sodium (136-148) mmol/L Potassium (3.5-5.1) mmol/L Chloride (98-107) mmol/L Carbon Dioxide (21.0-32.0) mmol/L BUN (7.0-18.0) mg/dL Creatinine (0.8-1.3) mg/dL Est Cr Clr Drug Dosing mL/min Estimated GFR (MDRD) ml/min Glucose (74-106) mg/dL POC Glucose 158 H 191 H 174 H (60-110) mg/dL Calcium (8.5-10.1) mg/dL Magnesium (1.8-2.4) mg/dL 07/25/20 07/26/20 07/26/20 Range/Units 17:01 05:55 05:55 Hgb 12.9 L (13.0-17.0) g/dL Hct 39.0 (38.0-50.0) % Sodium 134 L (136-148) mmol/L Potassium 4.7 (3.5-5.1) mmol/L Chloride 100 (98-107) mmol/L Carbon Dioxide 28.5 (21.0-32.0) mmol/L BUN 24 H (7.0-18.0) mg/dL Creatinine 1.7 H (0.8-1.3) mg/dL Est Cr Clr Drug Dosing 46.28 mL/min Estimated GFR (MDRD) 40.4 ml/min Glucose 150 H (74-106) mg/dL POC Glucose 161 H (60-110) mg/dL Calcium 8.4 L (8.5-10.1) mg/dL Magnesium 2.0 (1.8-2.4) mg/dL 07/26/20 Range/Units 06:40 Hgb (13.0-17.0) g/dL Hct (38.0-50.0) % Sodium (136-148) mmol/L Potassium (3.5-5.1) mmol/L Chloride (98-107) mmol/L Carbon Dioxide (21.0-32.0) mmol/L BUN (7.0-18.0) mg/dL Creatinine (0.8-1.3) mg/dL Est Cr Clr Drug Dosing mL/min Estimated GFR (MDRD) ml/min Glucose (74-106) mg/dL POC Glucose 144 H (60-110) mg/dL Calcium (8.5-10.1) mg/dL Magnesium (1.8-2.4) mg/dL Med Orders - Current: Current Medications Acetaminophen (Tylenol) 650 mg PO Q6H PRN PRN Reason: Pain Last Admin: 07/25/20 13:54 Dose: 650 mg Documented by: Al Hydroxide/Mg Hydroxide (Mag-Al Plus) 30 ml PO Q4H PRN PRN Reason: Indigestion Amlodipine Besylate (Norvasc) 10 mg PO DAILY [facility] Last Admin: 07/26/20 08:47 Dose: 10 mg Documented by: Aspirin (Aspirin) 325 mg PO DAILY [facility] Last Admin: 07/26/20 08:44 Dose: 325 mg Documented by: Bisacodyl (Dulcolax) 10 mg RECTAL DAILY PRN PRN Reason: Constipation Dextrose/Water (Dextrose 50% In Water) 50 ml IV ASDIRECTED PRN PRN Reason: Hypoglycemia Diphenhydramine HCl (Benadryl) 25 - 50 mg PO Q6H PRN PRN Reason: Itching Docusate Sodium (Colace) 100 mg PO BID PRN PRN Reason: Constipation Famotidine (Pepcid) 40 mg PO ACBREAKFAST [facility] Last Admin: 07/26/20 08:43 Dose: 40 mg Documented by: Glucagon (Glucagen) 1 mg IM ASDIRECTED PRN PRN Reason: Hypoglycemia Ropivacaine 49.25 ml/Ketorolac Tromethamine 30 mg/Epinephrine HCl 0.5 mg/Clonidine HCl 80 mcg/ Sodium Chloride 75 mls @ 50 mls/sec INJECT ASDIRECTED [facility] Cefazolin Sodium/Dextrose 2 gm (/ Premix) 50 mls @ 100 mls/hr IV ONCALL [facility] Lactated Ringer's (Ringers, Lactated) 1,000 mls @ 100 mls/hr IV ASDIRECTED [facility] Last Admin: 07/24/20 11:48 Dose: 100 mls/hr Documented by: Insulin Aspart (Novolog) 0 unit SUBCUT TIDAC [facility]; Protocol Last Admin: 07/26/20 07:00 Dose: Not Given Documented by: Losartan Potassium (Cozaar) 50 mg PO DAILY [facility] Last Admin: 07/26/20 08:47 Dose: 50 mg Documented by: Morphine Sulfate (Morphine) 1 - 2 mg IVPUSH Q3H PRN PRN Reason: Pain Last Admin: 07/25/20 23:31 Dose: 2 mg Documented by: Ondansetron HCl (Zofran) 4 mg IVPUSH Q6H PRN PRN Reason: Nausea/Vomiting Oxycodone HCl (Oxycodone) 5 - 10 mg PO Q4H PRN PRN Reason: Pain Last Admin: 07/26/20 06:44 Dose: 10 mg Documented by: Polyethylene Glycol (Miralax) 17 gm PO DAILY [facility] Last Admin: 07/26/20 08:47 Dose: 17 gm Documented by: Scopolamine (Transderm-Scop) 1.5 mg TRDERM ONARRIVE [facility] Last Admin: 07/24/20 07:14 Dose: 1.5 mg Documented by: Simvastatin (Zocor) 40 mg PO BEDTIME [facility] Last Admin: 07/25/20 20:15 Dose: 40 mg Documented by: Sodium Chloride (Saline Flush) 10 ml FLUSH ASDIRECTED PRN PRN Reason: Keep Vein Open Sodium Chloride (Saline Flush) 2.5 ml FLUSH ASDIRECTED PRN PRN Reason: Keep Vein Open Last Admin: 07/25/20 01:02 Dose: 2.5 ml Documented by: Tramadol HCl (Ultram) 50 - 100 mg PO Q6H PRN PRN Reason: Pain Last Admin: 07/25/20 15:31 Dose: 50 mg Documented by: Discontinued Medications Aspirin (Aspirin) 81 mg PO ONETIME ONE Stop: 07/24/20 07:56 Last Admin: 07/24/20 08:02 Dose: 324 mg Documented by: Aspirin (Aspirin) Confirm Administered Dose 325 mg .ROUTE .STK-MED ONE Stop: 07/25/20 08:56 Last Admin: 07/25/20 09:06 Dose: Not Given Documented by: Bupivacaine HCl (Sensorcaine-Mpf 0.25%) Confirm Administered Dose 30 ml .ROUTE .STK-MED ONE Stop: 07/24/20 07:40 Cefazolin Sodium (Ancef) Confirm Administered Dose 2 gm .ROUTE .STK-MED ONE Stop: 07/24/20 06:55 Cefazolin Sodium (Ancef) Confirm Administered Dose 1 gm .ROUTE .STK-MED ONE Stop: 07/24/20 08:29 Ephedrine Sulfate (Ephedrine Sulfate) Confirm Administered Dose 50 mg .ROUTE .STK-MED ONE Stop: 07/24/20 08:43 Famotidine (Pepcid) 40 mg IVPUSH ONARRIVE [facility] Last Admin: 07/24/20 07:16 Dose: 40 mg Documented by: Fentanyl (Sublimaze) Confirm Administered Dose 100 mcg .ROUTE .STK-MED ONE Stop: 07/24/20 09:38 Glycopyrrolate (Robinul) Confirm Administered Dose 0.2 mg .ROUTE .STK-MED ONE Stop: 07/24/20 10:11 Tranexamic Acid 1,000 mg/ (Sodium Chloride) 110 mls @ 600 mls/hr IV ASDIRECTED ONE Stop: 07/24/20 08:10 Last Admin: 07/25/20 19:27 Dose: Not Given Documented by: Sodium Chloride (Normal Saline) Confirm Administered Dose 20 mls @ as directed .ROUTE .STK-MED ONE Stop: 07/24/20 06:55 Cefazolin Sodium/Dextrose 2 gm (/ Premix) 50 mls @ 100 mls/hr IV Q8H [facility] Stop: 07/25/20 01:29 Last Admin: 07/25/20 01:06 Dose: 100 mls/hr Documented by: Magnesium Sulfate (Magnesium Sulfate In Water 2 Gm/50 Ml) 2 gm in 50 mls @ 50 mls/hr IV ONETIME ONE Stop: 07/25/20 09:08 Last Admin: 07/25/20 08:45 Dose: 50 mls/hr Documented by: Lidocaine (Xylocaine-Mpf 2%) Confirm Administered Dose 5 ml .ROUTE .STK-MED ONE Stop: 07/24/20 06:53 Lidocaine HCl (Xylocaine-Mpf 1%) Confirm Administered Dose 5 ml .ROUTE .STK-MED ONE Stop: 07/24/20 08:43 Midazolam HCl (Versed 1 Mg/Ml) Confirm Administered Dose 2 mg .ROUTE .STK-MED ONE Stop: 07/24/20 07:09 Ondansetron HCl (Zofran) Confirm Administered Dose 4 mg .ROUTE .STK-MED ONE Stop: 07/24/20 06:53 Propofol (Diprivan 20 Ml) Confirm Administered Dose 400 mg .ROUTE .STK-MED ONE Stop: 07/24/20 06:54 Propofol (Diprivan 20 Ml) Confirm Administered Dose 200 mg .ROUTE .STK-MED ONE Stop: 07/24/20 09:47 Tranexamic Acid (Cyklokapron) Confirm Administered Dose 2,000 mg .ROUTE .STK-MED ONE Stop: 07/24/20 08:08 - Exam Quality Assessment: Reports: Supplemental Oxygen, DVT Prophylaxis (ASA 325mg daily, bilateral SCDs when in bed, compression stockings) General: Reports: Alert, Oriented, Cooperative, No Acute Distress Lungs: Reports: Normal Respiratory Effort Extremities: No Pedal Edema, Normal Capillary Refill. No: Zeke's Sign Skin: Reports: Warm, Dry Wound/Incisions: Reports: Dressing Dry and Intact, No Drainage, Other (Surgical dressing removed, and had minimal drainage. AquaCell dressing applied) Neurological: Reports: Normal Speech Psy/Mental Status: Reports: Alert, Normal Affect Physical Findings Comments:: Independently sat on side of bed from lying down, actively moving RLE without an assistance or assistive device. Transferred from bed into chair independently. Sensation intact to RLE. Active plantarflexion and dorsiflexion to ankle. No swelling, erythema or pain to calf. No LE edema.
== END 2020-07-26 12:00 | disposition home or self-care (01) ==
LOC: MW.SDS 06:30 → MW.MS 11:28 → MW.SDS 07-25 13:44 → MW.MS 07-25 13:45
PROVIDERS: ADMIT Orthopaedic Surgery; ATTEND Orthopaedic Surgery
DX: M17.0 Bilateral primary osteoarthritis of knee (principal); M25.761 Osteophyte, right knee; I12.9 Hypertensive chronic kidney disease with stage 1 through stage 4 chronic kidney disease, or unspecified chronic kidney disease; E11.22 Type 2 diabetes mellitus with diabetic chronic kidney disease; N18.9 Chronic kidney disease, unspecified; E78.00 Pure hypercholesterolemia, unspecified; R91.8 Other nonspecific abnormal finding of lung field; Z01.812 Encounter for preprocedural laboratory examination; Z20.822 Contact with and (suspected) exposure to COVID-19; E66.9 Obesity, unspecified; Z68.33 Body mass index [BMI] 33.0-33.9, adult; Z79.899 Other long term (current) drug therapy; Z79.84 Long term (current) use of oral hypoglycemic drugs; Z87.19 Personal history of other diseases of the digestive system; Z98.890 Other specified postprocedural states
CPT/HCPCS: 27447; 36415; 71045; 73560; 80048; 82962; 83735; 85014; 85018; 85025; 86850; 86900; 86901; 87635; 88304; 88311; 97110; 97116; 97162; A9270; G0378; J0171; J0690; J0735; J1815; J1885; J2250; J2270; J2704; J2795; J3010; J3475; J3490; J7120; J2405; U0002

== ENCOUNTER 2023-05-11 16:26 | Emergency (ER) | payer BC | END 2023-05-11 18:06 | disposition home or self-care (01) | LOC: MW.ED 16:26 → MERGE 16:26 → MW.ED 18:06 | DX: M93.221 Osteochondritis dissecans, right elbow (principal); I10 Essential (primary) hypertension; E78.00 Pure hypercholesterolemia, unspecified; E11.9 Type 2 diabetes mellitus without complications; E66.9 Obesity, unspecified; Z79.84 Long term (current) use of oral hypoglycemic drugs; Z79.82 Long term (current) use of aspirin; Z79.899 Other long term (current) drug therapy; Z68.33 Body mass index [BMI] 33.0-33.9, adult; W00.0XXA Fall on same level due to ice and snow, initial encounter | CPT/HCPCS: 73080-26-RT; 73080-RT; 99282; 99283 ==